=== PATIENT | female | born 2000 | race Caucasian/White ===

== ENCOUNTER 2021-10-17 14:37 | Outpatient (REF) | payer MEDICAID, SELFPAY ==
--- NOTE | ~2021-10-17 | XR_ITS ---
EXAMINATION: XR ELBOW, RIGHT CLINICAL INFORMATION: Right elbow pain. COMPARISON: None TECHNIQUE: AP, lateral, and oblique views of the right elbow. FINDINGS: No displaced fracture or significant joint effusion. Alignment is anatomic. Joint spaces are maintained. XR/XR elbow RT min 3V IMPRESSION: No acute abnormality.
== END 2021-10-17 14:38 | disposition home or self-care (01) ==
LOC: HO.XRAY 14:37
PROVIDERS: Absent Provider Internal Medicine; PCP Internal Medicine; Visit Provider Student in an Organized Health Care Education/Training Program
DX: M25.521 Pain in right elbow (principal)
CPT/HCPCS: 73080

== ENCOUNTER 2022-08-11 16:26 | Emergency (ER) | payer MEDICAID, SELFPAY ==
[2022-08-11 16:30] VITALS: BP 118/75; PULSE 79; RESP 18; TEMP 36.9; O2SAT 100; BMI 23.3
--- NOTE | 2022-08-11 16:34 | ED.SKABFB ---
HPI - Skin/Abscess/Foreign Bdy General Chief complaint: Skin/Abscess/Foreign Body <TERRY Pollock - Last Filed: 08/11/22 16:38> Stated complaint: stabbed w needle at work <TERRY Pollock - Last Filed: 08/11/22 16:38> Time Seen by Provider: 08/11/22 17:41 <TERRY Pollock Last Filed: 08/11/22 16:38> Source: patient <TERRY Armendariz Last Filed: 08/11/22 17:52> Mode of arrival: ambulatory <TERRY Armendariz Last Filed: 08/11/22 17:52> Limitations: no limitations <TERRY Armendariz Last Filed: 08/11/22 17:52> History of Present Illness HPI narrative: This is a 21-year-old female presenting with a work related injury patient was accidentally stuck by a uncapped needle to her right hand ( webspace b/y finger 1-2) , she reports that she works at [employer] and she was taking out the trash, unknown whether not needle was used. She reports after the needle injury she vigorously washed the area with soap, water and peroxide. Patient does not know who the needle belong to therefore does not know the HIV/hepatitis-C status of other person. She personally does not have a known history of HIV or hepatitis-C. <TERRY Armendariz Last Filed: 08/11/22 17:52> Related Data Allergies/Adverse reactions: Allergies Allergy/AdvReac Type Severity Reaction Status Date / Time No Known Allergies Allergy Verified 08/11/22 16:32 <TERRY Pollock Last Filed: 08/11/22 16:38> Review of Systems Review of Systems: Constitutional : No Fever, No Chills, Cardiovascular : No Chest Pain, No SOB Respiratory : No Dyspnea Gastrointestinal : No abdominal pain Musculoskeletal : No Joint Swelling Skin : No rash, positive puncture wound Neuro : No Weakness, No Numbness Psych : No SI/HI <TERRY Armendariz Last Filed: 08/11/22 17:52> Yes all other systems are reviewed and are negative <TERRY Armendariz - Last Filed: 08/11/22 17:52> [facility] Past Medical History Attestation statement: The following information was validated with the patient. <TERRY Armendariz - Last Filed: 08/11/22 17:52> Source: old records reviewed and nursing notes reviewed <TERRY Armendariz - Last Filed: 08/11/22 17:52> Physical Exam Vital Signs: Vital Signs: Last Vital Signs Temp 98.4 F 08/11/22 16:30 Pulse 79 08/11/22 16:30 Resp 18 08/11/22 16:30 BP 118/75 08/11/22 16:30 Pulse Ox 100 08/11/22 16:30 O2 Del Method Room Air 08/11/22 16:30 BMI result Body Mass Index 23.3 <TERRY Pollock - Last Filed: 08/11/22 16:38> Vital Signs: Last Vital Signs Temp 98.4 F 08/11/22 16:30 Pulse 79 08/11/22 16:30 Resp 18 08/11/22 16:30 BP 118/75 08/11/22 16:30 Pulse Ox 100 08/11/22 16:30 O2 Del Method Room Air 08/11/22 16:30 BMI result Body Mass Index 23.3 <TERRY Armendariz - Last Filed: 08/11/22 17:52> Course Course Course Narrative: This is an RME: Additional HPI, ROS, PE not included below will be deferred to primary provider. This is a 21-year-old female presents emergency department today for evaluation of puncture wound to her right hand by an uncapped needle while taking the trash out at [facility]. The wound did not bleed, and she washed her puncture wound with a full bottle of peroxide. On examination, no obvious wound or puncture on her hand. VSS. <TERRY Pollock - Last Filed: 08/11/22 16:38> Reevaluation(s) Reevaluation #1: This time patient does not want post exposure prophylaxis will give her information for follow-up with Infectious Disease, and explained her that she can return if she changes her mind. Educated patient on diagnosis and treatment plan, answered all question, patient verbalizes understanding. At this time patient will be discharged home, advised to return with new or worsening symptoms. Educated on worrisome signs and symptoms and when to return. At this time I feel comfortable discharge home. HIV and hepatitis testing pending she will be called only if results are positive. I did have a long conversation with patient of risks versus benefits of initiating PEEP, patient chooses to wait until results are back <TERRY Armendariz - Last Filed: 08/11/22 17:52> Time: 17:47 <TERRY Armendariz - Last Filed: 08/11/22 17:52> Medical Decision Making Medical Decision Making [facility] Narrative: [id number] 21-year-old female presents status post puncture wound with uncapped needle of unknown person. Work related injury happened just prior to arrival. Physical examination benign. Unable to appreciate puncture wound. No bleeding. Concerns for possible transmission of infectious diseases such as hepatitis C or HIV. No signs of cellulitis or active bleeding at this time. Neurovascular status intact Based off of HIV Needle Stick Risk Assessment RASP << 0.001% or 1 in [id number] PEP not indicated according to the article however leaving it up to patient Plan basic labs, HIV and hepatitis-C testing <TERRY Armendariz Last Filed: 08/11/22 17:52> Differential Diagnosis Differential Diagnoses: The differential diagnosis associated with the presentation includes <TERRY Armendariz Last Filed: 08/11/22 17:52> Concerns for possible transmission of infectious diseases such as hepatitis C or HIV. No signs of cellulitis or active bleeding at this time. Neurovascular status intact <TERRY Armendariz Last Filed: 08/11/22 17:52> Admission/Observation Consideration of admission/observation: Escalation of care including admission/observation considered <TERRY Armendariz Last Filed: 08/11/22 17:52> Lab Data [facility] Lab Attestation statement: I reviewed the patient's lab results. <TERRY Armendariz Last Filed: 08/11/22 17:52> Result Diagrams: 08/11/22 17:26 08/11/22 17:26 <TERRY Pollock Last Filed: 08/11/22 16:38> Labs: Lab Results 08/11/22 Range/Units 17:26 WBC 9.0 (4.8-10.8) X10*3/uL RBC 4.73 (4.20-5.50) X10*6/uL Hgb 12.1 (12.0-16.0) g/dl Hct 37.9 (37.0-47.0) % MCV 80.1 (80.0-98.0) fL MCH 25.6 L (27.0-33.0) pg MCHC 31.9 (31.0-35.0) g/dl RDW 13.0 (11.0-16.0) % Plt Count 306 (160-400) X10*3/uL MPV 10.3 (9.4-12.3) fL Immature Gran % (Auto) 0.2 (0.0-0.4) % Neut % (Auto) 62.3 (45-73) % Lymph % (Auto) 30.9 (20-40) % King % (Auto) 5.9 (2-11) % Eos % (Auto) 0.3 (0-4) % Baso % (Auto) 0.4 (0-2) % Lymph # (Auto) 2.8 (1.2-4.9) X10*3/uL King # (Auto) 0.5 (0.1-1.2) X10*3/uL Eos # (Auto) 0.0 (0.0-0.4) X10*3/uL Baso # (Auto) 0.0 (0.0-0.2) X10*3/uL Abs Immat Gran (auto) 0.02 (0.00-0.03) X10*3/uL Absolute Neuts (auto) 5.6 (2.0-8.3) x10*3/uL Absolute Nucleated RBC 0.000 (0.0-0.012) X10*3/uL Nucleated RBC % (auto) 0.0 (0.0-0.2) /100WBC <TERRY Pollock - Last Filed: 08/11/22 16:38> Lab Results 08/11/22 Range/Units 17:26 WBC 9.0 (4.8-10.8) X10*3/uL RBC 4.73 (4.20-5.50) X10*6/uL Hgb 12.1 (12.0-16.0) g/dl Hct 37.9 (37.0-47.0) % MCV 80.1 (80.0-98.0) fL MCH 25.6 L (27.0-33.0) pg MCHC 31.9 (31.0-35.0) g/dl RDW 13.0 (11.0-16.0) % Plt Count 306 (160-400) X10*3/uL MPV 10.3 (9.4-12.3) fL Immature Gran % (Auto) 0.2 (0.0-0.4) % Neut % (Auto) 62.3 (45-73) % Lymph % (Auto) 30.9 (20-40) % King % (Auto) 5.9 (2-11) % Eos % (Auto) 0.3 (0-4) % Baso % (Auto) 0.4 (0-2) % Lymph # (Auto) 2.8 (1.2-4.9) X10*3/uL King # (Auto) 0.5 (0.1-1.2) X10*3/uL Eos # (Auto) 0.0 (0.0-0.4) X10*3/uL Baso # (Auto) 0.0 (0.0-0.2) X10*3/uL Abs Immat Gran (auto) 0.02 (0.00-0.03) X10*3/uL Absolute Neuts (auto) 5.6 (2.0-8.3) x10*3/uL Absolute Nucleated RBC 0.000 (0.0-0.012) X10*3/uL Nucleated RBC % (auto) 0.0 (0.0-0.2) /100WBC <TERRY Armendariz - Last Filed: 08/11/22 17:52> Core Measures AMI core measures followed: Yes <TERRY Armendariz Last Filed: 08/11/22 17:52> Measure exclusions: not indicated <TERRY Armendariz - Last Filed: 08/11/22 17:52> Critical Care Time Critical Care Time Critical Care Time: No <TERRY Armendariz - Last Filed: 08/11/22 17:52> Discharge Plan Discharge Clinical Impression: Accidental hypodermic needlestick injury <TERRY Pollock Last Filed: 08/11/22 16:38> Patient Disposition: Home, Self-Care <TERRY Pollock Last Filed: 08/11/22 16:38> Instructions: Needle Stick Injuries (ED) <TERRY Pollock - Last Filed: 08/11/22 16:38> Additional Instructions: Take your medications as prescribed. If you were prescribed antibiotics today, it is important that you take your medication to their entirety, do not skip any doses, do not finish them early. Follow-up with your primary care provider this week. Return to the emergency department with new or worsening symptoms. Such as fevers, chills, chest pain, shortness of breath, nausea, vomiting, dizziness, headache, vision changes, lethargy In case of emergency call 911 You decided to not get post exposure prophylactic treatment. If you change your mind please return and please follow-up with Infectious Disease. Also, please follow-up with the were connection as this was a work related injury <TERRY Pollock - Last Filed: 08/11/22 16:38> Referrals: Marcela Eason MD [Physician] - 2 days <TERRY Pollock - Last Filed: 08/11/22 16:38> Stand Alone Forms: Work/School Release <TERRY Pollock - Last Filed: 08/11/22 16:38>
[2022-08-11 17:31] LABS: MANUAL DIFF FLAG NO
[2022-08-11 17:33] LABS: Basophils Percent Auto 0.4 % (0-2); Eosinophils Percent Auto 0.3 % (0-4); Hematocrit 37.9 % (37.0-47.0); Hemoglobin 12.1 g/dl (12.0-16.0); Imm Gran Abs Auto 0.02 X10*3/uL (0.00-0.03); Imm Gran Pct Auto 0.2 % (0.0-0.4); Lymphocytes Absolute Auto 2.8 X10*3/uL (1.2-4.9); Lymphocytes Percent Auto 30.9 % (20-40); Mean Corpuscular HGB Conc 31.9 g/dl (31.0-35.0); Mean Corpuscular Hemoglobin 25.6 pg (27.0-33.0); Mean Corpuscular Volume 80.1 fL (80.0-98.0); Mean Platelet Volume 10.3 fL (9.4-12.3); Monocytes Absolute Auto 0.5 X10*3/uL (0.1-1.2); Monocytes Percent Auto 5.9 % (2-11); Neutrophils Absolute Auto 5.6 x10*3/uL (2.0-8.3); Neutrophils Percent Auto 62.3 % (45-73); Platelet Count 306 X10*3/uL (160-400); Red Blood Count 4.73 X10*6/uL (4.20-5.50)
[2022-08-11 17:56] LABS: Alanine Aminotransferase 10 U/L (0-31); Albumin Level 4.3 g/dL (3.5-5.0); Alkaline Phosphatase 57 U/L (39-117); Anion Gap 10 (12-20); Aspartate Amino Transferase 15 U/L (5-31); Bilirubin Direct 0.5 mg/dL (0.0-0.5); Bilirubin Total 1.7 mg/dL (0.0-1.0); Blood Urea Nitrogen 13 mg/dL (9-16); Calcium 9.2 mg/dL (8.4-10.2); Carbon Dioxide 26 mmol/L (22-29); Chloride 105 mmol/L (96-108); Creatinine Clr Calc Pharmacy 104.4; Estimated Glomerular Filt Rate > 60; Glucose Random 89 mg/dL (60-115); Sodium 137 mmol/L (135-145)
[2022-08-11 18:08] VITALS: BP 113/80; PULSE 63; RESP 16; O2SAT 99
[2022-08-11 18:30] LABS: HCG Quantitative < 2 mIU/mL
[2022-08-11 19:55] LABS: HIV AB/AG Nonreactive (Nonreactive); HIV Num 1 0.06 S/CO (0.00-0.99)
[2022-08-13 11:49] LABS: HBS Num1 0.17 mIU/mL (0-7.99); HBsAGNum1 0.34 S/CO (0.00-0.99); Hepatitis B Core Antibody Nonreactive (Nonreactive); Hepatitis B Surface Antigen Negative (Negative); ~Hepatitis B Surface Antibody NONREACTIVE (Nonreactive)
[2022-08-13 12:12] LABS: Hepatitis C Ab Exposure Source Nonreactive (Nonreactive)
== END 2022-08-11 18:13 | disposition home or self-care (01) ==
PROVIDERS: Physician Assistant; Physician Assistant Medical; Emergency Provider Internal Medicine; PCP Internal Medicine
DX: Z04.2 Encounter for examination and observation following work accident (principal); Z77.21 Contact with and (suspected) exposure to potentially hazardous body fluids
CPT/HCPCS: 36415; 80048; 80076; 84702; 85025; 86803; 99283; 99284

== ENCOUNTER 2023-12-07 12:59 | Emergency (ER) | payer MEDICAID, SELFPAY ==
--- NOTE | ~2023-12-07 | US_ITS ---
EXAMINATION: US ABDOMEN LIMITED CLINICAL INFORMATION: Epigastric pain, history of gallstones. COMPARISON: CT abdomen/pelvis 07/03/2019. TECHNIQUE: Targeted sonographic evaluation of the gallbladder. FINDINGS: There is a 1.6 cm impacted calculus in the gallbladder neck. There is no evidence of gallbladder wall thickening or pericholecystic free fluid. There is a negative Farnsworth's sign. Normal caliber of the common bile duct measuring up to 0.4 cm in diameter. US/US abdomen limited IMPRESSION: Cholelithiasis without sonographic evidence of acute cholecystitis. Electronically signed by: Dianna Hahn MD 12/07/2023 03:44 PM EDT
--- NOTE | ~2023-12-07 | XR_ITS ---
EXAMINATION: XR CHEST CLINICAL INFORMATION: CP COMPARISON: No relevant prior imaging available at the time of dictation. TECHNIQUE: 2 views of the chest FINDINGS: Lines and tubes: None. Clear lungs. No pleural effusion. No pneumothorax. Normal cardiomediastinal silhouette. XR/XR chest 2V IMPRESSION: * Clear lungs. Electronically signed by: Petty Jordan MD 12/07/2023 03:13 PM EDT RP
--- NOTE | ~2023-12-07 | CT_ITS ---
EXAMINATION: CT ANGIOGRAM OF THE CHEST WITH AND WITHOUT CONTRAST (CT PULMONARY ANGIOGRAM FOR PE) CLINICAL INFORMATION: x4 weeks, pleuritic chest pain, R/O PE COMPARISON: No pertinent prior studies are available for comparison. TECHNIQUE: Prior to contrast administration, noncontrast localization images were obtained. Subsequently, multidetector volumetric imaging was performed from the thoracic inlet to below the diaphragms following the administration of 65 mL Omnipaque 350 intravenous contrast. No contrast reaction reported. Sagittal, coronal, and MIP oblique sagittal reformatted images were obtained on the CT workstation, uploaded to PACS, and reviewed. Total exam dose-length product 289 mGy-cm FINDINGS: QUALITY OF STUDY/CONTRAST BOLUS: Satisfactory. PULMONARY ARTERIES: No central or segmental pulmonary emboli. THORACIC AORTA: No aneurysm or dissection. LUNG: No focal consolidation, nodules or masses. PLEURA: No pleural effusion or pneumothorax. MEDIASTINUM: Normal heart size. No pericardial effusion. No hilar or mediastinal lymphadenopathy. No evidence of septal bowing or right heart strain. CHEST WALL/AXILLA: No axillary or internal mammary lymphadenopathy. OSSEOUS STRUCTURES: No acute or suspicious osseous abnormality. UPPER ABDOMEN: Unremarkable. No reflux of contrast into the hepatic veins to suggest elevated right heart pressures. CT/CT angio chest PE protocol IMPRESSION: No acute pulmonary embolus VTE: negative Electronically signed by: Davidson Mcwilliams MD 12/07/2023 06:15 PM EDT
--- NOTE | 2023-12-07 13:02 | ECG_ITS ---
Test Reason : CHEST PAIN Blood Pressure : / mmHG Vent. Rate : 065 BPM Atrial Rate : 065 BPM P-R Int : 138 ms QRS Dur : 082 ms QT Int : 388 ms P-R-T Axes : 016 063 018 degrees QTc Int : 403 ms Normal sinus rhythm Normal ECG When compared with ECG of 27-AUG-2018 13:40, No significant change was found Referred By: Florinda Jain Electronically Signed By:NEFTALY CRAWFORD
[2023-12-07 13:15] VITALS: BP 128/92; PULSE 64; RESP 18; TEMP 36.4; O2SAT 98; BMI 33.0
--- NOTE | 2023-12-07 13:15 | ED_ITS ---
HPI - Chest Pain General Chief Complaint: Chest Pain Stated Complaint: Chest Pain Since Last Night Time Seen by Provider: 12/07/23 16:01 Source: patient Mode of arrival: ambulatory Limitations: no limitations History of Present Illness ED Provider: Dr. Harvey Thorpe HPI narrative: 23-year-old female , 4 weeks who presents emergency department for evaluation of sudden onset of mid sternal stabbing/tightness which is worse with breathing and movement. The pain radiates to her back. The pain came on suddenly yesterday at 21:00 hours while the patient was resting. She states she did fall asleep when she woke up this morning she still had the pain. She states that the pain did improve after she took ibuprofen and currently the pain is 4/10. The patient states that the pain does radiate to her back. She does feel short of breath but denied dyspnea on exertion. Patient denied fever or chills. She denied sore 3 0, cough, nausea, vomiting or diarrhea. She states she has a chronic runny nose. Patient was not had any pain in her lower extremities or lower abdominal pain. She denied headache. The patient states there were no complications during her or her delivery. She states she had a normal vaginal delivery. The patient does not breast-feeding. Related Data Allergies Allergy/AdvReac Type Severity Reaction Status Date / Time No Known Allergies Allergy Verified 12/07/23 13:17 Review of Systems 2 Review of Systems: Yes all other systems are reviewed and are negative [facility] Past Medical History [facility] Narrative: Social history: She denies tobacco, alcohol and drug use. Social History Social History Alcohol intake: never Smoked in Last 30 Days: No Use of substances other than those prescribed or required for medical reasons: No Advance Directives: No Advance Directives Information Provided: No Do you have a plan to hurt others: No Plan Patient : No Physical Exam 2 Vital Signs: Vital Signs: Last Vital Signs Temp 97.6 F 12/07/23 19:16 Pulse 57 12/07/23 19:16 Resp 16 12/07/23 19:16 BP 110/79 12/07/23 19:16 Pulse Ox 98 12/07/23 19:16 O2 Del Method Room Air 12/07/23 19:16 BMI result Body Mass Index 33.0 Vital signs revealed elevated diastolic blood pressure of 128/92 otherwise unremarkable. O2 saturation on room air was 98% Exam: General: Awake, alert in no distress Head: Normocephalic, atraumatic EENT: PERRL, Lids normal, sclera normal, conjunctiva normal, nose normal , ears normal, throat without erythema or exudates Neck: Supple, no adenopathy Lung: breath sounds symmetric, no wheezing, rales or rhonchi Chest: symmetric movement, nontender Heart: regular rate and rhythm, normal S1, S2 no murmurs or rubs Abdomen: soft, non-tender, nondistended, normal bowel sounds Back: no vertebral tenderness, no CVAT Extremities: no deformities, moves all extremities symmetrically Neuro: Awake, alert, oriented, normal speech, cranial nerves intact, moves all extremities symmetrically Psych: Pleasant, cooperative Course Course Course Narrative: This is a rapid medical exam. Deferred additional HPI, ROS, PE to primary provider. 23 yo female with history of gallstones here with complaints of epigastric pain/chest pain/back pain since last evening. Had steak/shrimp/mashed potatoes last evening. She is 4 weeks PP. Pain is worsened with inspiration. No swelling/pain in LE Will obtain labs, EKG, CXR, abdominal US, UA VSS -Corrie Jain APRN Medications Administered Discontinued Medications Generic Name Dose Route Start Last Admin Trade Name Freq PRN Reason Stop Dose Admin Sodium Chloride 1,000 mls @ 999 mls/hr 12/07/23 16:39 12/07/23 19:09 Ns IV 12/07/23 17:39 Infused .Q1H1M STA Infusion Iohexol 65 ml 12/07/23 18:09 12/07/23 18:09 Iohexol 350 Mg/Ml 100 Ml Infus..Btl IV 12/07/23 18:10 65 ml ONCE ONE Administration Medical Decision Making Medical Decision Making [facility] Narrative: 23-year-old female , 4 weeks who presents emergency department for evaluation of sudden onset of mid sternal stabbing/tightness which is worse with breathing and movement. Pain radiates to her back. The pain came on suddenly yesterday at 21:00 hours while the patient was resting, patient fell asleep but when she woke up this morning the pain was still there. Patient did take ibuprofen with some relief the pain but the pain is 4/10. She did feel short of breath but otherwise had no other complaints. Vital signs revealed an elevated diastolic blood pressure of 128/92. Physical examination was unremarkable with no tenderness palpation of her chest. Differential diagnosis: ?Includes but is not limited to myocardial infarction, myocardial ischemia, cardiomyopathy, pulmonary embolism, aortic dissection, costochondritis, chest wall pain, pleurisy, anemia, electrolyte abnormalities, preeclampsia Course: 16:56 My interpretation the patient's laboratory evaluation is as follows: WBC elevated 12,000. No anemia with an H&H of 13 and 42, low MCV of 78. CMP was normal except for an elevated alk-phos of 127. High sensitive troponin I was below detectable limits. Lipase was normal. Chest x-ray revealed no acute disease. EKG was unremarkable. Right upper quadrant ultrasound revealed cholelithiasis with no evidence of cholecystitis. Given the pleuritic nature of the patient's pain and sudden onset and the fact that she is 4 weeks , I did order a CT pulmonary angiogram PE protocol to rule out pulmonary embolism. 18:[address] angiogram PE protocol revealed no evidence for pulmonary embolism no other acute findings. Patient's symptoms are consistent with pleurisy and I did discuss the treatment and management of this with the patient. Patient was advised to take ibuprofen 400 mg every 6 hours for the next 4 days then as needed for pain. She was also advised to take Tylenol 1000 mg every 6 hours as needed for pain is well. She was given printed and verbal instructions and discharged home. Admission/Observation Consideration of admission/observation: Escalation of care including admission/observation considered Lab Data [facility] Lab Attestation statement: I reviewed the patient's lab results. 12/07/23 13:22 12/07/23 13:22 Labs: Lab Results 12/07/23 12/07/23 Range/Units 13:22 16:28 WBC 12.0 H (4.8-10.8) X10*3/uL RBC 5.37 (4.20-5.50) X10*6/uL Hgb 13.6 (12.0-16.0) g/dl Hct 42.1 (37.0-47.0) % MCV 78.4 L (80.0-98.0) fL MCH 25.3 L (27.0-33.0) pg MCHC 32.3 (31.0-35.0) g/dl RDW 12.7 (11.0-16.0) % Plt Count 317 (160-400) X10*3/uL MPV 10.2 (9.4-12.3) fL Immature Gran % (Auto) 0.2 (0.0-0.4) % Neut % (Auto) 70.9 (45-73) % Lymph % (Auto) 20.8 (20-40) % Brantley % (Auto) 6.7 (2-11) % Eos % (Auto) 1.0 (0-4) % Baso % (Auto) 0.4 (0-2) % Lymph # (Auto) 2.5 (1.2-4.9) X10*3/uL Brantley # (Auto) 0.8 (0.1-1.2) X10*3/uL Eos # (Auto) 0.1 (0.0-0.4) X10*3/uL Baso # (Auto) 0.1 (0.0-0.2) X10*3/uL Abs Immat Gran (auto) 0.03 (0.00-0.03) X10*3/uL Absolute Neuts (auto) 8.5 H (2.0-8.3) x10*3/uL Absolute Nucleated RBC 0.000 (0.0-0.012) X10*3/uL Nucleated RBC % (auto) 0.0 (0.0-0.2) /100WBC PT 10.6 L (11.1-13.3) SEC INR 0.9 (0.9-1.1) APTT 28.2 (26.0-36.8) SEC Sodium 139 (135-145) mmol/L Potassium 4.3 (3.3-5.1) mmol/L Chloride 105 (96-108) mmol/L Carbon Dioxide 22 (22-29) mmol/L Anion Gap 16 (12-20) BUN 11 (9-16) mg/dL Creatinine 0.75 (0.5-1.4) mg/dL Estim Creat Clear Calc 123.5 Estimated GFR > 60 Random Glucose 100 (60-115) mg/dL Calcium 9.8 D (8.4-10.2) mg/dL Total Bilirubin 0.5 (0.0-1.0) mg/dL Direct Bilirubin 0.2 (0.0-0.5) mg/dL AST 15 (5-31) U/L ALT 21 (0-31) U/L Alkaline Phosphatase 127 H (39-117) U/L Troponin I High Sens < 2.7 (<3.5-17.0) ng/L Total Protein 7.8 (6.5-8.0) g/dL Albumin 4.2 (3.5-5.0) g/dL Lipase 26 (8-78) U/L Urine Color Yellow Urine Appearance Cloudy Urine pH 7.0 (5.0-9.0) Ur Specific Norman 1.025 (1.005-1.025) Urine Protein Negative (Neg-Trace) mg/dL Urine Glucose (UA) Negative (Negative) mg/dL Urine Ketones Negative (Negative) mg/dL Urine Blood Negative (Negative) Urine Nitrite Negative (Negative) Ur Leukocyte Esterase Moderate (2+) H (Negative) Urine RBC 0-2 (0-2) /HPF Urine WBC 21-50 H (0-5) /HPF Ur Squamous Epith Cells 11-20 (0-2) /HPF Urine Bacteria 3+ (None Seen) Hyaline Casts 0-2 (0-2) /LPF Urine Test NEGATIVE (NEGATIVE) Independent Interpretation I performed an independent interpretation of an: EKG Interpretation: 16:06 My interpretation patient's 12 EKG done at 13:00 hours is as follows: Normal sinus rhythm with a rate of 65, normal NV interval, QRS duration and QTC interval, no ST segment elevation, no ST segment depression, inverted T-wave in 3 and V1, no PACs, no PVCs Radiology Impression Discussion of test interpretation with radiology: I have reviewed the radiologist's reading. Radiologist Impression: US abdomen limited IMPRESSION: Cholelithiasis without sonographic evidence of acute cholecystitis. Dictated By: Korin Hahn XR chest 2V IMPRESSION: * Clear lungs Dictated By: Petty Jordan MD CT angio chest PE protocol IMPRESSION: No acute pulmonary embolus VTE: negative Dictated By: Davidson Mcwilliams MD Chronic Conditions Patient?s care impacted by: Other ( x4 weeks) Discharge Plan Discharge Clinical Impression: Chest pain, pleuritic Patient Disposition: Home, Self-Care Instructions: Pleurisy (ED) Additional Instructions: Your blood work was unremarkable. Your EKG was normal. Your chest x-ray did not reveal any findings to explain your pain. The CT pulmonary angiogram PE protocol did not reveal any blood clots in your lungs which is very reassuring. The ultrasound of your gallbladder did reveal gallstones but you do not have any evidence for inflammation of the gallbladder. Your pain is worse with breathing and this is called pleurisy or pleuritic chest pain. This is sometimes caused by a virus of the space around your lungs. The treatment for pleurisy is to take anti-inflammatory medications. Take your ibuprofen 600 mg pills 1 pills every 6 hours for the next 4 days then after that every 6 hours as needed for pain Take extra-strength Tylenol (acetaminophen) 500 mg pills, 2 pills every 6 hours as needed for pain. Follow-up with your doctor in 2 days. Please return to the emergency department if your symptoms get worse or if you develop any symptoms that are concerning to you. Interventions: ED Discharge Assessment Last Done: 12/07/23 19:16 Discharge Date/Time: 12/07/23 19:17 Print Language: Prydeinig
[2023-12-07 13:27] LABS: MANUAL DIFF FLAG NO
[2023-12-07 13:28] LABS: Basophils Absolute Auto 0.1 X10*3/uL (0.0-0.2); Basophils Percent Auto 0.4 % (0-2); Eosinophils Absolute Auto 0.1 X10*3/uL (0.0-0.4); Hematocrit 42.1 % (37.0-47.0); Hemoglobin 13.6 g/dl (12.0-16.0); Imm Gran Abs Auto 0.03 X10*3/uL (0.00-0.03); Imm Gran Pct Auto 0.2 % (0.0-0.4); Lymphocytes Absolute Auto 2.5 X10*3/uL (1.2-4.9); Lymphocytes Percent Auto 20.8 % (20-40); Mean Corpuscular HGB Conc 32.3 g/dl (31.0-35.0); Mean Corpuscular Hemoglobin 25.3 pg (27.0-33.0); Mean Corpuscular Volume 78.4 fL (80.0-98.0); Mean Platelet Volume 10.2 fL (9.4-12.3); Monocytes Absolute Auto 0.8 X10*3/uL (0.1-1.2); Monocytes Percent Auto 6.7 % (2-11); Neutrophils Absolute Auto 8.5 x10*3/uL (2.0-8.3); Neutrophils Percent Auto 70.9 % (45-73); Platelet Count 317 X10*3/uL (160-400); Red Blood Count 5.37 X10*6/uL (4.20-5.50); Red Cell Distribution Width 12.7 % (11.0-16.0)
[2023-12-07 13:34] LABS: INTERNATIONAL NORM RATIO 0.9 (0.9-1.1); Prothrombin Time 10.6 SEC (11.1-13.3)
[2023-12-07 13:42] LABS: Alanine Aminotransferase 21 U/L (0-31); Albumin Level 4.2 g/dL (3.5-5.0); Alkaline Phosphatase 127 U/L (39-117); Anion Gap 16 (12-20); Aspartate Amino Transferase 15 U/L (5-31); Bilirubin Direct 0.2 mg/dL (0.0-0.5); Bilirubin Total 0.5 mg/dL (0.0-1.0); Blood Urea Nitrogen 11 mg/dL (9-16); Calcium 9.8 mg/dL (8.4-10.2); Carbon Dioxide 22 mmol/L (22-29); Chloride 105 mmol/L (96-108); Creatinine Clr Calc Pharmacy 123.5; Estimated Glomerular Filt Rate > 60; Glucose Random 100 mg/dL (60-115); Lipase 26 U/L (8-78); Potassium 4.3 mmol/L (3.3-5.1); Sodium 139 mmol/L (135-145); Total Protein 7.8 g/dL (6.5-8.0)
[2023-12-07 13:52] LABS: Troponin-I High Sensitivity < 2.7 ng/L (<3.5-17.0)
[2023-12-07 16:17] VITALS: BP 105/63; PULSE 61; RESP 14; TEMP 36.3; O2SAT 99
[2023-12-07 16:36] LABS: Appearance Urine Cloudy; Color Urine Yellow; Glucose Urine UA Negative (Negative); Leukocyte Esterase Urine Moderate (2+) (Negative); Nitrite Urine Negative (Negative); Specific Gravity - Urine 1.025 (1.005-1.025); UMIC TRIGGER UACC YES; UPreg QC Valid YES; Urine Blood Negative (Negative); Urine Ketones Negative (Negative); Urine Pregnancy NEGATIVE (NEGATIVE); Urine Protein Negative (Neg-Trace)
[2023-12-07 16:40] LABS: Bacteria Urine 3+ (None Seen); Hyaline Casts Urine 0-2 /LPF (0-2); RBC Urine 0-2 /HPF (0-2); UACC Culture Trigger YES; WBC Urine 21-50 /HPF (0-5)
[2023-12-07 16:52] LABS: Partial Thromboplastin Time 28.2 SEC (26.0-36.8)
[2023-12-07] MEDS: 0.9 % Sodium Chloride 1,000 ML 999 ML IV (16:52)
[2023-12-07 17:00] VITALS: BP 111/70; PULSE 58; RESP 12; O2SAT 99
--- NOTE | 2023-12-07 17:03 | PC.NURSE ---
Pt comes to ED today for c/o L chest pain 07/23 with radiation to the back. Pain began last night with no relieving factors. IVF running. VSS and A&Ox3
[2023-12-07 18:00] VITALS: BP 110/79; PULSE 57; RESP 16; TEMP 36.4; O2SAT 98
[2023-12-07] MEDS: iohexoL 350 MG/ML 100 ML INFUS..BTL 65 ML IV (18:09)
[2023-12-07 19:16] VITALS: BP 110/79; PULSE 57; RESP 16; TEMP 36.4; O2SAT 98
== END 2023-12-07 19:17 | disposition home or self-care (01) ==
PROVIDERS: Nurse Practitioner Family; Emergency Provider Emergency Medicine Emergency Medical Services; PCP Internal Medicine
DX: R07.9 Chest pain, unspecified (principal); R06.02 Shortness of breath
CPT/HCPCS: 36415; 71046; 71275; 76705; 80048; 80076; 81001; 81025; 83690; 84484; 85025; 85610; 85730; 87086; 93005; 96360; 96361; 99285; Q9967

== ENCOUNTER 2023-12-20 19:41 | Inpatient (IN) | payer MEDICAID, SELFPAY ==
--- NOTE | ~2023-12-20 | US_ITS ---
EXAMINATION: US ABDOMEN LIMITED CLINICAL INFORMATION: Right upper quadrant pain. COMPARISON: Ultrasound abdomen dated December 07, 2023. TECHNIQUE: Real-time imaging of the right upper quadrant abdominal viscera. Gallbladder and common bile duct were imaged as per request of ordering physician. FINDINGS: GALLBLADDER: The gallbladder is physiologically distended . There is a 1.4 cm calculus at the gallbladder neck. There is no gallbladder wall thickening or pericholecystic fluid. COMMON BILE DUCT: Normal in caliber measuring 0.3 cm in diameter. US/US abdomen limited IMPRESSION: Cholelithiasis. No sonographic evidence of acute cholecystitis. Electronically signed by: Baldev Wang DO 12/20/2023 09:19 PM EDT
[2023-12-20 20:11] VITALS: BP 116/82; PULSE 79; RESP 18; TEMP 36.4; O2SAT 97; BMI 32.8
--- NOTE | 2023-12-20 20:14 | ED_ITS ---
HPI - General Adult General Chief complaint: Abdominal Pain Stated complaint: abd pain, vomiting Time Seen by Provider: 12/20/23 22:39 Related Data Home Medications ?Medication ?Instructions ?Recorded ?Confirmed No Known Home Meds 12/21/23 12/21/23 Allergies Allergy/AdvReac Type Severity Reaction Status Date / Time No Known Allergies Allergy Verified 12/20/23 20:13 [facility] Social History Social History Household Members: Family Housing: House Do you presently have visiting nurse or other home services: No Alcohol intake: never Patient Tobacco Use Status: Never used Tobacco Smoked in Last 30 Days: No Use of substances other than those prescribed or required for medical reasons: No Currently Displaying Signs/Symptoms of Drug Intoxication Withdrawal: No Have you been hit, kicked, punched, or otherwise hurt by someone within the past year? If so, by whom?: No Do you feel safe in your current relationship?: No Current Relationship Is there a partner from a previous relationship who is making you feel unsafe now?: No Are you made to feel afraid or neglected: No Advance Directives: No Advance Directives Information Provided: No Do you have a plan to hurt others: No Plan Recently lost weight without trying: No Eating poorly because of decreased appetite: No Nutrition Risks: No Nutritional Risk Patient : No : No Poor oral hygiene: No Physical Exam ED Vital Signs: Vital Signs - 24 hr 12/20/23 20:11 12/20/23 21:52 Temperature 97.6 F 98.5 F Pulse Rate 79 61 Respiratory Rate 18 17 Blood Pressure 116/82 124/77 Pulse Oximetry 97 99 Oxygen Delivery Method Room Air Room Air BMI result Body Mass Index 32.8 Course Course Course Narrative: RME performed by Indira Ng PA-C. Patient is a 23 year old assigned female at presenting to the emergency department with right upper quadrant abdominal pain. Patient states she is having sharp, stabbing, right upper quadrant abdominal pain. Patient states that she has a history of gallstones. Detailed physical exam and review of systems are deferred to the lower in supervisor. Labs, imaging, and swabs ordered. Patient placed back in the waiting room pending room availability and results. Patient seen and dispositioned by Dr. Haynes. Please refer to his note. Medications Administered Generic Name Dose Route Start Last Admin Trade Name Freq PRN Reason Stop Dose Admin Acetaminophen 1,000 mg in 100 mls @ 400 mls/hr 12/21/23 00:00 12/21/23 11:23 Ofirmev IV 12/21/23 18:14 Infused Q6H HERNÁN Infusion Dextrose/Lactated Ringer's 1,000 mls @ 80 mls/hr 12/20/23 23:45 12/21/23 11:39 D5lr IVCONT 0 mls/hr .[id number] HERNÁN Infusion Piperacillin Sod/Tazobactam 50 mls @ 100 mls/hr 12/21/23 08:00 12/21/23 09:18 Sod 3.375 gm/ Sodium Chloride IV Infused Q6H HERNÁN Infusion Oxycodone HCl 5 mg 12/20/23 23:59 12/21/23 01:30 Oxycodone Hcl Immed Release 5 Mg Tablet PO 5 mg Q6H PRN Administration Pain, Moderate(Pain Scale 4-6) Medical Decision Making Lab Data 12/21/23 05:16 12/20/23 20:29 Labs: Lab Results 12/20/23 Range/Units 20:29 WBC 15.5 H (4.8-10.8) X10*3/uL RBC 5.18 (4.20-5.50) X10*6/uL Hgb 13.0 (12.0-16.0) g/dl Hct 40.8 (37.0-47.0) % MCV 78.8 L (80.0-98.0) fL MCH 25.1 L (27.0-33.0) pg MCHC 31.9 (31.0-35.0) g/dl RDW 12.8 (11.0-16.0) % Plt Count 412 H D (160-400) X10*3/uL MPV 9.4 (9.4-12.3) fL Immature Gran % (Auto) 0.5 H (0.0-0.4) % Neut % (Auto) 85.8 H (45-73) % Lymph % (Auto) 10.5 L (20-40) % [place] % (Auto) 2.8 (2-11) % Eos % (Auto) 0.1 (0-4) % Baso % (Auto) 0.3 (0-2) % Lymph # (Auto) 1.6 (1.2-4.9) X10*3/uL [place] # (Auto) 0.4 (0.1-1.2) X10*3/uL Eos # (Auto) 0.0 (0.0-0.4) X10*3/uL Baso # (Auto) 0.1 (0.0-0.2) X10*3/uL Abs Immat Gran (auto) 0.07 H (0.00-0.03) X10*3/uL Absolute Neuts (auto) 13.3 H (2.0-8.3) x10*3/uL Absolute Nucleated RBC 0.000 (0.0-0.012) X10*3/uL Nucleated RBC % (auto) 0.0 (0.0-0.2) /100WBC Sodium 138 (135-145) mmol/L Potassium 3.9 (3.3-5.1) mmol/L Chloride 106 (96-108) mmol/L Carbon Dioxide 24 (22-29) mmol/L Anion Gap 12 (12-20) BUN 11 (9-16) mg/dL Creatinine 0.74 (0.5-1.4) mg/dL Estim Creat Clear Calc 124.9 Estimated GFR > 60 Random Glucose 120 H (60-115) mg/dL Calcium 9.4 (8.4-10.2) mg/dL Magnesium 2.0 (1.6-2.6) mg/dL Total Bilirubin 0.5 (0.0-1.0) mg/dL AST 16 (5-31) U/L ALT 19 (0-31) U/L Alkaline Phosphatase 109 (39-117) U/L Total Protein 8.0 (6.5-8.0) g/dL Albumin 4.2 (3.5-5.0) g/dL Beta HCG, Quant < 2 mIU/mL Urine Color Yellow Urine Appearance Clear Urine pH 8.5 (5.0-9.0) Ur Specific [place] 1.025 (1.005-1.025) Urine Protein 30 (1+) H (Neg-Trace) mg/dL Urine Glucose (UA) Negative (Negative) mg/dL Urine Ketones Negative (Negative) mg/dL Urine Blood Negative (Negative) Urine Nitrite Negative (Negative) Ur Leukocyte Esterase Small (1+) H (Negative) Urine RBC 0-2 (0-2) /HPF Urine WBC 6-10 H (0-5) /HPF Ur Squamous Epith Cells 11-20 (0-2) /HPF Urine Bacteria 2+ (None Seen) Hyaline Casts 0-2 (0-2) /LPF Influenza Type A (PCR) NEGATIVE (Negative) Influenza Type B (PCR) NEGATIVE (Negative) RSV RNA Qual (PCR) NEGATIVE (Negative) SARS-CoV-2 RNA (RT-PCR) NEGATIVE (Negative) Discharge Plan Discharge Clinical Impression: Gallstone (impacted) Patient Disposition: Admitted As Inpatient Interventions: Admission Worksheet (ED) Last Done: 12/21/23 02:30 Discharge Date/Time: 12/21/23 03:05
--- NOTE | 2023-12-20 20:26 | MHC.EDTECH ---
Patient brought into triage area,labs/Sars/Urine obtained and sent to lab.
[2023-12-20 20:36] LABS: MANUAL DIFF FLAG NO
[2023-12-20 20:39] LABS: Basophils Absolute Auto 0.1 X10*3/uL (0.0-0.2); Basophils Percent Auto 0.3 % (0-2); Eosinophils Percent Auto 0.1 % (0-4); Hematocrit 40.8 % (37.0-47.0); Imm Gran Abs Auto 0.07 X10*3/uL (0.00-0.03); Imm Gran Pct Auto 0.5 % (0.0-0.4); Lymphocytes Absolute Auto 1.6 X10*3/uL (1.2-4.9); Lymphocytes Percent Auto 10.5 % (20-40); Mean Corpuscular HGB Conc 31.9 g/dl (31.0-35.0); Mean Corpuscular Hemoglobin 25.1 pg (27.0-33.0); Mean Corpuscular Volume 78.8 fL (80.0-98.0); Mean Platelet Volume 9.4 fL (9.4-12.3); Monocytes Absolute Auto 0.4 X10*3/uL (0.1-1.2); Monocytes Percent Auto 2.8 % (2-11); Neutrophils Absolute Auto 13.3 x10*3/uL (2.0-8.3); Neutrophils Percent Auto 85.8 % (45-73); Platelet Count 412 X10*3/uL (160-400); Red Blood Count 5.18 X10*6/uL (4.20-5.50); Red Cell Distribution Width 12.8 % (11.0-16.0); White Blood Count 15.5 X10*3/uL (4.8-10.8)
[2023-12-20 20:42] LABS: Appearance Urine Clear; Color Urine Yellow; Glucose Urine UA Negative (Negative); Leukocyte Esterase Urine Small (1+) (Negative); Nitrite Urine Negative (Negative); PH 8.5 (5.0-9.0); Specific Gravity - Urine 1.025 (1.005-1.025); UMIC TRIGGER UACC YES; Urine Blood Negative (Negative); Urine Ketones Negative (Negative); Urine Protein 30 (1+) mg/dL (Neg-Trace)
[2023-12-20 20:54] LABS: Bacteria Urine 2+ (None Seen); Hyaline Casts Urine 0-2 /LPF (0-2); RBC Urine 0-2 /HPF (0-2); UACC Culture Trigger YES
[2023-12-20 21:00] LABS: Alanine Aminotransferase 19 U/L (0-31); Albumin Level 4.2 g/dL (3.5-5.0); Alkaline Phosphatase 109 U/L (39-117); Anion Gap 12 (12-20); Aspartate Amino Transferase 16 U/L (5-31); Bilirubin Total 0.5 mg/dL (0.0-1.0); Blood Urea Nitrogen 11 mg/dL (9-16); Calcium 9.4 mg/dL (8.4-10.2); Carbon Dioxide 24 mmol/L (22-29); Chloride 106 mmol/L (96-108); Creatinine Clr Calc Pharmacy 124.9; Estimated Glomerular Filt Rate > 60; Glucose Random 120 mg/dL (60-115); Potassium 3.9 mmol/L (3.3-5.1); Sodium 138 mmol/L (135-145)
[2023-12-20 21:13] LABS: HCG Quantitative < 2 mIU/mL; Influenza A PCR NEGATIVE (Negative); Influenza B PCR NEGATIVE (Negative); Resp Syncy Virus RNA Qual PCR NEGATIVE (Negative); SARS COV2 PCR INHOUSE NEGATIVE (Negative)
[2023-12-20 21:52] VITALS: BP 124/77; PULSE 61; RESP 17; TEMP 36.9; O2SAT 99
--- NOTE | 2023-12-20 23:52 | ED_ITS ---
HPI - Abdominal Pain General Chief Complaint: Abdominal Pain Stated Complaint: abd pain, vomiting Time Seen by Provider: 12/20/23 22:39 Source: patient Mode of arrival: ambulatory Limitations: no limitations History of Present Illness ED Provider: maritza HPI narrative: Patient with history of gallstones comes here for increased pain since she woke up in the morning associated with nausea and vomiting unable to hold any liquids or solids down patient has had ultrasound done prior to my evaluation which showed would 0.4 cm stone in gallbladder neck with no cholecystitis finding Related Data Allergies Allergy/AdvReac Type Severity Reaction Status Date / Time No Known Allergies Allergy Verified 12/20/23 20:13 Review of Systems Review of Systems Yes all other systems are reviewed and are negative [facility] Social History Social History Alcohol intake: never Advance Directives: No Advance Directives Information Provided: No Do you have a plan to hurt others: No Plan Physical Exam ED Vital Signs: Vital Signs - 24 hr 12/20/23 20:11 12/20/23 21:52 Temperature 97.6 F 98.5 F Pulse Rate 79 61 Respiratory Rate 18 17 Blood Pressure 116/82 124/77 Pulse Oximetry 97 99 Oxygen Delivery Method Room Air Room Air BMI result Body Mass Index 32.8 Appearance: Alert. Oriented X3. No acute distress. Eyes: No pallor or icterus ENT: Pharynx normal. Oral Mucosa moist Neck: Normal inspection. Neck supple. CVS: Normal heart rate and rhythm. Pulses normal. Respiratory: No respiratory distress. Equal air entry bilateral, no wheezing/rales/rhonchi Abdomen: Soft , tenderness right upper quadrant with guarding no rebound tenderness Bowel sounds are present, no mass palpable, no CVA tenderness Skin: Skin warm and dry. Normal skin color. Normal skin turgor. Extremities: No lower extremity edema. No calf tenderness Neuro: Oriented X 3. Medical Decision Making Medical Decision Making [facility] Narrative: Patient with 1.4 cm gallstone at the neck of the gallbladder with right upper quadrant pain with multiple times vomiting case discussed Dr. Forde surgeon will admit the patient to his service for possible cholecystectomy in a.m. likely patient has a impacted gallstone in the neck of the gallbladder Differential Diagnosis Differential Diagnoses: The differential diagnosis associated with the presentation includes Lab Data [facility] Lab Attestation statement: I reviewed the patient's lab results. 12/20/23 20:29 12/20/23 20:29 Labs: Lab Results 12/20/23 Range/Units 20:29 WBC 15.5 H (4.8-10.8) X10*3/uL RBC 5.18 (4.20-5.50) X10*6/uL Hgb 13.0 (12.0-16.0) g/dl Hct 40.8 (37.0-47.0) % MCV 78.8 L (80.0-98.0) fL MCH 25.1 L (27.0-33.0) pg MCHC 31.9 (31.0-35.0) g/dl RDW 12.8 (11.0-16.0) % Plt Count 412 H D (160-400) X10*3/uL MPV 9.4 (9.4-12.3) fL Immature Gran % (Auto) 0.5 H (0.0-0.4) % Neut % (Auto) 85.8 H (45-73) % Lymph % (Auto) 10.5 L (20-40) % [place] % (Auto) 2.8 (2-11) % Eos % (Auto) 0.1 (0-4) % Baso % (Auto) 0.3 (0-2) % Lymph # (Auto) 1.6 (1.2-4.9) X10*3/uL [place] # (Auto) 0.4 (0.1-1.2) X10*3/uL Eos # (Auto) 0.0 (0.0-0.4) X10*3/uL Baso # (Auto) 0.1 (0.0-0.2) X10*3/uL Abs Immat Gran (auto) 0.07 H (0.00-0.03) X10*3/uL Absolute Neuts (auto) 13.3 H (2.0-8.3) x10*3/uL Absolute Nucleated RBC 0.000 (0.0-0.012) X10*3/uL Nucleated RBC % (auto) 0.0 (0.0-0.2) /100WBC Sodium 138 (135-145) mmol/L Potassium 3.9 (3.3-5.1) mmol/L Chloride 106 (96-108) mmol/L Carbon Dioxide 24 (22-29) mmol/L Anion Gap 12 (12-20) BUN 11 (9-16) mg/dL Creatinine 0.74 (0.5-1.4) mg/dL Estim Creat Clear Calc 124.9 Estimated GFR > 60 Random Glucose 120 H (60-115) mg/dL Calcium 9.4 (8.4-10.2) mg/dL Magnesium 2.0 (1.6-2.6) mg/dL Total Bilirubin 0.5 (0.0-1.0) mg/dL AST 16 (5-31) U/L ALT 19 (0-31) U/L Alkaline Phosphatase 109 (39-117) U/L Total Protein 8.0 (6.5-8.0) g/dL Albumin 4.2 (3.5-5.0) g/dL Beta HCG, Quant < 2 mIU/mL Urine Color Yellow Urine Appearance Clear Urine pH 8.5 (5.0-9.0) Ur Specific [place] 1.025 (1.005-1.025) Urine Protein 30 (1+) H (Neg-Trace) mg/dL Urine Glucose (UA) Negative (Negative) mg/dL Urine Ketones Negative (Negative) mg/dL Urine Blood Negative (Negative) Urine Nitrite Negative (Negative) Ur Leukocyte Esterase Small (1+) H (Negative) Urine RBC 0-2 (0-2) /HPF Urine WBC 6-10 H (0-5) /HPF Ur Squamous Epith Cells 11-20 (0-2) /HPF Urine Bacteria 2+ (None Seen) Hyaline Casts 0-2 (0-2) /LPF Influenza Type A (PCR) NEGATIVE (Negative) Influenza Type B (PCR) NEGATIVE (Negative) RSV RNA Qual (PCR) NEGATIVE (Negative) SARS-CoV-2 RNA (RT-PCR) NEGATIVE (Negative) Independent Interpretation I performed an independent interpretation of an: Ultrasound Radiology Impression Discussion of test interpretation with radiology: I have reviewed the radiologist's reading. Radiologist Impression: [address] [id number] Ultrasound Report Signed Patient: Mel Millan MR#: [id number] : 2000 Acct:[id number] Age/Sex: 23 / F ADM Date: 12/20/23 Loc: HO.ED Attending Dr: Ordering Physician: Indira Ng Date of Service: 12/20/23 Procedure(s): US abdomen limited Accession Number(s): [id number] cc: Indira Ng; Physician,None ~ EXAMINATION: US ABDOMEN LIMITED CLINICAL INFORMATION: Right upper quadrant pain. COMPARISON: Ultrasound abdomen dated December 07, 2023. TECHNIQUE: Real-time imaging of the right upper quadrant abdominal viscera. Gallbladder and common bile duct were imaged as per request of ordering physician. FINDINGS: GALLBLADDER: The gallbladder is physiologically distended . There is a 1.4 cm calculus at the gallbladder neck. There is no gallbladder wall thickening or pericholecystic fluid. COMMON BILE DUCT: Normal in caliber measuring 0.3 cm in diameter. US/US abdomen limited IMPRESSION: Cholelithiasis. No sonographic evidence of acute cholecystitis. Electronically signed by: Baldev Wang DO 12/20/2023 09:19 PM EDT Dictated By: Baldev Wang Jr, DO Signed By: <Electronically signed by Baldev Wang Jr, in OV> 12/20/23 2119 Medications Administered Generic Name Dose Route Start Last Admin Trade Name Freq PRN Reason Stop Dose Admin Acetaminophen 1,000 mg in 100 mls @ 400 mls/hr 12/21/23 00:00 12/21/23 00:31 Ofirmev IV 12/21/23 18:14 400 mls/hr Q6H HERNÁN Administration Dextrose/Lactated Ringer's 1,000 mls @ 125 mls/hr 12/20/23 23:45 12/21/23 01:26 D5lr IVCONT 125 mls/hr .Q8H HERNÁN Administration Oxycodone HCl 5 mg 12/20/23 23:59 12/21/23 01:30 Oxycodone Hcl Immed Release 5 Mg Tablet PO 5 mg Q6H PRN Administration Pain, Moderate(Pain Scale 4-6) Discharge Plan Discharge Clinical Impression: Gallstone (impacted) Patient Disposition: Admitted As Inpatient
[2023-12-21] VITALS (10 sets, daily range): BP systolic 103–125; BP diastolic 66–86; PULSE 53–85; RESP 12–18; TEMP 36.1–36.5; O2SAT 96–99
--- NOTE | 2023-12-21 00:18 | PC.NURSE ---
Per ER MD Haynes, no BCX/lactic needed despite elevated WBC count and cholecystitis.
[2023-12-21] MEDS: Acetaminophen 1,000 MG/100 ML PIGGYBACK 400 MG IV ×4 (00:31→17:52)
[2023-12-21] MEDS: Dextrose 5 % and Lactated Ring 1,000 ML 125 ML IVCONT ×2 (01:26→10:05)
[2023-12-21] MEDS: oxyCODONE HCl Immed Release 5 MG TABLET PO ×2 (01:30→15:37)
--- NOTE | 2023-12-21 01:32 | PC.NURSE ---
IV fluid administered per orders. Pt c/o 08/22 pain in abdomen, medicated with PRN oxycodone per JUN.
[2023-12-21 06:31] LABS: MANUAL DIFF FLAG NO
[2023-12-21 06:53] LABS: Basophils Percent Auto 0.3 % (0-2); Eosinophils Percent Auto 0.3 % (0-4); Hematocrit 41.2 % (37.0-47.0); Hemoglobin 13.1 g/dl (12.0-16.0); Imm Gran Abs Auto 0.08 X10*3/uL (0.00-0.03); Imm Gran Pct Auto 0.5 % (0.0-0.4); Mean Corpuscular HGB Conc 31.8 g/dl (31.0-35.0); Mean Corpuscular Hemoglobin 25.1 pg (27.0-33.0); Mean Corpuscular Volume 78.9 fL (80.0-98.0); Mean Platelet Volume 10.1 fL (9.4-12.3); Monocytes Percent Auto 6.3 % (2-11); Neutrophils Absolute Auto 11.6 x10*3/uL (2.0-8.3); Neutrophils Percent Auto 73.6 % (45-73); Platelet Count 393 X10*3/uL (160-400); Red Blood Count 5.22 X10*6/uL (4.20-5.50); Red Cell Distribution Width 12.7 % (11.0-16.0); White Blood Count 15.8 X10*3/uL (4.8-10.8)
--- NOTE | 2023-12-21 07:45 | PM.HPGS ---
History of Present Illness History of Present Illness Date of Service: 12/21/23 Chief complaint: Acute cholecystitis Narrative: Mel Millan is a 23 year old female presenting with complaints of right upper quadrant abdominal pain which began yesterday evening. She reports previous episodes of similar pain which occurred during her but resolved spontaneously. The current episode is worst episode she has experienced. She reports the pain at 10/10. The pain is mainly in the right upper quadrant with radiation to the back and was associated with nausea and vomiting. She denies fever, chills, diarrhea or constipation. She has 1.5 months with her 2nd child. Workup in the emergency department revealed an elevated WBC of 15.5 and ultrasound of the abdomen revealed a gallstone in the neck of the gallbladder with a physiologically distended gallbladder. No wall thickening or pericholecystic fluid is identified. The common bile duct is normal as well. This morning her abdominal pain is somewhat improved but remains in the 3-4 out of 10 level. She denies any further nausea or vomiting. Review of Systems Review of Systems: Yes all other systems are reviewed and are negative Constitutional: Constitutional: Denies chills, Denies fever(s), Denies headache(s), Reports poor appetite and Denies weakness ENT: Denies headache(s) Cardiovascular: Cardiovascular: Denies chest pain, Denies irregular heart rhythm, Denies palpitations and Denies dyspnea Respiratory: Respiratory: Denies cough, Denies excessive phlegm production and Denies dyspnea Gastrointestinal: Gastrointestinal: Reports abdominal pain, Denies bloating, Denies change in bowel habits, Denies constipation, Denies heartburn, Denies diarrhea, Reports nausea and Reports vomiting Genitourinary: Genitourinary: Denies urinary frequency Musculoskeletal: Musculoskeletal: Denies back pain, Denies muscle weakness and Denies numbness Integumentary/Breasts: Skin/Breast: Denies changing lesions and Denies unusual bruising Neurologic: Denies headache(s), Denies numbness, Denies paresthesias and Denies weakness Psychiatric: Psychiatric: Denies anxiety and Denies depression Endocrine: Endocrine: Denies palpitations Hematologic/Lymphatic: Hematologic/Lymphatic: Denies lymphadenopathy PMFSH Social History Social History Household Members: Family Housing: House Do you presently have visiting nurse or other home services: No Alcohol intake: never Patient Tobacco Use Status: Never used Tobacco Smoked in Last 30 Days: No Use of substances other than those prescribed or required for medical reasons: No Currently Displaying Signs/Symptoms of Drug Intoxication Withdrawal: No Have you been hit, kicked, punched, or otherwise hurt by someone within the past year? If so, by whom?: No Do you feel safe in your current relationship?: No Current Relationship Is there a partner from a previous relationship who is making you feel unsafe now?: No Are you made to feel afraid or neglected: No Advance Directives: No Advance Directives Information Provided: No Do you have a plan to hurt others: No Plan Recently lost weight without trying: No Eating poorly because of decreased appetite: No Nutrition Risks: No Nutritional Risk Patient : No : No Poor oral hygiene: No Meds Allergies Allergy/AdvReac Type Severity Reaction Status Date / Time No Known Allergies Allergy Verified 12/20/23 20:13 Active Medications: Current Medications Calcium Carbonate (Calcium Carbonate 750 Mg Tab.Chew) 750 mg PO Q4H PRN PRN Reason: Heartburn Hydromorphone HCl (Hydromorphone Hcl 0.5 Mg/0.5 Ml Syringe) 0.5 mg IVPUSH Q3H PRN; Protocol PRN Reason: Pain, Severe (Pain Scale 7-10) Acetaminophen (Ofirmev) 1,000 mg in 100 mls @ 400 mls/hr IV Q6H [facility] Stop: 12/21/23 18:14 Last Infusion: 12/21/23 06:25 Dose: Infused Dextrose/Lactated Ringer's (D5lr) 1,000 mls @ 125 mls/hr IVCONT .Q8H [facility] Last Admin: 12/21/23 07:09 Dose: Not Given Piperacillin Sod/Tazobactam (Sod 3.375 gm/ Sodium Chloride) 50 mls @ 100 mls/hr IV Q6H [facility] Magnesium Hydroxide (Milk Of Magnesia 30 Ml Oral.Susp) 30 ml PO DAILY PRN PRN Reason: Constipation Ondansetron HCl (Ondansetron Hcl 4 Mg/2 Ml Vial) 4 mg IVPUSH QID PRN PRN Reason: Nausea Oxycodone HCl (Oxycodone Hcl Immed Release 5 Mg Tablet) 5 mg PO Q6H PRN PRN Reason: Pain, Moderate(Pain Scale 4-6) Last Admin: 12/21/23 01:30 Dose: 5 mg Zolpidem Tartrate (Zolpidem Tartrate 5 Mg Tablet) 5 mg PO BEDTIME PRN PRN Reason: Insomnia Home Medications ?Medication ?Instructions ?Recorded ?Confirmed ?Last Taken ?Type No Known Home Meds 12/21/23 12/21/23 Unknown History Physical Exam Vital Signs: Vital Signs: Last Vital Signs Temp 97.4 F 12/21/23 03:05 Pulse 64 12/21/23 03:05 Resp 16 12/21/23 03:05 BP 125/86 12/21/23 03:05 Pulse Ox 97 12/21/23 03:05 O2 Del Method Room Air 12/21/23 03:05 BMI result Body Mass Index 32.8 Const: General: cooperative and no acute distress Nutritional Appearance: well nourished Orientation/consciousness: patient oriented x3 Limitations: no limitations HEENT: Head: Yes normocephalic and Yes atraumatic Ears: hearing grossly normal bilaterally Resp: Effort & Inspection: normal respiratory effort, no audible wheezes, no cough and no respiratory distress Cardio: Jugular venous distension: no JVD GI: Inspection: Yes normal to inspection Palpation (GI): Soft to palpation, Tenderness to palpation present (GI) in the RUQ and Farnsworth's sign positive, no guarding, not rigid and No hepatosplenomegaly present Percussion: Yes normal to percussion Auscultation: normal bowel sounds Rectal Exam - Female: deferred Skin: Other: Warm, dry, no rash, normal color. Neuro: General: patient oriented x3 Extrem: General: Yes no clubbing, cyanosis or edema Results Results Labs: Short CBC 12/20/23 12/21/23 Range/Units 20:29 05:16 WBC 15.5 H 15.8 H (4.8-10.8) X10*3/uL Hgb 13.0 13.1 (12.0-16.0) g/dl Hct 40.8 41.2 (37.0-47.0) % Plt Count 412 H D 393 (160-400) X10*3/uL BMP 12/20/23 20:29 Sodium 138 Potassium 3.9 Chloride 106 Carbon Dioxide 24 BUN 11 Creatinine 0.74 Calcium 9.4 Liver Function 12/20/23 Range/Units 20:29 Total Bilirubin 0.5 (0.0-1.0) mg/dL AST 16 (5-31) U/L ALT 19 (0-31) U/L Alkaline Phosphatase 109 (39-117) U/L Albumin 4.2 (3.5-5.0) g/dL Urine 12/20/23 Range/Units 20:29 Urine Color Yellow Urine Appearance Clear Urine pH 8.5 (5.0-9.0) Ur Specific [place] 1.025 (1.005-1.025) Urine Protein 30 (1+) H (Neg-Trace) mg/dL Urine Glucose (UA) Negative (Negative) mg/dL Additional studies: Ultrasound of abdomen: Assessment and Plan (1) Symptomatic cholelithiasis: Status: Acute (2) Gallstone (impacted): Status: Acute Plan 23-year-old female patient presenting with a recurrent episode of abdominal pain in the right upper quadrant found to have an impacted gallstone at the neck of the gallbladder with a positive sonographic Farnsworth sign documented by the lead rider. Findings are consistent with symptomatic cholelithiasis possible early cholecystitis. This morning the patient feels moderately improved but he continued to have abdominal pain. Options are continued bowel rest verses proceeding to a laparoscopic cholecystectomy. After discussion of the procedure, risks and alternatives, the patient has consented to a laparoscopic or possible open cholecystectomy. She has been added onto the operative schedule for later today. Quality Stroke Does the patient have a stroke diagnosis?: No VTE Prior VTE?: No VTE Risk Level:: Surgical - low VTE Device Contraindication: N/A - Device Ordered VTE Drug Contraindication: Treatment Not Indicated Procedures Date of Service Date of Service: 12/21/23
--- NOTE | 2023-12-21 07:54 | PHA.MEDREC ---
Pharmacy Consult ? Medication Reconciliation Pharmacy reviewed completed the medication reconciliation. Rn confirmed patient to be on no known home medications. Confirmed this against claims.
[2023-12-21] MEDS: Piperacillin Sodium/Tazobactam 3.375 GM in 0.9 % Sodium Chloride 50 ML IV (08:18)
--- NOTE | 2023-12-21 10:19 | HO.ANESPROP2 ---
[facility] Active Problems Active Problems: All Active Problems Symptomatic cholelithiasis (Acute) Gallstone (impacted) (Acute) Past Medical History Functional capacity: independent ambulation Patient : No Family History Family history of problems with anesthesia: No Surgical History History of Problems with Anesthesia: No Social History Social History Household Members: Family Housing: House Do you presently have visiting nurse or other home services: No Alcohol intake: never Patient Tobacco Use Status: Never used Tobacco Smoked in Last 30 Days: No Use of substances other than those prescribed or required for medical reasons: No Currently Displaying Signs/Symptoms of Drug Intoxication Withdrawal: No Have you been hit, kicked, punched, or otherwise hurt by someone within the past year? If so, by whom?: No Do you feel safe in your current relationship?: No Current Relationship Is there a partner from a previous relationship who is making you feel unsafe now?: No Are you made to feel afraid or neglected: No Advance Directives: No Advance Directives Information Provided: No Do you have a plan to hurt others: No Plan Recently lost weight without trying: No Eating poorly because of decreased appetite: No Nutrition Risks: No Nutritional Risk Patient : No : No Poor oral hygiene: No Meds Allergies Allergy/AdvReac Type Severity Reaction Status Date / Time No Known Allergies Allergy Verified 12/20/23 20:13 Active Medications: Current Medications Calcium Carbonate (Calcium Carbonate 750 Mg Tab.Chew) 750 mg PO Q4H PRN PRN Reason: Heartburn Hydromorphone HCl (Hydromorphone Hcl 0.5 Mg/0.5 Ml Syringe) 0.5 mg IVPUSH Q3H PRN; Protocol PRN Reason: Pain, Severe (Pain Scale 7-10) Acetaminophen (Ofirmev) 1,000 mg in 100 mls @ 400 mls/hr IV Q6H [facility] Stop: 12/21/23 18:14 Last Infusion: 12/21/23 06:25 Dose: Infused Dextrose/Lactated Ringer's (D5lr) 1,000 mls @ 125 mls/hr IVCONT .Q8H H[facility] Last Admin: 12/21/23 10:05 Dose: 125 mls/hr Piperacillin Sod/Tazobactam (Sod 3.375 gm/ Sodium Chloride) 50 mls @ 100 mls/hr IV Q6H [facility] Last Infusion: 12/21/23 09:18 Dose: Infused Magnesium Hydroxide (Milk Of Magnesia 30 Ml Oral.Susp) 30 ml PO DAILY PRN PRN Reason: Constipation Ondansetron HCl (Ondansetron Hcl 4 Mg/2 Ml Vial) 4 mg IVPUSH QID PRN PRN Reason: Nausea Oxycodone HCl (Oxycodone Hcl Immed Release 5 Mg Tablet) 5 mg PO Q6H PRN PRN Reason: Pain, Moderate(Pain Scale 4-6) Last Admin: 12/21/23 01:30 Dose: 5 mg Zolpidem Tartrate (Zolpidem Tartrate 5 Mg Tablet) 5 mg PO BEDTIME PRN PRN Reason: Insomnia Home Medications ?Medication ?Instructions ?Recorded ?Confirmed ?Last Taken ?Type No Known Home Meds 12/21/23 12/21/23 Unknown History Exam Height,Weight and Vital Signs: Height 5 ft 4 in Weight 86.636 kg Last Vital Signs Temp 97.2 F 12/21/23 07:48 Pulse 64 12/21/23 07:48 Resp 18 12/21/23 07:48 BP 117/78 12/21/23 07:48 Pulse Ox 99 12/21/23 07:48 O2 Del Method Room Air 12/21/23 07:48 Pertinent Lab Results Pertinent Lab Results: Laboratory Tests 12/20/23 12/21/23 20:29 05:16 WBC 15.5 H 15.8 H RBC 5.18 5.22 Hgb 13.0 13.1 Hct 40.8 41.2 MCV 78.8 L 78.9 L MCH 25.1 L 25.1 L MCHC 31.9 31.8 RDW 12.8 12.7 Plt Count 412 H D 393 MPV 9.4 10.1 Immature Gran % (Auto) 0.5 H 0.5 H Neut % (Auto) 85.8 H 73.6 H Lymph % (Auto) 10.5 L 19.0 L [place] % (Auto) 2.8 6.3 Eos % (Auto) 0.1 0.3 Baso % (Auto) 0.3 0.3 Lymph # (Auto) 1.6 3.0 [place] # (Auto) 0.4 1.0 Eos # (Auto) 0.0 0.0 Baso # (Auto) 0.1 0.0 Abs Immat Gran (auto) 0.07 H 0.08 H Absolute Neuts (auto) 13.3 H 11.6 H Absolute Nucleated RBC 0.000 0.000 Nucleated RBC % (auto) 0.0 0.0 Sodium 138 Potassium 3.9 Chloride 106 Carbon Dioxide 24 Anion Gap 12 BUN 11 Creatinine 0.74 Estim Creat Clear Calc 124.9 Estimated GFR > 60 Random Glucose 120 H Calcium 9.4 Magnesium 2.0 Total Bilirubin 0.5 AST 16 ALT 19 Alkaline Phosphatase 109 Total Protein 8.0 Albumin 4.2 Beta HCG, Quant < 2 Urine Color Yellow Urine Appearance Clear Urine pH 8.5 Ur Specific [place] 1.025 Urine Protein 30 (1+) H Urine Glucose (UA) Negative Urine Ketones Negative Urine Blood Negative Urine Nitrite Negative Ur Leukocyte Esterase Small (1+) H Urine RBC 0-2 Urine WBC 6-10 H Ur Squamous Epith Cells 11-20 Urine Bacteria 2+ Hyaline Casts 0-2 Influenza Type A (PCR) NEGATIVE Influenza Type B (PCR) NEGATIVE RSV RNA Qual (PCR) NEGATIVE SARS-CoV-2 RNA (RT-PCR) NEGATIVE Assessment and Plan Final Anesthetic Review Family History of Problems with Anesthesia: No History of Problems with Anesthesia: No
--- NOTE | 2023-12-21 11:52 | HO.ANESPROP2 ---
[facility] Active Problems Active Problems: All Active Problems Symptomatic cholelithiasis (Acute) Gallstone (impacted) (Acute) Past Medical History Functional capacity: independent ambulation Family History Family history of problems with anesthesia: No Surgical History History of Problems with Anesthesia: No Social History Social History Household Members: Family Housing: House Do you presently have visiting nurse or other home services: No Alcohol intake: never Patient Tobacco Use Status: Never used Tobacco Smoked in Last 30 Days: No Use of substances other than those prescribed or required for medical reasons: No Currently Displaying Signs/Symptoms of Drug Intoxication Withdrawal: No Have you been hit, kicked, punched, or otherwise hurt by someone within the past year? If so, by whom?: No Do you feel safe in your current relationship?: No Current Relationship Is there a partner from a previous relationship who is making you feel unsafe now?: No Are you made to feel afraid or neglected: No Advance Directives: No Advance Directives Information Provided: No Do you have a plan to hurt others: No Plan Recently lost weight without trying: No Eating poorly because of decreased appetite: No Nutrition Risks: No Nutritional Risk Patient : No : No Poor oral hygiene: No Meds Allergies Allergy/AdvReac Type Severity Reaction Status Date / Time No Known Allergies Allergy Verified 12/20/23 20:13 Active Medications: Current Medications Calcium Carbonate (Calcium Carbonate 750 Mg Tab.Chew) 750 mg PO Q4H PRN PRN Reason: Heartburn Hydromorphone HCl (Hydromorphone Hcl 0.5 Mg/0.5 Ml Syringe) 0.5 mg IVPUSH Q3H PRN; Protocol PRN Reason: Pain, Severe (Pain Scale 7-10) Acetaminophen (Ofirmev) 1,000 mg in 100 mls @ 400 mls/hr IV Q6H [facility] Stop: 12/21/23 18:14 Last Infusion: 12/21/23 11:23 Dose: Infused Dextrose/Lactated Ringer's (D5lr) 1,000 mls @ 80 mls/hr IVCONT .[id number] [facility] Last Infusion: 12/21/23 11:39 Dose: 0 mls/hr Piperacillin Sod/Tazobactam (Sod 3.375 gm/ Sodium Chloride) 50 mls @ 100 mls/hr IV Q6H [facility] Last Infusion: 12/21/23 09:18 Dose: Infused Magnesium Hydroxide (Milk Of Magnesia 30 Ml Oral.Susp) 30 ml PO DAILY PRN PRN Reason: Constipation Ondansetron HCl (Ondansetron Hcl 4 Mg/2 Ml Vial) 4 mg IVPUSH QID PRN PRN Reason: Nausea Oxycodone HCl (Oxycodone Hcl Immed Release 5 Mg Tablet) 5 mg PO Q6H PRN PRN Reason: Pain, Moderate(Pain Scale 4-6) Last Admin: 12/21/23 01:30 Dose: 5 mg Zolpidem Tartrate (Zolpidem Tartrate 5 Mg Tablet) 5 mg PO BEDTIME PRN PRN Reason: Insomnia Home Medications ?Medication ?Instructions ?Recorded ?Confirmed ?Last Taken ?Type No Known Home Meds 12/21/23 12/21/23 Unknown History Exam Height,Weight and Vital Signs: Height 5 ft 4 in Weight 86.636 kg Last Vital Signs Temp 97.2 F 12/21/23 07:48 Pulse 64 12/21/23 07:48 Resp 18 12/21/23 07:48 BP 117/78 12/21/23 07:48 Pulse Ox 99 12/21/23 07:48 O2 Del Method Room Air 12/21/23 07:48 Pertinent Lab Results Pertinent Lab Results: Laboratory Tests 12/20/23 12/21/23 20:29 05:16 WBC 15.5 H 15.8 H RBC 5.18 5.22 Hgb 13.0 13.1 Hct 40.8 41.2 MCV 78.8 L 78.9 L MCH 25.1 L 25.1 L MCHC 31.9 31.8 RDW 12.8 12.7 Plt Count 412 H D 393 MPV 9.4 10.1 Immature Gran % (Auto) 0.5 H 0.5 H Neut % (Auto) 85.8 H 73.6 H Lymph % (Auto) 10.5 L 19.0 L [place] % (Auto) 2.8 6.3 Eos % (Auto) 0.1 0.3 Baso % (Auto) 0.3 0.3 Lymph # (Auto) 1.6 3.0 [place] # (Auto) 0.4 1.0 Eos # (Auto) 0.0 0.0 Baso # (Auto) 0.1 0.0 Abs Immat Gran (auto) 0.07 H 0.08 H Absolute Neuts (auto) 13.3 H 11.6 H Absolute Nucleated RBC 0.000 0.000 Nucleated RBC % (auto) 0.0 0.0 Sodium 138 Potassium 3.9 Chloride 106 Carbon Dioxide 24 Anion Gap 12 BUN 11 Creatinine 0.74 Estim Creat Clear Calc 124.9 Estimated GFR > 60 Random Glucose 120 H Calcium 9.4 Magnesium 2.0 Total Bilirubin 0.5 AST 16 ALT 19 Alkaline Phosphatase 109 Total Protein 8.0 Albumin 4.2 Beta HCG, Quant < 2 Urine Color Yellow Urine Appearance Clear Urine pH 8.5 Ur Specific [place] 1.025 Urine Protein 30 (1+) H Urine Glucose (UA) Negative Urine Ketones Negative Urine Blood Negative Urine Nitrite Negative Ur Leukocyte Esterase Small (1+) H Urine RBC 0-2 Urine WBC 6-10 H Ur Squamous Epith Cells 11-20 Urine Bacteria 2+ Hyaline Casts 0-2 Influenza Type A (PCR) NEGATIVE Influenza Type B (PCR) NEGATIVE RSV RNA Qual (PCR) NEGATIVE SARS-CoV-2 RNA (RT-PCR) NEGATIVE Airway Mallampati Class: II TM Dist: >3cm Neck ROM: Full Heart: RRR Lungs: CTA Assessment and Plan Assessment Anesthesia Assessment: Anesthesia Plan Discussed and Chart Reviewed Final Anesthetic Review Family History of Problems with Anesthesia: No History of Problems with Anesthesia: No NPO: Yes ASA Class: II and Emergency Final Preanesthetic Review: Meds/Allgs Chart Reviewed, Consent Obtained/Reviewed and Anes Risks/Benef Reviewed Patient Risk: Intermediate Procedure Risk: Intermediate Anesthetic Plan Anesthetic Plan: GA Disposition: Standard PACU
--- NOTE | 2023-12-21 11:54 | HO.ANESPROP2 ---
[facility] Active Problems Active Problems: All Active Problems Symptomatic cholelithiasis (Acute) Gallstone (impacted) (Acute) Past Medical History Functional capacity: independent ambulation Family History Family history of problems with anesthesia: No Surgical History History of Problems with Anesthesia: No Social History Social History Household Members: Family Housing: House Do you presently have visiting nurse or other home services: No Alcohol intake: never Patient Tobacco Use Status: Never used Tobacco Smoked in Last 30 Days: No Use of substances other than those prescribed or required for medical reasons: No Currently Displaying Signs/Symptoms of Drug Intoxication Withdrawal: No Have you been hit, kicked, punched, or otherwise hurt by someone within the past year? If so, by whom?: No Do you feel safe in your current relationship?: No Current Relationship Is there a partner from a previous relationship who is making you feel unsafe now?: No Are you made to feel afraid or neglected: No Advance Directives: No Advance Directives Information Provided: No Do you have a plan to hurt others: No Plan Recently lost weight without trying: No Eating poorly because of decreased appetite: No Nutrition Risks: No Nutritional Risk Patient : No : No Poor oral hygiene: No Meds Allergies Allergy/AdvReac Type Severity Reaction Status Date / Time No Known Allergies Allergy Verified 12/20/23 20:13 Active Medications: Current Medications Calcium Carbonate (Calcium Carbonate 750 Mg Tab.Chew) 750 mg PO Q4H PRN PRN Reason: Heartburn Hydromorphone HCl (Hydromorphone Hcl 0.5 Mg/0.5 Ml Syringe) 0.5 mg IVPUSH Q3H PRN; Protocol PRN Reason: Pain, Severe (Pain Scale 7-10) Acetaminophen (Ofirmev) 1,000 mg in 100 mls @ 400 mls/hr IV Q6H [facility] Stop: 12/21/23 18:14 Last Infusion: 12/21/23 11:23 Dose: Infused Dextrose/Lactated Ringer's (D5lr) 1,000 mls @ 80 mls/hr IVCONT .[id number] [facility] Last Infusion: 12/21/23 11:39 Dose: 0 mls/hr Piperacillin Sod/Tazobactam (Sod 3.375 gm/ Sodium Chloride) 50 mls @ 100 mls/hr IV Q6H [facility] Last Infusion: 12/21/23 09:18 Dose: Infused Magnesium Hydroxide (Milk Of Magnesia 30 Ml Oral.Susp) 30 ml PO DAILY PRN PRN Reason: Constipation Ondansetron HCl (Ondansetron Hcl 4 Mg/2 Ml Vial) 4 mg IVPUSH QID PRN PRN Reason: Nausea Oxycodone HCl (Oxycodone Hcl Immed Release 5 Mg Tablet) 5 mg PO Q6H PRN PRN Reason: Pain, Moderate(Pain Scale 4-6) Last Admin: 12/21/23 01:30 Dose: 5 mg Zolpidem Tartrate (Zolpidem Tartrate 5 Mg Tablet) 5 mg PO BEDTIME PRN PRN Reason: Insomnia Home Medications ?Medication ?Instructions ?Recorded ?Confirmed ?Last Taken ?Type No Known Home Meds 12/21/23 12/21/23 Unknown History Exam Height,Weight and Vital Signs: Height 5 ft 4 in Weight 86.636 kg Last Vital Signs Temp 97.2 F 12/21/23 07:48 Pulse 64 12/21/23 07:48 Resp 18 12/21/23 07:48 BP 117/78 12/21/23 07:48 Pulse Ox 99 12/21/23 07:48 O2 Del Method Room Air 12/21/23 07:48 Pertinent Lab Results Pertinent Lab Results: Laboratory Tests 12/20/23 12/21/23 20:29 05:16 WBC 15.5 H 15.8 H RBC 5.18 5.22 Hgb 13.0 13.1 Hct 40.8 41.2 MCV 78.8 L 78.9 L MCH 25.1 L 25.1 L MCHC 31.9 31.8 RDW 12.8 12.7 Plt Count 412 H D 393 MPV 9.4 10.1 Immature Gran % (Auto) 0.5 H 0.5 H Neut % (Auto) 85.8 H 73.6 H Lymph % (Auto) 10.5 L 19.0 L [place] % (Auto) 2.8 6.3 Eos % (Auto) 0.1 0.3 Baso % (Auto) 0.3 0.3 Lymph # (Auto) 1.6 3.0 [place] # (Auto) 0.4 1.0 Eos # (Auto) 0.0 0.0 Baso # (Auto) 0.1 0.0 Abs Immat Gran (auto) 0.07 H 0.08 H Absolute Neuts (auto) 13.3 H 11.6 H Absolute Nucleated RBC 0.000 0.000 Nucleated RBC % (auto) 0.0 0.0 Sodium 138 Potassium 3.9 Chloride 106 Carbon Dioxide 24 Anion Gap 12 BUN 11 Creatinine 0.74 Estim Creat Clear Calc 124.9 Estimated GFR > 60 Random Glucose 120 H Calcium 9.4 Magnesium 2.0 Total Bilirubin 0.5 AST 16 ALT 19 Alkaline Phosphatase 109 Total Protein 8.0 Albumin 4.2 Beta HCG, Quant < 2 Urine Color Yellow Urine Appearance Clear Urine pH 8.5 Ur Specific [place] 1.025 Urine Protein 30 (1+) H Urine Glucose (UA) Negative Urine Ketones Negative Urine Blood Negative Urine Nitrite Negative Ur Leukocyte Esterase Small (1+) H Urine RBC 0-2 Urine WBC 6-10 H Ur Squamous Epith Cells 11-20 Urine Bacteria 2+ Hyaline Casts 0-2 Influenza Type A (PCR) NEGATIVE Influenza Type B (PCR) NEGATIVE RSV RNA Qual (PCR) NEGATIVE SARS-CoV-2 RNA (RT-PCR) NEGATIVE Assessment and Plan Assessment Anesthesia Assessment: Anesthesia Plan Discussed and Chart Reviewed Final Anesthetic Review Family History of Problems with Anesthesia: No History of Problems with Anesthesia: No NPO: Yes ASA Class: II and Emergency Final Preanesthetic Review: Meds/Allgs Chart Reviewed and Anes Risks/Benef Reviewed Patient Risk: Intermediate Procedure Risk: Intermediate Anesthetic Plan Anesthetic Plan: GA Disposition: Standard PACU
--- NOTE | 2023-12-21 12:53 | W.PM.OPN ---
Operative Note Operative Note Date of Service: 12/21/23 Narrative: Preoperative diagnosis: Symptomatic cholelithiasis Postoperative diagnosis: Acute cholecystitis due to cholelithiasis Procedure: Laparoscopic cholecystectomy Surgeon: Rashad Forde MD Commanding Officer Homicide Squad: FLOYD Castro Anesthesia: General endotracheal Indications for procedure: 23-year-old female patient presenting with acute onset of abdominal pain in the right upper quadrant found to have a gallstone on ultrasound of the neck of the gallbladder without wall thickening or pericholecystic fluid. Patient was admitted for symptomatic cholelithiasis and presents now for laparoscopic cholecystectomy. Operative findings: Markedly distended gallbladder with hydropic fluid. The wall of the gallbladder was very edematous consistent with acute cholecystitis. Specimen: gallbladder Estimated blood loss: 2 mL Complications: None Procedure details: Patient was brought to the OR and placed in a supine position. After administering general anesthesia the patient's abdomen was prepped with ChloraPrep and draped in a sterile fashion. A surgical time-out was called the consent confirmed. Patient received preoperative antibiotics and Venodyne boots were in place. Local anesthesia consisting of 0.5% Sensorcaine without epinephrine was infiltrated in a periumbilical region. A 5 mm incision was made above the umbilicus in a transverse fashion. The Veress needle was then inserted while elevating abdominal cavity with towel clips. After positive drop test the abdomen was insufflated to a pressure of 15 mm of mercury. The Veress needle was then removed and a 5 mm trocar inserted. The camera was inserted in the abdomen explored. A 12 mm trocar was then placed in the epigastrium. Two 5 mm trocars placed in the right upper quadrant by the assistant project engineer. The patient was placed in reverse Trendelenburg positioning and rotated to the left. The gallbladder was markedly distended and required drainage using a laparoscopic needle. Drop fluid was drained from the gallbladder. The gallbladder was grasped with the fundus and retracted cephalad by the assistant project engineer. The infundibulum was then grasped and retracted away from the liver bed, also by the assistant project engineer. The Dolphin dissected was then used by the surgeon to dissect the peritoneum off the infundibulum to reveal the junction with the cystic duct. Cystic artery was noted slightly medial and posterior to the cystic duct. After obtaining a critical view the cystic duct was doubly clipped and divided. The cystic artery was then doubly clipped and divided. The gallbladder was then dissected off the liver bed using electrocautery with an L hook. Hemostasis was assured all times using the electrocautery. When the gallbladder is completely dissected off the liver bed was placed in an Endo-Catch bag and brought out through the epigastric incision. The gallbladder was sent to pathology for further examination. The abdomen was then re-examined. The liver bed was irrigated and suctioned dry. No bleeding or bile leak could be identified. CO2 was then evacuated and all trocars removed. Fascia was closed at the epigastric incision using a [id number] 0 Polysorb suture. Skin was closed in all incisions using a subcuticular 4 0 Polysorb suture by both the surgeon and assistant project engineer. Sterile dressings consisting of Steri-Strips, 2 x 2 gauze, and Tegaderm were then applied. The patient tolerated the procedure well. Sponge instrument and needle counts reported as correct. The patient was transferred to PACU in stable condition.
--- NOTE | 2023-12-21 15:23 | MHC.CM.PN ---
PT REPORTS SHE LIVES WITH HER S/O AND IS INDEPENDENT WITH CARE SHE HAS NO DME AND NO SERVICES SHE SAYS SHE HAS A HCP ON FILE AT [facility], CM UNABLE TO REACH MEDICAL RECORDS THERE FOR A COPY DUE TO IT BEING A WEEKEND PT DOES NOT HAVE A PCP, SHE HAS REQUESTED AN APPT AT [facility] IF POSSIBLE DCP: HOME NO SERVICES VIA PRIVATE TRANSPORT
[2023-12-22] MEDS: Dextrose 5 % and Lactated Ring 1,000 ML 80 ML IVCONT (00:58)
[2023-12-22 03:42] VITALS: BP 106/58; PULSE 69; RESP 14; TEMP 36.6; O2SAT 98
[2023-12-22 08:25] VITALS: BP 110/62; PULSE 71; RESP 18; TEMP 37.1; O2SAT 97
--- NOTE | 2023-12-22 08:38 | PM.DS ---
DS: Providers Provider Date of Service: 12/22/23 Date of admission: 12/21/23 00:05 Date of discharge: 12/22/23 Primary care physician: Guera Physician Admitting clinician: Rashad Forde Discharging clinician: Rashad Forde DS: Diagnosis Discharge Diagnosis (1) Symptomatic cholelithiasis: Status: Acute (2) Gallstone (impacted): Status: Acute DS: Summary Hospital Course Hospital Course: Mel Millan is a 23 year old female presenting with complaints of right upper quadrant abdominal pain which began Saturday evening. She reports previous episodes of similar pain which occurred during her but resolved spontaneously. The current episode is worst episode she has experienced. She reports the pain at 10/10. The pain is mainly in the right upper quadrant with radiation to the back and was associated with nausea and vomiting. She denies fever, chills, diarrhea or constipation. She has 1.5 months with her 2nd child. Workup in the emergency department revealed an elevated WBC of 15.5 and ultrasound of the abdomen revealed a gallstone in the neck of the gallbladder with a physiologically distended gallbladder. No wall thickening or pericholecystic fluid is identified. The common bile duct is normal as well. This morning her abdominal pain is somewhat improved but remains in the 3-4 out of 10 level. She denies any further nausea or vomiting. She was taken to the OR on 12/21/2023 for laparoscopic cholecystectomy. Operative findings were consistent with acute cholecystitis with hydropic changes. A large gallstone was impacted on the neck of the gallbladder completely obstructing the cystic duct. She tolerated the procedure well. She was started on a regular diet postoperatively and tolerated this well. This morning she feels much improved with decreased abdominal pain. She denies any nausea or vomiting. Patient is to be discharged to home today. She was instructed to avoid lifting greater than 10 lb for the next 2 weeks. She should also remain on a low-fat diet for the next 4 weeks. I have asked her to return to the office in next 1-2 weeks for wound examination. She was given a prescription for oxycodone as needed for pain. She should return for fever, chills, nausea, vomiting, or increased abdominal pain. Time spent discussing smoking cessation with patient: 3 to 10 minutes Status at Discharge Functional status at discharge: independent ambulation Overall status at discharge: patient is progressing back to baseline Time Attestation Discharge Coordination Time (in mins): 25 Quality: Safe Use of Opioids Does Pt have an Active Cancer Diagnosis on the Problem List?: No Quality: Stroke Does the patient have a stroke diagnosis?: No Physical Exam Vital Signs: Vital Signs: Last Vital Signs Temp 98.8 F 12/22/23 08:25 Pulse 71 12/22/23 08:25 Resp 18 12/22/23 08:25 BP 110/62 12/22/23 08:25 Pulse Ox 97 12/22/23 08:25 O2 Del Method Room Air 12/22/23 08:25 BMI result Body Mass Index 32.8 Const: General: no acute distress Resp: Effort & Inspection: normal respiratory effort GI: Other: Trocar sites are clean, dry, and intact without redness or discharge Inspection: Yes normal to inspection Palpation (GI): Soft to palpation Percussion: Yes normal to percussion Skin: General skin exam: no rashes or lesions noted Extrem: General: No edema DS: Data Data Completed and Pending Pending studies at discharge: Pending at discharge 12/21/23 12:38 Surgical [PTH] Routine Labs on day of discharge: Preliminary micro results at discharge 12/20/23 20:29 Urine Culture - Preliminary Urine clean catch - Clean Catch Midstream No growth to date. Discharge Plan Discharge Anticipated Discharge Date/Time: 12/22/23 05:46 Patient Disposition: Home, Self-Care Discharge Diagnosis: Acute cholecystitis, cholelithiasis Referrals: Rashad Forde MD [Physician] - 2 Weeks Physician,None [Primary Care Provider] - 1 Week Discharge Medications: New oxycodone 5 mg tablet 5 mg PO Q6H PRN (Reason: pain (scale score 7-10)) Qty: 15 0RF Rx Instructions: Partial Fill upon patient request. Discharge Orders: Discharge Order (Routine); Ordered 12/22/23 Ordered By: Rashad Forde Diet: Low fat, low cholesterol Activity on Discharge: No heavy lifting Stand Alone Forms: Patient Portal Discharge page, Work/School Release Print Language: Moldovan Activity Restrictions/Additional Instructions: No lifting > 10 pounds for 2 weeks Stay on low fat diet for 1 month No driving for one week Ice to the incision x 24 hours After 24 hours, use warm compress or heating pad on low as needed Take Tylenol Extra-strength 1-2 tabs every 6 hours as needed Oxycodone every 6-8 hours as needed for pain Colace 100 mg every day as needed for constipation Remove dressing in 3 days Follow up in office in one week (call office at [phone] for appointment). Care Plan Goals: Return to normal activity and diet Health Concerns: Abdominal pain right upper abdomen Plan of Treatment: Laparoscopic cholecystectomy 12/21/2023 Assessment: Acute cholecystitis, cholelithiasis
--- NOTE | 2023-12-22 08:42 | MHC.CM.PN ---
PLAN IS FOR DC HOME TODAY - SELF CARE. RN AWARE.
--- NOTE | 2023-12-22 12:21 | HO.POSTANES ---
Post Anesthesia Evaluation Post Anesthesia Evaluation Date of Service: 12/23/23 Vital Signs: Vital Signs Temp Pulse Resp BP Pulse Ox O2 Del Method 12/22/23 08:25 98.8 F 71 18 110/62 97 Room Air 12/22/23 07:32 Room Air 12/22/23 03:42 97.9 F 69 14 106/58 L 98 Room Air Anesthesia: General Endotracheal-GETA Mental Status: Awake Pain Control: Satisfactory Nausea/Vomiting: None Hydration: Adequate Anesthesia-Related Issues: No Anes. Related Issues
== END 2023-12-22 10:58 | disposition home or self-care (01) | DRG 548 ==
LOC: HO.ED 23:59 → HO.EDOVER 12-21 00:22 → HO.S3 12-21 01:53
PROVIDERS: Physician Assistant Medical; Admitting Provider Surgery; Emergency Provider Internal Medicine; Visit Provider Surgery
PROC: 0FT44ZZ Resection of Gallbladder, Percutaneous Endoscopic Approach (ICD-10-PCS; CPT 47562; principal; 2023-12-21 10:30)
DX: O99.63 Diseases of the digestive system complicating the puerperium (principal); K80.00 Calculus of gallbladder with acute cholecystitis without obstruction; Z20.822 Contact with and (suspected) exposure to COVID-19
CPT/HCPCS: 0241U; 36415; 76705; 80053; 81001; 83735; 84702; 85025; 87086; 88304; 99285; J0131; J1100; J1805; J1885; J2250; J2405; J2543; J2704; J2795; J3010

== ENCOUNTER → 2023-12-21 00:05 | Outpatient (BNV) | payer MEDICAID, SELFPAY | PROVIDERS: Admitting Provider Surgery; Emergency Provider Internal Medicine; Visit Provider Surgery | DX: K80.20 Calculus of gallbladder without cholecystitis without obstruction (principal) | CPT/HCPCS: 47562; 99024; 99222 ==

== ENCOUNTER 2024-01-14 15:37 | Outpatient (AMB) | payer MEDICAID, SELFPAY ==
--- NOTE | 2024-01-14 15:40 | MHC.OFFVIS ---
Vital Signs 01/14/24 15:41 Height 5 ft 4 in Weight 194 lb 0.108 oz BMI 33.3 BP 110/70 Blood Pressure Location Lt brachial Position Sitting Intake Visit Reasons: s/p cholecystectomy Intake Note: Patient is seen in office for post op assessment post laparoscopic cholecystectomy. 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 Patient was found to have a hydropic gallbladder with a gallbladder stone at the neck. She tolerated the procedure well and reports feeling improved today. She denies abdominal pain, nausea or vomiting. Her bowels are normal as well. REPLACED BY [facility] Medical History Symptomatic cholelithiasis Gallstone (impacted) Surgical History Hx laparoscopic cholecystectomy (12/21/23) Social History Household Members: Family Housing: House Do you presently have visiting nurse or other home services: No Alcohol intake: never Patient Tobacco Use Status: Never used Tobacco service: No Physical Exam Const General: healthy appearing Nutritional Appearance: well nourished Orientation/consciousness: patient oriented x3 Resp Effort & Inspection: normal respiratory effort GI Other: Well-healed trocar incisions without redness or discharge. No hernia noted with Valsalva. Neuro General: patient oriented x3 Extrem General: No edema Assessment & Plan Assessment & Plan (1) Gallstone (impacted): Code(s): K80.20 - Calculus of gallbladder without cholecystitis without obstruction Category: Medical (2) Symptomatic cholelithiasis: Code(s): K80.20 - Calculus of gallbladder without cholecystitis without obstruction Category: Medical Plan 23-year-old female patient with acute cholecystitis due to cholelithiasis returning status post laparoscopic cholecystectomy on 12/21/2023. She tolerated the procedure well and her wounds are nicely healing. There is no evidence of infection or hernia formation. She may resume normal activity without restrictions and should follow up as needed. Medications: Discontinued oxycodone Partial Fill upon patient request. Discontinued Reason: Patient Completed Course 5 mg PO Q6H PRN 15 tabs 0RF pain (scale score 7-10) Coding Level of Care Code Global (09983) Diagnoses Gallstone (impacted) K80.20 Symptomatic cholelithiasis K80.20
[2024-01-14 15:41] VITALS: BP 110/70; BMI 33.3
== END 2024-01-14 15:46 | disposition home or self-care (01) ==
PROVIDERS: Visit Provider Surgery
DX: K80.20 Calculus of gallbladder without cholecystitis without obstruction (principal)
CPT/HCPCS: 99024

== ENCOUNTER → 2024-01-14 15:37 | Outpatient (BNVA) | payer MEDICAID, SELFPAY | PROVIDERS: Visit Provider Surgery | DX: Z48.815 Encounter for surgical aftercare following surgery on the digestive system (principal); Z90.49 Acquired absence of other specified parts of digestive tract; Z98.890 Other specified postprocedural states | CPT/HCPCS: 99212 ==

== ENCOUNTER 2024-04-16 14:01 | Outpatient (REF) | payer MEDICAID, SELFPAY ==
[2024-04-16 16:26] LABS: Estimated Average Glucose 108 mg/dL; Hemoglobin A1c % 5.4 % (<6.0); Total Hemoglobin (HGBA1C) 3404.0482 umol/L
[2024-04-16 16:31] LABS: Cholesterol 197 mg/dL (<200); HDL Cholesterol 58 mg/dL (>40); LDL Cholesterol Calculated 123 mg/dL (<100); Triglycerides 84 mg/dL (<150)
[2024-04-16 16:49] LABS: TSH reflex Free T4 2.53 uIU/mL (0.32-4.0)
== END 2024-04-16 14:02 | disposition home or self-care (01) ==
LOC: HO.HHCL 14:01
PROVIDERS: Visit Provider Internal Medicine
DX: Z00.00 Encounter for general adult medical examination without abnormal findings (principal); F41.9 Anxiety disorder, unspecified
CPT/HCPCS: 36415; 80061; 83036; 84443

== ENCOUNTER 2024-07-02 | Outpatient (REF) | payer MEDICAID, SELFPAY ==
--- OUTSIDE RECORDS SUMMARY | 2024-10-08 13:57 | XMS_ITS ---
Author Organization [employer] Address [address] [facility] 7 [place] [address] Care Team Providers Care Oven Equipment Repairer Name Role Phone Fátima Curtis MD Primary Care Provide r [facility] Status:Enrolled (Active) Start date:08/10/2024 Enrollment date:10/05/2024 Enrollment reason:ADT Feed Overview ED- Pt went to [facility] ED on 08/08/24. Case Team Name Relationship Phone Paula Fernandes(Responsible Staff) Continued Care and Services Coordination
== END 2024-07-02 00:01 | disposition home or self-care (01) ==
LOC: HO.LNP
PROVIDERS: Visit Provider Internal Medicine
DX: Z13.89 Encounter for screening for other disorder (principal)
CPT/HCPCS: 88175

== ENCOUNTER 2024-08-08 12:06 | Emergency (ER) | payer MEDICAID, SELFPAY ==
--- NOTE | 2024-08-08 12:07 | ECG_ITS ---
Test Reason : PAIN Blood Pressure : */* mmHG Vent. Rate : 99 BPM Atrial Rate : 99 BPM P-R Int : 156 ms QRS Dur : 84 ms QT Int : 346 ms P-R-T Axes : 42 56 2 degrees QTcB Int : 444 ms Normal sinus rhythm Nonspecific T wave abnormality Abnormal ECG When compared with ECG of 07-Dec-2023 13:00, Vent. rate has increased by 34 bpm T wave inversion now evident in Anterior leads Referred By: Brian Taylor Electronically Signed By: FARHAD NESS
[2024-08-08 12:26] VITALS: BP 120/83; PULSE 95; RESP 18; TEMP 36.9; O2SAT 98; BMI 31.3
--- NOTE | 2024-08-08 12:27 | ED_ITS ---
HPI - General Adult General Chief complaint: Upper Respiratory Symptoms Stated complaint: diff breathing, fever Time Seen by Provider: 08/08/24 12:47 Source: patient Mode of arrival: ambulatory Limitations: no limitations History of Present Illness ED Provider: evon escamilla np HPI narrative: Patient is a 23 year old female who presents emergency department for evaluation 2 days with cough, congestion, subjective fever, pain in her chest upon deep inspiration and cough otherwise without chest pain and a mild sore throat. Denies any recent sick contacts. Denies headache, dizziness, neck pain, neck stiffness, nausea, vomiting, abdominal pain, numbness or tingling of the extremities, genitourinary symptoms. Related Data Home Medications ?Medication ?Instructions ?Recorded ?Confirmed No Known Home Meds 01/14/24 01/14/24 Allergies Allergy/AdvReac Type Severity Reaction Status Date / Time No Known Allergies Allergy Verified 08/08/24 12:28 Review of Systems Review of Systems: Yes all other systems are reviewed and are negative PMFSH Past Medical History Attestation statement: The following information was validated with the patient. Source: old records reviewed Medical History Symptomatic cholelithiasis Gallstone (impacted) Surgical History Hx laparoscopic cholecystectomy (12/21/23) Social History Social History Household Members: Family Housing: House Do you presently have visiting nurse or other home services: No Alcohol intake: never Patient Tobacco Use Status: Never used Tobacco Advance Directives: No Advance Directives Information Provided: No service: No Physical Exam ED Vital Signs: Vital Signs - 24 hr 08/08/24 12:26 Temperature 98.5 F Pulse Rate 95 Respiratory Rate 18 Blood Pressure 120/83 Pulse Oximetry 98 Oxygen Delivery Method Room Air BMI result Body Mass Index 31.3 Appearance: Alert.?Oriented to person, place and time. No acute distress.?Normal affect. Eyes: Pupils equal, round and reactive to light.? ENT: TM normal bilaterally. Pharynx is mildly erythematous without exudates, 1+ tonsillar hypertrophy. Uvula is midline. No trismus. No drooling. ? Neck: Normal inspection.? Neck supple.??No cervical adenopathy CVS: Heart sounds normal. Normal heart rate and rhythm.? Pulses normal.?? Respiratory: No respiratory distress.? Lung sounds clear to auscultation b ilaterally?? Abdomen: Soft and non-tender. Normoactive bowel sounds. Skin: Skin warm and dry.? Normal skin color.? ? Extremities: No lower extremity edema.? Neuro: Moves all extremities spontaneously. Sensation intact bilaterally. No motor deficits. Ambulates with normal steady gait. Course Course Course Narrative: RME, this is a rapid medical exam performed by Rico Taylor please refer to primary provider for complete H&P- 23 year old female presents for evaluation of cough, congestion, subjective fevers and chest pain with deep inspiration. She had an ekg on arrival. Clinical picture is consistent with a viral illness. Swabs are pending. Lungs are clear to ausucltation. Medical Decision Making Medical Decision Making [facility] Narrative: Patient is a 23 old female with no reported past medical history presenting for evaluation of upper respiratory symptoms. Influenza/RSV testing is negative. Group a strep testing negative. COVID-19 testing is positive. Lower suspicion for pneumonia, no respiratory distress, lung sounds are clear to the apices bilaterally no tachycardia tachypnea or hypoxia. 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 Speaking clear full sentences, ambulatory with steady gait. Discussed conservative treatment including rest, hydration, Tylenol/ibuprofen as needed for fever and body aches, saline nasal spray, humidifier, [id number] cold medication. Advised to follow-up with primary care provider as needed, discussed reasons to return back to the emergency department. All questions were answered. Patient discharged home in stable condition. Provided with a return to work/school note. Differential Diagnosis Differential Diagnoses: The differential diagnosis associated with the presentation includes ( See narrative above) Admission/Observation Consideration of admission/observation: Escalation of care including admission/observation considered ( see narrative above) Lab Data [facility] Lab Attestation statement: I reviewed the patient's lab results. ( see narrative above) Labs: Lab Results 08/08/24 Range/Units 12:18 Influenza Type A (PCR) NEGATIVE (Negative) Influenza Type B (PCR) NEGATIVE (Negative) RSV RNA Qual (PCR) NEGATIVE (Negative) SARS-CoV-2 RNA (RT-PCR) POSITIVE A (Negative) External Record Review External record reviewed: Outpatient record Prescription Management I considered prescription management with: Pain Medication ( acetaminophen/ibuprofen) Discharge Plan Discharge Clinical Impression: COVID-19 Patient Disposition: Home, Self-Care Instructions: COVID-19 (Coronavirus Disease 2019) (ED) Additional Instructions: Be sure to rest, stay well hydrated drinking plenty of fluids, eat small frequent meals. Tylenol/ibuprofen can be used as needed for fever/pain. Qqqt-qes-[id number] cold medications may be helpful as well for symptoms. Saline n eloisa spray, humidifier may be helpful for nasal congestion. You may return to the emergency department with any new or worsening symptoms or concerns. Follow-up with your primary care provider as needed. Should remain out of school/ work until symptoms have resolved and have been without a fever for 24 hours without the use of Tylenol or ibuprofen. Prescriptions: No Action No Known Home Meds Print Language: Montenegrin
--- OUTSIDE RECORDS SUMMARY | 2024-08-08 13:06 | XMS_ITS | Clinical Summary ---
Author Organization [employer] Address [address] [place] [address] Care Team Providers Care Roping Tender Name Role Phone Fátima Curtis MD Primary Care Provide r Allergies No known active allergies Medications * This document contains information received from the source organization and may not represent a complete record from that organization. SUMAtriptan (Imitrex) 50 MG tabletIndicatio ns:Migraine with aura and without status migrainosus, not intractable Take 1 tablet (50 mg) by mouth 1 (one) time if needed for migraine for up to 9 doses. May repeat dose once in 2 hours if no relief. Do not exceed 2 doses in 24 hours. 9 tablet 06/08/19 25 Active buPROPion XL (Wellbutrin XL) 150 MG 24 hr tabletIndicatio ns:PTSD (post-traumatic stress disorder),Anxie ty Take 1 tablet (150 mg) by mouth in the morning. Do not crush, chew, or split. 30 tablet 08/05/19 25 025 Active buPROPion XL (Wellbutrin XL) 150 MG 24 hr tabletIndicatio ns:PTSD (post-traumatic stress disorder),Anxie ty Take 1 tablet (150 mg) by mouth in the morning. Do not crush, chew, or split. 30 tablet 06/04/19 25 025 Discontinued(Re order (will not trigger notification to Pharmacy)) Active Problems Problem Noted Date Diagnosed Date Encounter for Papanicolaou smear of cervix 07/02 Assessment & Plan (07/02/2024 12:35 PM EDT): Pap smear and pelvic exam done patient will be contacted with results Nexplanon insertion 07/02/2024 Assessment & Plan (07/02/2024 12:37 PM EDT): Patient will be referred today for nexplanon Insertion Counseling about alternative control method until day appointment, I provided today with male condoms Anxiety 04/16/2024 Assessment & Plan (06/08/2024 12:17 PM EST): I discontinue from the chart prazosin, I advised to continue taking her bupropion 150 mg daily and follow-up with her psych provider and therapist Assessment & Plan (04/16/2024 4:24 PM EST): Counseling done Declines counselor referral I will start er on prazosin 1mg at bed time PTSD (post-traumatic stress disorder) 04/16/2024 Assessment & Plan (04/16/2024 4:25 PM EST): Psych prescriber referral in Migraine with aura 04/16/2024 Assessment & Plan (06/08/2024 12:18 PM EST): I advise to avoid migraine triggers like red wine, chocolate, cheese, strong perfumes I went up on her dose for sumatriptan to 50 mg as needed Follow-up in 3 months with me Assessment & Plan (04/16/2024 4:25 PM EST): I advise to avoid migraine triggers like red wine, chocolate, cheese, strong perfumes I will start patient on sumatriptan 25mg PRN Encounters * This document contains information received from the source organization and may not represent a complete record from that organization. Date Type Department Care Team Description 07/29/2024 Telephone [facility] [address] [place] [phone] Fátima Curtis MD Medication Question 07/28/2024 Travel 07/08/2024 Telephone [facility] [address] [place] [address] Fátima Curtis MD PAP RESULTS 07/02/2024 10:15 AM EDT Procedure Visit [facility] [address] [facility] [place] [address] Fátima Curtis MD Encounter for Papanicolaou smear of cervix (Primary Dx); Nexplanon insertion 07/02/2024 Travel 06/26/2024 Population Health Risk Score [facility] ([facility]) Department [address] [place] [address] [phone] Provider, Population Health Generic 06/25/2024 Travel 06/08/2024 11:30 AM EST Telemedicine [facility] [address] [place] [address] Fátima Curtis MD Migraine with aura and without status migrainosus, not intractable (Primary Dx); Anxiety 06/08/2024 Travel 06/03/2024 Telephone [facility] [address] [place] [address] Fátima Curtis MD Chart Prep 06/01/2024 Travel 05/16/2024 Refill [facility] [address] [place] [address] Fátmia Curtis MD Migraine with aura and without status migrainosus, not intractable from Last 3 Months Immunizations Name Administration Dates Next Due DTaP 04/25/2004, 2,06/07/2000,04/03,02/02/2000 HPV, Quadrivalent 09/07/2014,07/10/2013,12/12/19 13 Hep A, ped/adol, 2 dose 05/15/2016,09/07/2014 Hep B, Adolescent or Pediatric 06/07/2000,1999,1999 Hib (HbOC) 02/26/2001, 1,04/03/2000,02/01 IPV 12/25/2000, 1,04/03/2000,02/01 Influenza injectable quadriv alent preservative free 03/23/2020,02/09/2019,05/15/2016 Influenza, IIV3, injectable 12/23/2013 Influenza, Split (incl. qasim fied surface antigen) 12/19/2011 Influenza, seasonal, injecta ble, preservative free 04/16/2024 MMR 07/24/2004,12/20/2000 Meningococcal MCV4P [id number]-135 05/15/2016,12/01/19 11 Pneumococcal Conjugate PCV 7 02/26/2001, 06/07/2000,04/03/2000,02/01 Tdap 09/10/2023,11/30/2010 Varicella 11/08/2023,11/29/2010,12/20/2000 Social History Tobacco Use Types Packs/Day Years Used Date Smoking Tobacco: Unknown Passive Smoke Exposure: Never Tobacco Cessation:Counseling Given: Not Answered Alcohol Use Standard Drinks/Week Comments Never 0 (1 standard drink = 0.6 oz pur e alcohol) Housing Stability Answer Date Recorded What is your housing situation today? I have addison nicole 04/16/[address] you li ve. Do you have problems with any of the following? None of the above 04/16/2024 Food Insecurity Answer Date Recorded Within the past 12 months, y ou worried that your food would run out before you got money to buy more: Never True 04/16/2024 Within the past 12 months,th e food you bought just didn't last and you didn't have enough money to get more: Never True 05/2024 Transportation Answer Date Recorded In the past 12 months, has l ack of transportation kept you from medical appts, meetings, work or from getting things needed for daily living? No 04/16/2024 Utilities Answer Date Recorded In the past 12 months, has t he electric, gas, oil or water [email or web address] threatened to shut off services in your home? No 04/16/2024 Internet Access Answer Date Recorded Internet Access Q1 Yes 04/16/2024 Internet Access Q2 Not on file 04/16/2024 Comments No Sex and Gender Information Value Date Recorded Sex Assigned at Female 02/12/2022 10:16 AM EDT Legal Sex Female 10:16 AM EDT Gender Identity Female 02/12/2022 10:16 AM EDT Sexual Orientation Straight 02/12/2022 10 :16 AM EDT Last Filed Vital Signs Vital Sign Reading Time Taken Comments Blood Pressure 120/82 07/02/2024 10:33 AM EDT Pulse 99 07/02/2024 10:33 AM EDT Temperature 36.3 ??C (97.4 ??F) 07/02/2024 10:33 AM E DT Respiratory Rate 20 07/02/2024 10:33 AM EDT Oxygen Saturation 100% 04/16/2024 1:14 PM EST Inhaled Oxygen Concentration - - Weight 85.8 kg (189 lb 3.2 oz) 07/02/2024 10:33 AM EDT Height 175.3 cm (5' 9 ) 07/02/2024 10:33 AM EDT Body Mass Index 27.94 07/02/2024 10:33 AM EDT Plan of Treatment Upcoming Encounters Date Type Department Care Team (Late st Contact Info) Description 08/18/2024 10:30 AM EDT Procedure Visit [facility] [address] [place] [address] [phone] Tina Chávez CNM [address] [place] [address] 09/03/2024 10:45 AM EDT Office Visit [facility] [address] [place] [phone] Fátima Curtis MD [address] [place], [place] [phone] Health Maintenance Due Date Last Done Comments Depression Screening 1999 Alcohol/Substance Use Screening 2011 Family Planning (PISQ) 11/22/2014 Pneumococcal Vaccine: Pediatrics (0 to 5 Years) and At-Risk Patients (6 to 49) Years) (1 of 2 - PCV) 11/22/2018 02/26/2001, 06/07/2000, 04/03/2000, Additional history exists COVID-19 Vaccine ( season) 2023 09/29/2020, 09/08/2020 SDOH Screening 04/16/2025 04/16/2024 Tobacco Screening 08/04/2025 08/04/2024 Pap Smear 07/03/2027 07/02/2024, 06/01/2021 DTaP/Tdap/Td Vaccines (8 - Td or Tdap) 09/09/2033 09/10/2023, 11/30/2010, 04/25/2004, Additional history exists Zoster Vaccines (1 of 2) 11/22/2049 RSV Patients and Patients Aged 60 years or older (1 - 1-dose 75+ series) 11/22/2074 Hepatitis B Vaccines Completed 06/07/2000, 01/03/2000, 1999 IPV Vaccines Completed 12/25/2000, 07/14, 04/03/2000, Additional history exists HIB Vaccines Completed 02/26/2001, 05/17, 04/03/2000, Additional history exists HPV Vaccines Completed 09/07/2014, 06/14, 12/11/2012 Hepatitis A Vaccines Completed 05/15/2016, 09/08/19 15 Meningococcal Vaccine Completed 05/15/2016, 011 HIV Screening Completed 08/11/2022 Hepatitis C Screening Completed 08/11/2022 Influenza Vaccine Completed 04/16/2024, , 02/09/2019, Additional history exists RSV under 20 months Aged Out No longe r eligible based on patient's age to complete this topic Rotavirus Vaccines Aged Out No longer eligible based on patient's age to complete this topic Procedures Procedure Name Priority Date/Time Associated Diagnosis Comments PAP SMEAR Routine 07/02/2024 12:00 AM EDT Encounter for Papanicolaou smear of cervix HEPATITIS EXPOSURE SOURCE Routine 08/11/2022 5:26 PM EDT HIV AB/AG EXPOSURE SOURCE Routine 08/11/2022 5:26 PM EDT from Last 3 Months or Most Recently Relevant to Health Maintenance Results * Pap Smear (07/02/2024 12:00 AM EDT) Swab 07/02/2024 07/03/2024 8:0 5 AM EDT [facility] - 07/08/2024 10:22 AM EDT ----- ------- Name: Mel Millan ?Age/Sex: 23/F ? : 2000 Unit#: [id number] ?? Attend : ?Re07/02/24 ?Status: PRE REF ? Location: HO.LNP ?Disch: ? ----- ------- SPEC : [id number] ? RECD: 07/03/24 ? STATUS: ??SOUT ? REQ NUM: [id number] ? HENRI: 07/02/24- ? SUBM DR: Fátima Curtis MD ? ENTERED: ??07/03/24 ?SP TYPE: Pap Smr ?OTHR : ? ORDERED: ??Pap Smear ? Interpretation ?? Satisfactory for evaluation. ?? Negative for intraepithelial lesion or malignancy. ?Clinical Information LMP:06/10/24 Previous PAP test:Normal Other surgery: Other history: ? Material Received ?? ThinPrep-Cervical ----- ------- Signed (signature on file) KRYSTYNA Smith (ASCP) 07/08/24 1022 ? ----- ------- ? END OF REPORT ? us Fátima Weaver MD LAB CYTOLOGY ORDERABL ES Final Result [facility] [address] [place] [address] [phone] * Hepatitis Exposure Source (08/11/2022 5:26 PM EDT) ~Hepatitis B Surface Antibody NONREACTIVE Nonreactive [facility] Comment:Nonreactive: < 8.00 mIU/mL Hepatitis B Core Antibody Nonreactive Nonreactive [facility] Hepatitis C Ab Nonreactive Nonreactive [facility] Hepatitis B Surface Ag Negative Negative [facility] 08/11/2022 5:26 PM EDT 08/11/2022 5:30 PM EDT [facility] External Provider LAB BLO OD ORDERABLES Final Result Performing Organization Address [facility] Co de Phone Number [facility] [address] [place] [phone] * HIV Ab/Ag Exposure Source (08/11/2022 5:26 PM EDT) Pathologist [facility] HIV AB/AG Nonreactive Nonreactive [facility] Comment:HIV-1 p24 Ag and/or HIV-1/HIV-2 Ab not detected.A test result that is nonreactive does not exclude thepossibility of exposure to or infection with HIV-1 and/orHIV-2. Nonreactive results in this assay for individualswith prior exposure to HIV-1 and/or HIV-2 may be due toantigen and antibody levels that are below the limit ofdetection of this assay.[facility] [employer] [facility] HIV Ag/Ab Combo assay result andsupplemental assay results should be interpreted inconjunction with the patient's clinical presentation,history and other laboratory results. If the results areinconsistent with clinical evidence, additional testing issuggested to confirm the result. 08/11/2022 5:26 PM EDT 08/11/2022 5:30 PM EDT [facility] External Provider LAB BLO OD ORDERABLES Final Result Performing Organization Address [facility]/ZIP Co de Phone Number [facility] [address] [place] [phone] from Last 3 Months or Most Recently Relevant to Health Maintenance Insurance [facility] Care Teams Roping Tender Relationship Specialty Start Date End Date Fátima Curtis MD [address] [place] [phone] PCP - General Family Medicine 01/21/19
--- OUTSIDE RECORDS SUMMARY | 2024-08-08 13:06 | XMS_ITS | Encounter Summary ---
Author Organization [employer] Address [address] [place] [address] Care Team Providers Care Fiscal Accountant Name Role Phone Fátima Curtis MD Primary Care Provide r Reason for Visit * Reason Comments Med Change Request Encounter Details Date Type Department Care Team ([facility] st Contact Info) Description 04/16/2024 Refill [facility] [address] [place] [address] Fátima Curtis MD [address] [place] [phone] PTSD (post-traumatic stress disorder) Social History Tobacco Use Types Packs/Day Years Used Date Smoking Tobacco: Never Assessed Housing Stability Answer Date Recorded What is your housing situation today? I have addison bonnie 04/16/[address] you li [...] the past 12 months, has t he [employer], gas, oil or water company threatened to shut off services in your home? No 04/16/2024 Internet Access Answer Date Recorded Internet Access Q1 Yes 04/16/2024 Internet Access Q2 Not on file 04/16/2024 Comments Unknown Sex and Gender Information Value Date Recorded Sex Assigned at Female 02/12/2022 10:16 AM EDT Legal Sex Female 10:16 AM EDT Gender Identity Female 02/12/2022 10:16 AM EDT Sexual Orientation Straight 02/12/2022 10 :16 AM EDT documented as of this encounter Plan of Treatment Upcoming Encounters Date Type Department Care Team (Late st Contact Info) Description 08/18/2024 10:30 AM EDT Procedure Visit [facility] [address] [place] [phone] Tina Chávez CNM [address] [place] [address] 09/03/2024 10:45 AM EDT Office Visit [facility] [address] [place] [phone] Fátima Curtis MD [address] [place] [phone] documented as of this encounter Visit Diagnoses Diagnosis PTSD (post-traumatic stress disorder) Posttraumatic stress disorder documented in this encounter Care Teams Fiscal Accountant Relationship Specialty Start Date End Date Fátima Curtis MD [address] [place] [phone] PCP - General Family Medicine 01/21/19 documented as of this encounter
[2024-08-08 13:10] LABS: Influenza A PCR NEGATIVE (Negative); Influenza B PCR NEGATIVE (Negative); Resp Syncy Virus RNA Qual PCR NEGATIVE (Negative); SARS COV2 PCR INHOUSE POSITIVE (Negative)
[2024-08-08 13:52] LABS: IDNOW Serial# 55D5AD1C; Strep A Nucleic Acid Negative (Negative)
[2024-08-08 14:33] VITALS: BP 120/83; PULSE 95; RESP 18; TEMP 36.9; O2SAT 98
== END 2024-08-08 14:33 | disposition home or self-care (01) ==
PROVIDERS: Nurse Practitioner Family; Physician Assistant; Emergency Provider Emergency Medicine; PCP Internal Medicine
DX: U07.1 COVID-19 (principal); R06.02 Shortness of breath; R50.9 Fever, unspecified; R07.89 Other chest pain; J02.9 Acute pharyngitis, unspecified
CPT/HCPCS: 0241U; 87651; 93005; 99283

== ENCOUNTER → 2024-08-08 12:07 | Outpatient (BNV) | payer MEDICAID, SELFPAY | PROVIDERS: Emergency Provider Emergency Medicine; PCP Internal Medicine; Visit Provider Internal Medicine | DX: R94.31 Abnormal electrocardiogram [ECG] [EKG] (principal); R07.9 Chest pain, unspecified | CPT/HCPCS: 93010 ==

== ENCOUNTER 2024-09-03 11:10 | Outpatient (REF) | payer MEDICAID, SELFPAY ==
--- OUTSIDE RECORDS SUMMARY | 2024-09-03 11:47 | XMS_ITS | Encounter Summary ---
Author Organization [email or web address] Address [address] [facility] 7 [place] [address] Care Team Providers Care Geologist Petroleum Name Role Phone Fátima Curtis MD Primary Care Provide r Reason for Referral * Consultation (Routine) - Authorized Specialty Diagnoses / Procedures Referred By Contac t Referred To Contact Behavioral Health Diagnoses Anxiety Fátima Curtis MD [address] [place] [phone] Phone: tel: fax: Referral ID Status Reason Start Date Expiration Date Visits Requested Visits Authorized [id number] Authorized Specialty Services Required 09/03/2024 09/03/2025 1 1 Reason for Visit * Reason Comments Follow-up Migraines Encounter Details Date Type Department Care Team (Late st Contact Info) Description 09/03/2024 10:45 AM EDT Office Visit [facility] [address] [place] [phone] Fátima Curtis MD [address] [place] [address] [phone] Tuberculosis screening; Anxiety Social History Tobacco Use Types Packs/Day Years Used Date Smoking Tobacco: Never Passive Smoke Exposure: Never Smokeless Tobacco: Never Tobacco Cessation:Counseling Given: Not Answered Alcohol Use Standard Drinks/Week Comments Never 0 (1 standard drink = 0.6 oz pur e alcohol) Depression Answer Date Recorded Patient Health Questionnaire-9 Score 0 09/03/2024 Patient Health Questionnaire-9 Score 0 09/03/2024 Last PHQ-9: Questionnaire Data Not on file 0 09/03/2024 Housing Stability Answer Date Recorded What is [...] t he electric, gas, oil or water company threatened to shut off services in your home? No 04/16/2024 Depression Answer Date Recorded Patient Health Questionnaire-2 Score 0 09/03/2024 Internet Access Answer Date Recorded Internet Access Q1 Yes 04/16/2024 Internet Access Q2 Not on file 04/16/2024 Comments No Sex and Gender Information Value Date Recorded Sex Assigned at Female 02/12/2022 10:16 AM EDT Legal Sex Female 10:16 AM EDT Gender Identity Female 02/12/2022 10:16 AM EDT Sexual Orientation Straight 02/12/2022 10 :16 AM EDT documented as of this encounter Last Filed Vital Signs Vital Sign Reading Time Taken Comments Blood Pressure 133/78 09/03/2024 10:30 AM EDT Pulse 62 09/03/2024 10:30 AM EDT Temperature 36.5 ??C (97.7 ??F) 09/03/2024 10:30 AM E DT Respiratory Rate 20 09/03/2024 10:30 AM EDT Oxygen Saturation 99% 09/03/2024 10:30 AM EDT Inhaled Oxygen Concentration - - Weight 84.5 kg (186 lb 3.2 oz) 09/03/2024 10:30 AM EDT Height 162.6 cm (5' 4 ) 09/03/2024 10:30 AM EDT Body Mass Index 31.96 09/03/2024 10:30 AM EDT documented in this encounter Functional Status * Over the past 2 weeks, how often have you been bothered by any of the following problems? Question Answer Date of Assessment Author Patient Health Questionnaire-2 Score 0 09/03/2024 10:35 AM EDT Minerva Garay MA * Little interest or pleasure in doing things Answer Date of Assessment Author Not at all 09/03/2024 10:35 AM EDT Minerva Sarmiento MA * Feeling down, depressed, or hopeless Answer Date of Assessment Author Not at all 09/03/2024 10:35 AM EDT Minerva Sarmiento MA * Trouble falling or staying asleep, or sleeping too much Answer Date of Assessment Author Not at all 09/03/2024 10:35 AM EDT Minerva Sarmiento MA * Feeling tired or having little energy Answer Date of Assessment Author Not at all 09/03/2024 10:35 AM EDT Minerva Sarmiento MA * Poor appetite or overeating Answer Date of Assessment Author Not at all 09/03/2024 10:35 AM EDT Minerva Sarmiento MA * Feeling bad about yourself - or that you are a failure or have let yourself or your family down Answer Date of Assessment Author Not at all 09/03/2024 10:35 AM EDT Minerva Sarmiento MA * Trouble concentrating on things, such as reading the newspaper or watching television Answer Date of Assessment Author Not at all 09/03/2024 10:35 AM EDT Minerva Sarmiento MA * Moving or speaking so slowly that other people could have noticed? Or the opposite - being so fidgety or restless that you have been moving around a lot more than usual. Answer Date of Assessment Author Not at all 09/03/2024 10:35 AM EDT Minerva Sarmiento MA * Thoughts that you would be better off or hurting yourself in some way Answer Date of Assessment Author Not at all 09/03/2024 10:35 AM EDT Minerva Sarmiento MA * Patient Health Questionnaire-9 Score Answer Date of Assessment Author 0 09/03/2024 10:35 AM EDT Minerva Sarmiento MA * Over the last 2 weeks, how often have you been bothered by any of the following problems? Question Answer Date of Assessment Author Feeling nervous, anxious, or on edge 0 09/03/2024 10:35 AM EDT Minerva Abrams MA Not being able to stop or control worrying 0 09/03/2024 10:35 AM EDT Minerva Abrams MA Worrying too much about different things 0 09/03/2024 10:35 AM EDT Minerva Abrams MA Trouble relaxing 0 09/03/2024 10:35 AM EDT Minerva Abrams MA Being so restless that it is hard to sit still 0 09/03/2024 10:35 AM EDT Minerva Abrams MA Becoming easily annoyed or irritable 0 09/03/2024 10:35 AM EDT Minerva Abrams MA Feeling afraid as if something awful might happen 0 09/03/2024 10:35 AM EDT Minerva Devries MA BERNIEC-7 Total Score 0 09/03/2024 10:35 AM EDT Minerva Abrasm MA documented as of this encounter Plan of Treatment Upcoming Encounters Date Type Department Care Team (Late st Contact Info) Description 09/14/2024 11:15 AM EDT Office Visit [facility] [address] [place] [address] Tina Chávez CNM [address] [place] [address] Scheduled Orders Name Type Priority Associated Diagnoses Orde r Schedule T-SPOT??.TB Lab Routine Tuberculosis screening Expected: 09/03/2024 (Approximate), Expires: 09/03/2025 Scheduled Referrals Name Type Priority Associated Diagnoses Order Schedule Referral to Behavioral Health Outpatient Referral Routine Anxiety Expected: 09/03/2024 (Approximate), Expires: 09/03/2025 documented as of this encounter Visit Diagnoses Diagnosis Tuberculosis screening Screening examination for pulmonary tuberculosis Anxiety Anxiety state, unspecified documented in this encounter Additional Health Concerns Assessment Noted Time PHQ-9 Depression Total Score: 0 09/04/19 25 10:35 AM EDT documented as of this encounter Care Teams Geologist Petroleum Relationship Specialty Start Date End Date Fátima Curtis MD [address] [place] [address] PCP - General Family Medicine 01/21/19 documented as of this encounter
--- OUTSIDE RECORDS SUMMARY | 2024-09-03 11:47 | XMS_ITS | Encounter Summary ---
Author Organization [employer] Address [address] [facility] 7 [place] [address] Care Team Providers Care Debate Director Name Role Phone Fátima Curtis MD Primary Care Provide r Reason for Visit * Reason Onset Date Comments Chart Prep 09/02/2024 Encounter Details Date Type Department Care Team ([facility] st Contact Info) Description 09/02/2024 Telephone [facility] [address] [place] [address] Fátima Curtis MD [address] [place] [address] Chart Prep Social History Tobacco Use Types Packs/Day Years Used Date Smoking Tobacco: Never Passive Smoke Exposure: Never Smokeless Tobacco: Never Alcohol Use Standard Drinks/Week Comments Never 0 (1 standard drink = 0.6 oz pur e alcohol) Depression Answer Date Recorded Patient Health Questionnaire-9 Score 0 09/03/2024 Patient Health Questionnaire-9 Score 0 09/03/2024 Last PHQ-9: Questionnaire Data Not on file 0 09/03/2024 Housing Stability Answer Date Recorded What is your housing situation today? I have addisonluca nicole 04/16/[address] you [...] AM EDT documented as of this encounter Miscellaneous Notes * Telephone Encounter - Devonte Tan MA - 09/02/2024 12:06 PM EDT Chart Prep Labs: done Images: not applicable Referrals: Booked Vaccines due: Covid and PCV20 Screenings: not applicable Overdue care gaps: SBIRT and Tobacco documented in this encounter Plan of Treatment Upcoming Encounters Date Type Department Care Team (Late st Contact Info) Description 09/14/2024 11:15 AM EDT Office Visit [facility] [address] [place] [address] Tina Chávez CNM [address] [place] [address] documented as of this encounter Visit Diagnoses Not on filedocumented in this encounter Additional Health Concerns Assessment Noted Time PHQ-9 Depression Total Score: 5 08/19/19 25 11:56 AM EDT documented as of this encounter Care Teams Debate Director Relationship Specialty Start Date End Date Fátima Curtis MD [address] [place] [address] PCP - General Family Medicine 01/21/19 documented as of this encounter
--- OUTSIDE RECORDS SUMMARY | 2024-09-03 11:47 | XMS_ITS ---
Author Organization [employer] Address [address] [facility] 7 [place] [address] Care Team Providers Care Call Or Contact Centre Team Leader Name Role Phone Fátima Curtis MD Primary Care Provide r CM Complex Status:Outreach In Progress (Enrolling) Start date:08/10/2024 Enrollment reason:ADT Feed Overview ED- Pt went [place] [facility] on 08/08[facility]24. Case Team Name Relationship Phone Rashaun Whitmore RN(Responsible Staff) Registered [facility] [phone] Continued Care and Services Coordination
--- OUTSIDE RECORDS SUMMARY | 2024-09-03 11:47 | XMS_ITS | Clinical Summary ---
Author Organization [employer] Address [address] [facility] [address] 7[address] [place] [address] Care Team Providers Care Grain Loader Name Role Phone Fátima Curtis MD Primary [...] not crush, chew, or split. 30 tablet 1 09/04/19 25 025 Active hydrOXYzine pamoate (Vistaril) 25 MG capsuleIndicati ons:Anxiety Take 1-2 capsules (25-50 mg) by mouth if needed at bedtime for anxiety (and sleep.). 30 capsule 09/04/19 25 025 Active buPROPion XL (Wellbutrin XL) 150 MG 24 hr tabletIndicatio ns:PTSD (post-traumatic stress disorder),Anxie ty Take 1 tablet (150 mg) by mouth in the morning. Do not crush, chew, or split. 30 tablet 08/05/19 25 025 Discontinued(Re order (will not trigger notification to Pharmacy)) Hospital, Clinic, or Other Facility Administered Medication Ordered Dose Route Frequency Start Date End Date Status etonogestrel-elutin g 68 mg contraceptive implant 1 eachIndications:Nex planon insertion 1 each IL Once 08/18/2024 5 Discontinued etonogestrel-elutin g 68 mg contraceptive implant 1 eachIndications:Nex planon insertion 1 each IL Once 08/18/2024 5 Ended etonogestrel-elutin g 68 mg contraceptive implant 1 eachIndications:Nex planon insertion 1 each IL Once PRN Procedure 08/18/2024 5 Ended Active Problems Problem Noted Date Diagnosed Date Tuberculosis screening 09/03/2024 Encounter for Papanicolaou smear of cervix 07/02 [...] organization. Date Type Department Care Team Description 09/03/2024 10:45 AM EDT Office Visit [address] [address] Fátima Curtis MD Tuberculosis screening; Anxiety 09/03/2024 Travel 09/02/2024 Travel 09/02/[address] [address] Fátima Curtis MD Chart Prep 08/26/2024 Patient Outreach [address] [address] Fátima Curtis MD Pre-visit Planning (SDOH screening completed on 04/16/2024) 08/24/2024 Patient Outreach [address] [address] Fátima Curtis MD 08/18/2024 10:30 AM EDT Procedure Visit [address] [address] Tina Chávez CNM Nexplanon insertion (Primary Dx) 08/18/2024 Travel 08/14/[address] [address] Fátima Curtis MD chartprep 08/11/2024 Patient Outreach [address] [address] Fátima Curtis MD 08/11/2024 Travel 08/10/2024 Patient Outreach [address] [address] Fátima Curtis MD Care Coordination 08/10/2024 Patient Outreach [address] [address] Fátima Curtis MD Care Coordination 08/10/2024 Patient Outreach [address] [address] Fátima Curtis MD Care Coordination ([facility]- chart review) 08/10/2024 Patient Outreach [address] [address] Fátima Curtis MD 08/08/2024 Orders Only GENERIC EXTERNAL DATA DEPARTMENT Provider, Generic External Data 07/29/[address] [address] Fátima Curtis MD Medication Question 07/28/2024 Travel 07/08/[address] [address] Fátima Curtis MD PAP RESULTS 07/02/2024 10:15 AM EDT Procedure Visit [address] [address] Fátima Curtis MD Encounter for Papanicolaou smear of cervix (Primary Dx); Nexplanon insertion 07/02/2024 Travel 06/26/2024 Population Health Risk Score [facility] [address] [place] [phone] Provider, Population Health Generic 06/25/2024 Travel 06/08/2024 11:30 AM EST Telemedicine [facility] [place] [address] Fátima Curtis MD Migraine with aura and without status migrainosus, not intractable (Primary Dx); Anxiety 06/08/2024 Travel from Last 3 Months Immunizations Immunization Administration Dates Next Due DTaP 04/25/2004, 2,06/07/2000,04/03,02/02/2000 [...] your housing situation today? I have addison sing 04/16/[address] you li [...] Q2 Not on file 04/16/2024 Comments No Intention Date Recorded No desire to become (finding) 0 08/18/2024 Sex and Gender Information Value Date Recorded [...] Mass Index 31.96 09/03/2024 10:30 AM EDT Plan of Treatment Upcoming Encounters Date Type Department Care Team (Late st Contact Info) Description 09/14/2024 11:15 AM EDT Office Visit [facility] [address] [place] [address] Tina Chávez CNM [address] [place] [address] Health Maintenance Due Date Last Done Comments Alcohol/Substance Use Screening 2011 Pneumococcal Vaccine: Pediatrics (0 to 5 Years) and At-Risk Patients (6 to 49) Years) (1 of 2 - PCV) 11/22/2018 02/26/2001, 06/07/2000, 04/03/2000, Additional history exists COVID-19 Vaccine ( - 2023- season) 2023 09/29/2020, 09/08/2020 SDOH Screening 04/16/2025 04/16/2024 Disability Screening 08/18/2025 08/18/2024 Family Planning (PISQ) 08/18/2025 08/18/2024 Depression Screening 09/03/2025 09/03/2024, 09/04/19 Tobacco Screening 09/03/2025 09/03/2024 Pap Smear 07/03/2027 07/02/2024, 06/01/2021 DTaP/Tdap/Td Vaccines [...] Completed 04/16/2024, , 02/09/2019, Additional history exists Meningococcal B Vaccine Aged Out No l onger eligible based on patient's age to complete this topic RSV under 20 months Aged Out No longe r eligible based on patient's age to complete this topic Rotavirus Vaccines Aged Out No longer eligible based on patient's age to complete this topic Procedures Procedure Name Priority Date/Time Associated Diagnosis Comments POCT , URINE Routine 08/18/2024 10:52 AM EDT Nexplanon insertion AZ INSERTION DRUG DELIVERY IMPLANT Routine 08/18/2024 10:50 AM EDT Nexplanon insertion STREP A NUCLEIC ACID Routine 08/08/2024 1:26 PM EDT PAP SMEAR Routine 07/02/2024 12:00 AM EDT Encounter for Papanicolaou smear of cervix HEPATITIS EXPOSURE SOURCE Routine 08/11/2022 5:26 PM EDT HIV AB/AG EXPOSURE SOURCE Routine 08/11/2022 5:26 PM EDT from Last 3 Months or Most Recently Relevant to Health Maintenance Results * POCT , urine manually resulted (08/18/2024 10:52 AM EDT) Preg Test, Ur Negative Negative, Indeterminate, None Detected, Invalid, Specimen unsatisfactory for evaluation, Weakly Positive, 2+ QC Media Lot # [id number] Lot# Expiration Date [id number] Urine 08/18/2024 10:5 2 AM EDT Tina Chávez CNM POINT OF CARE TEST ENTER/ EDIT ORDERABLES Final Result * AZ INSERTION DRUG DELIVERY IMPLANT (08/18/2024 10:50 AM EDT) Narrative Tina Chávez CNM - 08/18/2024 10:50 AM EDT Tina Chávez CNM ? 08/18/2024 11:26 AM Insertion/Removal of Contraceptive Capsule Date/Time: 08/18/2024 10:50 AM Performed by: Tina Chávez CNM Authorized by: Tina Chávez CNM ?? Confirmed correct patient, procedure, site, and patient consented: Yes ?? Participating Staff: ??Tina Chávez CNM Consent: ??Consent obtained: ??Verbal and written ??Consent given by: ??Patient ??Procedural risks and benefits discussed: Yes ?Patient questions answered: yes ?Patient agrees, verbalizes understanding, and wants to proceed: yes ?Educational handouts given: yes ?Instructions and paperwork completed: yes ?? Indication: ??Indication: insertion of non-biodegradable drug delivery implant ?? Pre-procedure: ??Pre-procedure timeout performed: yes ?Prepped with: povidone-iodine ?Local anesthetic: 2ml 2% lidocaine. ??The site was cleaned and prepped in a sterile fashion: yes ?? Procedure: ??Procedure: ??Insertion ??Small stab incision was made in arm: no ?Left/right: ??Right ??Preloaded contraceptive capsule trocar was placed subdermally: yes ?Visualization of implant was obtained: yes ?Contraceptive capsule was inserted and trocar removed: yes ?Visualization of notch in stylet and palpation of device: yes ?Palpation confirms placement by provider and patient: yes ?Site was closed with steri-strips and pressure bandage applied: yes ?? OSM: 1 each etonogestrel-eluting 68 mg us Tina Chávez CNM IN CLINIC/BEDSIDE ORDERAB LES Final Result * Strep A Nucleic Acid (08/08/2024 1:26 PM EDT) IDNOW SERIAL# [id number] [facility] Strep A Nucleic Acid Negative Negative [facility] Comment:All test results mus t be correlated with clinical findings.This test has not been evaluated for monitoring treatment ofinfection.Additional follow-up testing using the culture method isrequired if the result is negative and clinical symptomspersist, or in the event of an acute rheumatic feveroutbreak. 08/08/2024 1:26 PM EDT 08/08/2024 1:29 PM EDT us Generic External Data Provider LAB MICROBIOLOGY - GENERAL ORDERABLES Final Result [facility] [address] [place] [address] [phone] * Pap Smear (07/02/2024 12:00 AM EDT) Swab 07/02/2024 07/03/2024 8:0 5 AM EDT Narrative [facility] - 07/08/2024 10:22 AM EDT ----- ------- Name: Mel Millan ?Age/Sex: 23/F ? : 2000 Unit#: [id number] ?? Attend Dr: ?Re07/02/24 ?Status: PRE REF ? Location: HO.LNP ?Disch: ? ----- ------- SPEC : [id number] ? RECD: 07/03/24-804 ? STATUS: ??SOUT ? REQ NUM: [id number] ? HENRI: 07/02/24-0000 ? SUBM DR: Fátima Curtis MD ? ENTERED: ??07/03/24-08 ?SP TYPE: Pap Smr ?OTHR DR: ? ORDERED: ??Pap Smear ? Interpretation ?? Satisfactory for evaluation. ?? Negative for intraepithelial lesion or malignancy. ?Clinical Information LMP:06/10/24 Previous PAP test:Normal Other surgery: Other history: ? Material Received ?? ThinPrep-Cervical ----- ------- Signed (signature on file) KRYSTYNA Smith (ASCP) 07/08/24 1022 ? ----- ------- ? END OF REPORT ? Fátima Weaver MD LAB CYTOLOGY ORDERABL ES Final Result Performing Organization Address [facility] Co de Phone Number [facility] [address] [place] [address] [phone] * Hepatitis Exposure Source (08/11/2022 5:26 PM EDT) ~Hepatitis B Surface Antibody NONREACTIVE Nonreactive [facility] Comment:Nonreactive: < 8.00 mIU/mL Hepatitis B Core Antibody Nonreactive Nonreactive [facility] Hepatitis C Ab Nonreactive Nonreactive [facility] Hepatitis B Surface Ag Negative Negative [facility] 08/11/2022 5:26 PM EDT 08/11/2022 5:30 PM EDT [facility] External Provider LAB BLO OD ORDERABLES Final Result Performing Organization Address [facility] de Phone Number [facility] [address] [place] [address] [phone] * HIV Ab/Ag Exposure Source (08/11/2022 5:26 PM EDT) Pathologist [facility] HIV AB/AG Nonreactive Nonreactive [facility] Comment:HIV-1 p24 Ag and/or HIV-1/HIV-2 Ab not detected.A test result that is nonreactive does not exclude thepossibility of exposure to or infection with HIV-1 and/orHIV-2. Nonreactive results in this assay for individualswith prior exposure to HIV-1 and/or HIV-2 may be due toantigen and antibody levels that are below the limit ofdetection of this assay.The [employer] HIV Ag/Ab Combo assay result andsupplemental assay results should be interpreted inconjunction with the patient's clinical presentation,history and other laboratory results. If the results areinconsistent with clinical evidence, additional testing issuggested to confirm the result. 08/11/2022 5:26 PM EDT 08/11/2022 5:30 PM EDT [facility] External Provider LAB BLO OD ORDERABLES Final Result [facility] [address] [place] [address] [phone] from Last 3 Months or Most Recently Relevant to Health Maintenance Insurance [facility] STANDARD Care Teams Grain Loader Relationship Specialty Start Date End Date Fátima Curtis MD [address] [place] [address] PCP - General Family Medicine 01/21/19
--- OUTSIDE RECORDS SUMMARY | 2024-09-03 11:47 | XMS_ITS | Encounter Summary ---
Author Organization [employer] Address [address] [facility] [address] [place] [address] Care Team Providers Care Manager Residential Name Role Phone Fátima Curtis MD Primary Care Provide r Encounter Details Date Type Department Care Team (Latest Contact Info) Description 09/03/2024 Travel Social History Tobacco Use Types Packs/Day Years [...] AM EDT documented as of this encounter Functional Status * Over the [...] at all 09/03/2024 10:35 AM EDT Minerva Sarmineto MA * Feeling bad about yourself - [...] or control worrying 0 09/03/2024 10:35 AM DOLLYT Minerva Abrams MA Worrying too much about different things 0 09/03/2024 10:35 AM DOLLYT Minerva Abrams MA Trouble relaxing 0 09/03/2024 10:35 AM DOLLYT Minerva Abrams MA Being so restless that it is hard to sit still 0 09/03/2024 10:35 AM Minerva Quinn MA Becoming easily annoyed or irritable 0 09/03/2024 10:35 AM DOLLYT Minerva Abrams MA Feeling afraid as if something awful might happen 0 09/03/2024 10:35 AM EDT Minerva Devries MA BERNICE-7 Total Score 0 09/03/2024 10:35 AM EDT Minerva Abrams MA documented as of this encounter Plan of Treatment Upcoming Encounters Date Type Department Care Team (Late st Contact Info) Description 09/14/2024 11:15 AM EDT Office Visit [facility] [address] [place] [address] Tina Chávez CNM [address] [place] [address] documented as of this encounter Visit Diagnoses Not on filedocumented in this encounter Additional Health Concerns Assessment Noted Time PHQ-9 Depression Total Score: 0 09/04/19 25 10:35 AM EDT documented as of this encounter Care Teams Manager Residential Relationship Specialty Start Date End Date Fátima Curtis MD [address] [place] [address] PCP - General Family Medicine 01/21/19 documented as of this encounter
--- OUTSIDE RECORDS SUMMARY | 2024-09-03 11:47 | XMS_ITS ---
Author Organization [employer] Address [address] [facility] 7 [place] [address] Care Team Providers Care Superintendent [employer] Name Role Phone Fátima Curtis MD Primary Care Provide r CHW Complex Status:Outreach In Progress (Enrolling) Start date:08/10/2024 Enrollment reason:ADT Feed Overview ED- Pt went to [facility] ED on 08/08/24. Case Team Name Relationship Phone Paula Fernandes(Responsible Staff) [phone] Continued Care and Services Coordination
--- OUTSIDE RECORDS SUMMARY | 2024-09-03 11:47 | XMS_ITS | Encounter Summary ---
Author Organization [employer] Address [address] [facility] [address] [place] [address] Care Team Providers Care Online Marketing Director Name Role Phone Fátima Curtis MD Primary Care Provide r Reason for Visit * Reason Comments Med Change Request Encounter Details Date Type Department Care Team ([facility] st Contact Info) Description 04/16/2024 Refill [facility] [address] [place] [address] Fátima Curtis MD [address] [place] [address] PTSD (post-traumatic stress disorder) Social History Tobacco [...] the past 12 months, has t he [employer], [employer], oil or water company threatened to shut [...] Description 09/14/2024 11:15 AM EDT Office Visit [facility] [address] [place], [place] [phone] Tina Chávez, BECKI [address] [place] [address] documented as of this encounter Visit Diagnoses Diagnosis PTSD (post-traumatic stress disorder) Posttraumatic stress disorder documented in this encounter Care Teams Online Marketing Director Relationship Specialty Start Date End Date Fátima Curtis MD [address] [place] [address] PCP - General Family Medicine 01/21/19 documented as of this encounter
--- OUTSIDE RECORDS SUMMARY | 2024-09-03 11:47 | XMS_ITS | Encounter Summary ---
Author Organization [employer] Address [address] [facility] [address] [place] [address] Care Team Providers Care Police Communications Operator Name Role Phone Fátima Curtis MD Primary Care Provide r Encounter Details Date Type Department Care Team (Latest Contact Info) Description 09/02/2024 Travel Social History Tobacco Use Types Packs/Day [...] Description 09/14/2024 11:15 AM EDT Office Visit [facility] [address] [place] [address] Tina Chávez CNM [address] [place] [address] documented as of this encounter Visit Diagnoses Not on filedocumented in this encounter Additional Health Concerns Assessment Noted Time PHQ-9 Depression Total Score: 5 08/19/19 25 11:56 AM EDT documented as of this encounter Care Teams Police Communications Operator Relationship Specialty Start Date End Date Fátima Curtis MD [address] [place] [address] PCP - General Family Medicine 01/21/19 documented as of this encounter
[2024-09-05 21:09] LABS: TS Negative Control Passed; TS Panel A 0; TS Panel B 0; TS Positive Control Passed; TSpotTB Negative (Negative)
== END 2024-09-03 11:11 | disposition home or self-care (01) ==
LOC: HO.HHCL 11:10
PROVIDERS: Visit Provider Internal Medicine
DX: Z11.1 Encounter for screening for respiratory tuberculosis (principal)
CPT/HCPCS: 36415; 86481

== ENCOUNTER 2024-11-04 13:51 | Outpatient (RCR) | payer MEDICAID, SELFPAY | END 2024-12-02 15:59 | disposition home or self-care (01) | LOC: HO.PT 13:51 | PROVIDERS: PCP Internal Medicine; Visit Provider Advanced Practice Midwife | DX: M54.6 Pain in thoracic spine (principal); N62 Hypertrophy of breast | CPT/HCPCS: 97110; 97112; 97140; 97161 ==

== ENCOUNTER 2025-03-08 10:17 | Outpatient (REF) | payer MEDICAID, SELFPAY ==
--- OUTSIDE RECORDS SUMMARY | 2025-03-08 09:45 | XMS_ITS | Encounter Summary ---
Author Organization [employer] Address [address] [facility] [address] [place] [address] Care Team Providers Care Bead Stringer Name Role Phone Fátima Curtis MD Primary Care Provide r Encounter Details Date Type Department Care Team ([facility] st Contact Info) Description 03/08/2025 9:45 AM EST Office Visit [facility] [address] [place] [address] Fátima Curtis MD [address] [place] [address] Screening examination for STI (Primary Dx); Mild intermittent asthma without complication; Migraine with aura and without status migrainosus, not intractable; Encounter for immunization; Anxiety Social History Tobacco Use Types Packs/Day Years Used Date Smoking Tobacco: Never Passive Smoke Exposure: Never Smokeless Tobacco: Never Alcohol Use Standard Drinks/Week Comments Never 0 (1 standard drink = 0.6 oz pur e alcohol) Depression Answer Date Recorded Patient Health Questionnaire-9 Score 13 10/12/2024 Patient Health Questionnaire-9 Score 13 10/12/2024 Last PHQ-9: Questionnaire Data Not on file 0 10/12/2024 Housing Stability Answer Date Recorded What is your housing situation today? I have addison nicole 04/16/[address] you li ve. Do you have problems with any of the following? None of the above 04/16/2024 Food Insecurity Answer Date Recorded Within the past 12 months, y ou worried that your food would run out before you got money to buy more: Sometimes True 2024 Within the past 12 months,th e food you bought just didn't last and you didn't have enough money to get more: Sometimes True 10/05/2024 Transportation Answer Date Recorded In the past [...] Answer Date Recorded Patient Health Questionnaire-2 Score 2 10/12/2024 Internet Access Answer Date Recorded Internet Access [...] Sign Reading Time Taken Comments Blood Pressure 112/70 03/08/2025 9:33 AM EST Pulse 66 03/08/2025 9:33 AM EST Temperature 34.6 C (94.3 F) 03/08/2025 9:33 AM EST Respiratory Rate 20 03/08/2025 9:33 AM EST Oxygen Saturation 99% 03/08/2025 9:33 AM EST Inhaled Oxygen Concentration - - Weight 83.2 kg (183 lb 6.4 oz) 03/08/2025 9:33 A M EST Height 162.6 cm (5' 4 ) 03/08/2025 9:33 AM EST Body Mass Index 31.48 03/08/2025 9:33 AM EST documented in this encounter Progress Notes * Fátima Weaver MD - 03/08/2025 9:45 AM EST SUBJECTIVE: Mel Millan is a 24 y.o. year old female who presents for Follow up . Mel Millan, 24 years Asthma - Increased difficulty with asthma symptoms during winter - Shortness of breath when walking upstairs - Last used albuterol inhaler prior to current worsening; currently without inhaler Anxiety - Occasional anxiety reported - Previously prescribed psychiatric medications, discontinued after prescriptions were canceled - Waiting for psychiatrist and therapist appointments Migraines - Fewer migraine episodes recently - Menstrual cycle has not occurred recently Sleep Disturbance - Previous psychiatric medication helped with sleep and nightmares - Medication caused emotional numbness, leading to discontinuation Social History Social History Narrative Not on file Problem List[1] Anxiety PTSD (post-traumatic stress disorder) Migraine with aura Tuberculosis screening Mild intermittent asthma without complication Moderate major depression (CMS/HCC) ([facility]) Screening examination for STI Family History[2] Review of Systems Constitutional: Negative. HENT: Negative. Respiratory: Positive for chest tightness and shortness of breath. Negative for apnea, cough, choking, wheezing and stridor. Cardiovascular: Negative. Psychiatric/Behavioral: Positive for sleep disturbance. The patient is nervous/anxious. OBJECTIVE: Vitals: 03/08/25 0933 BP: 112/70 BP Location: Left arm Patient Position: Sitting BP Cuff Size: Adult Pulse: 66 Resp: 20 Temp: 94.3 ??F (34.6 ??C) TempSrc: Temporal SpO2: 99% Weight: 183 lb 6.4 oz (83.2 kg) Height: 5' 4 (1.626 m) Physical Exam Constitutional: Appearance: Normal appearance. Cardiovascular: Rate and Rhythm: Normal rate and regular rhythm. Pulmonary: Effort: Pulmonary effort is normal. Breath sounds: Normal breath sounds. Abdominal: General: Abdomen is flat. Palpations: Abdomen is soft. Musculoskeletal: Right lower leg: No edema. Left lower leg: No edema. Neurological: Mental Status: She is alert. Follow Up: No follow-ups on file. Medications Ordered Prior to Encounter[3] Problem List Items Addressed This Visit Mild intermittent asthma without complication Relevant Medications albuterol 108 (90 Base) MCG/ACT inhaler Migraine with aura Relevant Medications SUMAtriptan (Imitrex) 50 MG tablet Screening examination for STI - Primary Relevant Orders HIV-1/2 Antigen and Antibodies, Fourth Generation, with Reflexes Hepatitis A,B,C Profile RPR (Monitor) with Reflex to Titer Chlamydia/N. Gonorrhoeae, PCR, Urine Anxiety Other Visit Diagnoses Encounter for immunization Relevant Orders FLU VACCINE TRIVALENT [id number] (Fluarix) 19 yrs + (Completed) PCV-20 VACCINE 6 wks + (Completed) Mild intermittent asthma without complication: - Asthma symptoms worsening during winter, increased dyspnea with exertion. - Prescribed albuterol inhaler with 3 refills. Administered influenza and pneumococcal vaccines dueto asthma. Follow-up scheduled in six months. Migraine with aura and without status migrainosus, not intractable: - Migraines currently well controlled, fewer episodes reported. - Prescribed sumatriptan refill. Screening examination for STI: - Ordered blood tests for hepatitis, syphilis, and chlamydia. Results to be reviewed and patient melissa notified. Anxiety: - Anxiety present, currently not on medication, awaiting psychiatrist and therapist appointments. - No medication prescribed at this time. Patient agreed to wait for specialist follow-up. This note was drafted using Ambient (AI) technology. The patient/patient's guardian has been informed and has consented to the use of this technology: Yes [1] Patient Active Problem List Diagnosis Anxiety PTSD (post-traumatic stress disorder) Migraine with aura Tuberculosis screening Mild intermittent asthma without complication Moderate major depression (CMS/HCC) ([facility]) Screening examination for STI [2] No family history on file. [3] Current Outpatient Medications on File Prior to Visit Medication Sig Dispense Refill buPROPion XL (Wellbutrin XL) 150 MG 24 hr tablet Take 1 tablet (150 mg) by mouth in the morning. Donot crush, chew, or split. 30 tablet 1 hydrOXYzine pamoate (Vistaril) 25 MG capsule Take 1-2 capsules (25-50 mg) by mouth if needed at bedtime for anxiety (and sleep.). 30 capsule 0 ibuprofen 800 MG tablet 1 tablet every 8 hours x 7 days. Take with food 21 tablet 0 [DISCONTINUED] SUMAtriptan (Imitrex) 50 MG tablet Take 1 tablet (50 mg) by mouth 1 (one) time if needed for migraine for up to 9 doses. May repeat dose once in 2 hours if no relief. Do not exceed 2 doses in 24 hours. 9 tablet 0 No current facility-administered medications on file prior to visit. documented in this encounter Plan of Treatment Scheduled Orders Name Type Priority Associated Diagnoses Orde r Schedule HIV-1/2 Antigen and Antibodies, Fourth Generation, with Reflexes Lab Routine Screening examination for STI Expected: 03/08/2025 (Approximate), Expires: 03/08/2026 Hepatitis A,B,C Profile Lab Routine Screening examination for STI Expected: 03/08/2025, Expires: 03/08/2026 RPR (Monitor) with Reflex to Titer Lab Routine Screening examination for STI Expected: 03/08/2025, Expires: 03/08/2026 Chlamydia/N. Gonorrhoeae, PCR, Urine Lab Routine Screening examination for STI Ordered: 03/08/2025 documented as of this encounter Visit Diagnoses Diagnosis Screening examination for STI- Primary Mild intermittent asthma without complication Migraine with aura and without status migrainosus, not intractable Encounter for immunization Anxiety Anxiety state, unspecified documented in this encounter Additional Health Concerns Assessment Noted Time PHQ-9 Depression Total Score: 13 10/12/ 025 2:48 PM EDT documented as of this encounter Care Teams Bead Stringer Relationship Specialty Start Date End Date Fátima Curtis MD [address] [place] [address] PCP - General Family Medicine 01/21/19 documented as of this encounter
--- OUTSIDE RECORDS SUMMARY | 2025-03-08 12:37 | XMS_ITS | Encounter Summary ---
Author Organization [employer] Address 75 [facility] [address] [place] [address] Care Team Providers Care Motor Coach Driver Name Role Phone Fátima Curtis MD Primary Care Provide r Reason for Visit * Reason Comments Med Change Request Encounter Details Date Type Department Care Team ([facility] st Contact Info) Description 04/16/2024 Refill [facility] [address] [place] [address] Fátima Curtis MD [address] [place] [address] PTSD (post-traumatic stress disorder) Social History Tobacco [...] the past 12 months, has t he [email or web address], [employer], oil or water company threatened to shut [...] as of this encounter Plan of Treatment Not on file documented as of this encounter Visit Diagnoses Diagnosis PTSD (post-traumatic stress disorder) Posttraumatic stress disorder documented in this encounter Care Teams Motor Coach Driver Relationship Specialty Start Date End Date Fátima Curtis MD [address] [place] [address] PCP - General Family Medicine 01/21/19 documented as of this encounter
--- OUTSIDE RECORDS SUMMARY | 2025-03-08 12:37 | XMS_ITS | Clinical Summary ---
Author Organization [employer] Address [address] [facility] [address] [place] [address] Care Team Providers Care Investment Officer Name Role Phone Fátima Curtis MD Primary Care Provide r Allergies No known active allergies Medications * This document contains information received from the source organization and may not represent a complete record from that organization. buPROPion XL (Wellbutrin XL) 150 MG 24 hr tabletIndication s:PTSD (post-traumatic stress disorder),Anxiet y Take 1 tablet (150 mg) by mouth in the morning. Do not crush, chew, or split. 30 tablet 1 09/04/19 25 Active hydrOXYzine pamoate (Vistaril) 25 MG capsuleIndicatio ns:Anxiety Take 1-2 capsules (25-50 mg) by mouth if needed at bedtime for anxiety (and sleep.). 30 capsule 09/04/19 25 Active ibuprofen 800 MG tablet 1 tablet every 8 hours x 7 days. Take with food 21 tablet 11/05/19 25 Active albuterol 108 (90 Base) MCG/ACT inhalerIndicatio ns:Mild intermittent asthma without complication Inhale 2 puffs every 4 (four) hours if needed for wheezing. 18 g 3 03/08/20 25 026 Active SUMAtriptan (Imitrex) 50 MG tabletIndication s:Migraine with aura and without status migrainosus, not intractable Take 1 tablet (50 mg) by mouth 1 (one) time if needed for migraine. May repeat dose once in 2 hours if no relief. Do not exceed 2 doses in 24 hours. 9 tablet 1 03/08/20 25 Active SUMAtriptan (Imitrex) 50 MG tabletIndication s:Migraine with aura and without status migrainosus, not intractable Take 1 tablet (50 mg) by mouth 1 (one) time if needed for migraine for up to 9 doses. May repeat dose once in 2 hours if no relief. Do not exceed 2 doses in 24 hours. 9 tablet 06/08/19 25 025 Discontinued(Re order (will not trigger notification to Pharmacy)) Active Problems Problem Noted Date Diagnosed Date Screening examination for STI 03/08/2025 Moderate major depression (CMS/HCC) 10/12/2024 Tuberculosis screening 09/03/2024 Mild intermittent asthma without complication Assessment & Plan (09/03/2024 1:44 PM EDT): Asthma is stable, continue with same interventions Anxiety 04/16/2024 Assessment & Plan (09/03/2024 1:44 PM EDT): Extensive counseling done today I will refer her to [facility] for therapist Meanwhile continue to follow-up with psychiatrist and continue with Wellbutrin 150 mg daily plus hydroxyzine as needed at bedtime Assessment & Plan (06/08/2024 12:17 PM EST): [...] as needed Follow-up in 3 months with pr Assessment & Plan (04/16/2024 4:25 PM EST): I advise to avoid migraine triggers like red wine, chocolate, cheese, strong perfumes I will start patient on sumatriptan 25mg PRN Resolved Problems Problem Noted Date Diagnosed Date Resolved Date Encounter for Papanicolaou smear of cervix 07/02/2024 09/03/2024 Assessment & Plan (07/02/2024 12:35 PM EDT): Pap smear and pelvic exam done patient will be contacted with results Nexplanon insertion 07/02/2024 09/04/19 Assessment & Plan (07/02/2024 12:37 PM EDT): Patient will be referred today for nexplanon Insertion Counseling about alternative control method until day appointment, I provided today with male condoms Encounters Date Type Department Care Team Description 03/08/2025 9:45 AM EST Office Visit [address] [address] Fátima Curtis MD Screening examination for STI (Primary Dx); Mild intermittent asthma without complication; Migraine with aura and without status migrainosus, not intractable; Encounter for immunization; Anxiety 03/08/2025 Travel 03/05/[address] [address] Fátima Curtis MD chart prep 03/01/2025 Patient Outreach [address] [address] Fátima Curtis MD Pre-visit Planning (SDOH screening completed on 10/05/2024) 02/11/2025 Patient Outreach [address] [address] Fátima Curtis MD Care Coordination ([address] Paula Fernandes telephone call outreach) from Last 3 Months Immunizations Immunization Administration Dates Next Due DTaP 04/25/2004, 2,06/07/2000,04/03,02/02/2000 HPV, Quadrivalent 09/07/2014,07/10/2013,12/12/19 13 Hep A, ped/adol, 2 dose 05/15/2016,09/07/2014 Hep B, Adolescent or Pediatric 06/07/2000,1999,1999 Hib (HbOC) 02/26/2001, 1,04/03/2000,02/01 IPV 12/25/2000, 1,04/03/2000,02/01 Influenza injectable quadriv alent preservative free 03/23/2020,02/09/2019,05/15/2016 Influenza, IIV3, injectable 12/23/2013 Influenza, Split (incl. qasim fied surface antigen) 12/19/2011 Influenza, seasonal, injecta ble, preservative free 03/08/2025,04/16/2024 MMR 07/24/2004,12/20/2000 Meningococcal MCV4P ACYW-135 05/15/2016,12/01/19 11 Pneumococcal Conjugate PCV 20 03/08/2025 Pneumococcal Conjugate PCV 7 02/26/2001, 06/07/2000,04/03/2000,02/01 Tdap [...] Recorded No desire to become (finding) 0 09/14/2024 Sex and Gender Information Value Date Recorded [...] Mass Index 31.48 03/08/2025 9:33 AM EST Plan of Treatment Health Maintenance Due Date Last Done Comments COVID-19 Vaccine ( season) 2024 09/29/2020, 09/08/2020 Depression Monitoring 04/13/2025 10/12/2024, 025 Disability Screening 08/18/2025 08/18/2024 Family Planning (PISQ) 09/14/2025 09/14/2024 SDOH Screening 10/05/2025 10/05/2024 Alcohol/Substance Use Screening 03/08/2026 03/08/2025 Tobacco Screening 03/08/2026 03/08/2025 Pap Smear 07/03/2027 07/02/2024, 06/01/2021 DTaP/Tdap/Td Vaccines [...] C Screening Completed 08/11/2022 Influenza Vaccine Completed 03/08/2025, , 03/23/2020, Additional history exists Pneumococcal Vaccine: Pediatrics (0 to 5 Years) and At-Risk Patients (6 to 49) Years Completed 03/08/2025, 02/26/2001, 06/07/2000, Additional history exists Meningococcal B Vaccine Aged [...] (07/02/2024 12:00 AM EDT) Swab 07/02/2024 07/03/2024 8: 05 AM EDT [facility] - 07/08/2024 10:22 AM EDT ----- ------- Name: MontyMel Age/Sex: 23/F : 2000 Unit#: [id number] Attend Dr: Re07/02/24 Status: PRE REF Location: HO.LNP Disch: ----- ------- SPEC : [id number] RECD: 07/03/24 STATUS: TYREL CASTELLANOS NUM: [id number] HENRI: 07/02/24-[address]: Fátima Curtis MD ENTERED: 07/03/24 SP TYPE: Pap Smr YAHIR DR: ORDERED: Pap Smear Interpretation Satisfactory for evaluation. Negative for intraepithelial lesion or malignancy. Clinical Information LMP:06/10/24 Previous PAP test:Normal Other surgery: Other history: Material Received ThinPrep-Cervical ----- ------- Signed (signature on file) KRYSTYNA Smith ([facility]) 07/08/24 1022 ----- ------- END OF REPORT Fátima Weaver MD LAB CYTOLOGY ORDERABL ES Final Result Performing Organization Address [facility] [place] [facility]/ZIP Co de Phone Number [facility] [address] [place] [address] [phone] * Hepatitis Exposure Source (08/11/2022 5:26 PM EDT) ~Hepatitis B Surface Antibody NONREACTIVE Nonreactive [facility] Comment:Nonreactive: < 8.00 mIU/mL Hepatitis B Core Antibody Nonreactive Nonreactive [facility] Hepatitis C Ab Nonreactive Nonreactive [facility] Hepatitis B Surface Ag Negative Negative [facility] 08/11/2022 5:26 PM EDT 08/11/2022 5:30 PM EDT [facility] External Provider LAB BLO OD ORDERABLES Final Result Performing Organization Address [facility] [place] [facility]/ZIP Co de Phone Number [facility] [address] [place] [address] [phone] * HIV Ab/Ag Exposure Source (08/11/2022 5:26 PM EDT) HIV AB/AG Nonreactive Nonreactive [facility] Comment:HIV-1 p24 Ag and/or HIV-1/HIV-2 Ab not detected.A test result that is nonreactive does not exclude thepossibility of exposure to or infection with HIV-1 and/orHIV-2. Nonreactive results in this assay for individualswith prior exposure to HIV-1 and/or HIV-2 may be due toantigen and antibody levels that are below the limit ofdetection of this assay.[employer] HIV Ag/Ab Combo assay result andsupplemental assay results should be interpreted inconjunction with the patient's clinical presentation,history and other laboratory results. If the results areinconsistent with clinical evidence, additional testing issuggested to confirm the result. 08/11/2022 5:26 PM EDT 08/11/2022 5:30 PM EDT [facility] External Provider LAB BLO OD ORDERABLES Final Result [facility] [address] [place] [address] [phone] from Last 3 Months or Most Recently Relevant to Health Maintenance Insurance [facility] Care Teams Investment Officer Relationship Specialty Start Date End Date Fátima Curtis MD [address] [place] [phone] PCP - General Family Medicine 01/21/19
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
--- OUTSIDE RECORDS SUMMARY | 2025-03-08 12:38 | XMS_ITS | Encounter Summary ---
Author Organization [employer] Address [address] [place] [address] Care Team Providers Care Music Sound Light Technician Name Role Phone Fátima Curtis MD Primary Care Provide r Encounter Details Date Type Department Care Team (Latest Contact Info) Description 03/08/2025 Travel Social History Tobacco Use Types Packs/Day [...] Noted Time PHQ-9 Depression Total Score: 13 025 2:48 PM EDT documented as of this encounter Care Teams Music Sound Light Technician Relationship Specialty Start Date End Date Fátima Curtis MD [address] [place] [address] PCP - General Family Medicine 01/21/19 documented as of this encounter
--- OUTSIDE RECORDS SUMMARY | 2025-03-08 12:38 | XMS_ITS | Encounter Summary ---
Author Organization [employer] Address [address] [place] [address] Care Team Providers Care Psychologist Chief Name Role Phone Fátima Curtis MD Primary Care Provide r Reason for Visit * Reason Onset Date Comments chart prep 03/05/2025 Encounter Details Date Type Department Care Team ([facility] st Contact Info) Description 03/05/2025 Telephone [facility] MEDICINE [address] [place] [address] Fátima Curtis MD [address] [place] [address] chart prep Social History Tobacco Use Types Packs/Day Years [...] encounter Miscellaneous Notes * Telephone Encounter - Roxana Jones MA - 03/05/2025 11:02 AM EST Chart Prep Labs: not applicable Images: not applicable Referrals: complete Vaccines due: Covid, Flu, and PCV20 Screenings: not applicable Overdue care gaps: SBIRT documented in this encounter Plan of Treatment Not on file documented as of this encounter Visit Diagnoses Not on filedocumented in this encounter Additional Health Concerns Assessment Noted Time PHQ-9 Depression Total Score: 13 025 2:48 PM EDT documented as of this encounter Care Teams Psychologist Chief Relationship Specialty Start Date End Date Fátima Curtis MD [address] [place] [address] PCP - General Family Medicine 01/21/19 documented as of this encounter
[2025-03-08 12:52] LABS: CT PCR Urine NOT DETECTED (Not Detect.); NG PCR Urine NOT DETECTED (Not Detect.)
[2025-03-09 04:54] LABS: HBS Num1 0.00 mIU/mL (0-7.99); HBc Num1 0.11 S/CO (0.00-0.79); HBsAGNum1 0.43 S/CO (0.00-0.99); HIV Num 1 0.09 S/CO (0.00-0.99); Hepatitis A Antibody IgM 0.23 Index (0-0.79); Hepatitis B Surface Antigen Negative (Negative); ~HepC Num1 0.10 S/CO (0.00-0.79); ~Hepatitis A Antibody IgM Nonreactive (Nonreactive); ~Hepatitis B Surface Antibody NONREACTIVE (Nonreactive); ~Hepatitis C Antibody Nonreactive (Nonreactive)
== END 2025-03-08 10:18 | disposition home or self-care (01) ==
LOC: HO.HHCL 10:17
PROVIDERS: PCP Internal Medicine; Visit Provider Internal Medicine
DX: Z20.2 Contact with and (suspected) exposure to infections with a predominantly sexual mode of transmission (principal); Z11.59 Encounter for screening for other viral diseases; Z11.4 Encounter for screening for human immunodeficiency virus [HIV]
CPT/HCPCS: 86592; 86704; 86706; 86709; 86803; 87340; 87389; 87491; 87591

== ENCOUNTER 2025-04-13 09:07 | Emergency (ER) | payer MEDICAID, SELFPAY ==
--- NOTE | ~2025-04-13 | XR_ITS ---
EXAMINATION: XR CHEST CLINICAL INFORMATION: cough COMPARISON: 12/07/2023. TECHNIQUE: 2 views of the chest were obtained. FINDINGS: The cardiac, hilar, and mediastinal contours are normal. The lungs are clear bilaterally. There is no pneumothorax or pleural effusion. There is no acute osseous or soft tissue abnormality. There are cholecystectomy clips present. XR/XR chest 2V IMPRESSION: No active pulmonary disease. Electronically signed by: Jaime Pickett MD 04/13/2025 09:58 AM [facility]
--- NOTE | 2025-04-13 09:09 | ECG_ITS ---
Test Reason : CHEST PAIN Blood Pressure : */* mmHG Vent. Rate : 135 BPM Atrial Rate : 135 BPM P-R Int : 136 ms QRS Dur : 82 ms QT Int : 286 ms P-R-T Axes : 53 66 -7 degrees QTcB Int : 429 ms Sinus tachycardia T wave abnormality, consider anterior ischemia Abnormal ECG When compared with ECG of 08-Aug-2024 12:11, No significant change was found Referred By: Thelma Riley Electronically Signed By: FARHAD NESS
[2025-04-13 09:30] VITALS: BP 122/76; PULSE 136; RESP 16; TEMP 38.2; O2SAT 95; BMI 29.4
--- NOTE | 2025-04-13 09:30 | ED.GENADULT ---
HPI - General Adult General Chief complaint: Upper Respiratory Symptoms Stated complaint: CP, diff breathing, fever Time Seen by Provider: 04/13/25 10:46 Source: patient Mode of arrival: ambulatory Limitations: no limitations History of Present Illness ED Provider: THELMA RILEY PA-C HPI narrative: 24 year old female presents to the ED today for evaluation of nausea, vomiting, diarrhea, cough, nasal congestion x3 days. No known sick contacts. She has been taking mucinex, dayquil/nyquil without much improvement. Related Data Previous Rx's ?Medication ?Instructions ?Recorded ondansetron 4 mg disintegrating 4 mg PO Q8H PRN nausea and 04/13/25 tablet vomiting #10 tabs Allergies Allergy/AdvReac Type Severity Reaction Status Date / Time No Known Allergies Allergy Verified 04/13/25 09:34 Review of Systems Review of Systems: Yes all other systems are reviewed and are negative [facility] Past Medical History Attestation statement: The following information was validated with the patient. Source: old records reviewed and nursing notes reviewed Medical History Symptomatic cholelithiasis Gallstone (impacted) Surgical History Hx laparoscopic cholecystectomy (12/21/23) Social History Social History Household Members: Family Housing: House Do you presently have visiting nurse or other home services: No Alcohol intake: never Patient Tobacco Use Status: Never used Tobacco Advance Directives: No Advance Directives Information Provided: No service: No Physical Exam ED Vital Signs: Vital Signs - 24 hr 04/13/25 09:30 04/13/25 11:02 Temperature 100.8 F H Pulse Rate 136 H 120 H Respiratory Rate 16 16 Blood Pressure 122/76 122/81 Pulse Oximetry 95 97 Oxygen Delivery Method Room Air Room Air BMI result Body Mass Index 29.4 febrile, tachycardic General: Well appearing, in no acute distress. Skin: Warm, dry, intact. No rashes or lesions. Head: Normocephalic, atraumatic. EENT: Hearing is intact b/l. Conjunctiva clear. Sclera is anicteric. PERRLA. EOM intact. Moist mucous membranes.? Neck: Supple without LAD Cardiac: Chest wall symmetric. RRR Lungs: Normal respiratory effort without accessory muscle use. CTA bilaterally. No rales, rhonchi, or wheezes.? Abdomen: Soft, non-tender, non-distended. No rebound tenderness or guarding. Positive BS x4. Back: No midline spinous or paraspinal tenderness. No step off deformity. Ext: Upper and lower extremities atraumatic, without tenderness, deformity, swelling or erythema Neuro: AOx3. Normal speech. Ambulating with steady gait. Course Course Course Narrative: 1106 -- Patient has tested positive for flu A. Negative COVID, RSV. Chest x-ray without infiltrate or consolidation to suggest pneumonia. EKG showing sinus tachycardia, rate of 135, no acute ischemic changes or ST elevation > I do not suspect sepsis, patient has a viral URI. > motrin/tylenol ordered. plan for revital. 1310 -- Vitals stable. tolerating PO. d/c home with supportive care. Patient has remained stable throughout ED visit today. Discussed worrisome signs and symptoms and when to return to the ED. All questions answered at this time. Patient is agreeable with disposition and stable for discharge. Medications Administered Discontinued Medications Generic Name Dose Route Start Last Admin Trade Name Freq PRN Reason Stop Dose Admin Acetaminophen 975 mg 04/13/25 10:52 04/13/25 10:58 Acetaminophen 325 Mg Tablet PO 04/13/25 10:53 975 mg ONCE ONE Administration Ibuprofen 600 mg 04/13/25 10:52 04/13/25 10:58 Ibuprofen 600 Mg Tablet PO 04/13/25 10:53 600 mg ONCE ONE Administration Ondansetron HCl 4 mg 04/13/25 10:53 04/13/25 10:58 Ondansetron Odt 4 Mg Tab.Rapdis TRANSLINGU 04/13/25 10:54 4 mg ONCE ONE Administration Medical Decision Making Medical Decision Making [facility] Narrative: 24 year old female presents to the ED today for evaluation of nausea, vomiting, diarrhea, cough, nasal congestion x3 days. patient is febrile, tachycardic. vitals are otherwise wnl. her exam is reassuring. Differential diagnosis includes viral syndrome, bronchitis, pneumonia, gastroenteritis Plan for viral swabs, cxr, ekg Tylenol + motrin ordered. Differential Diagnosis Differential Diagnoses: The differential diagnosis associated with the presentation includes as above. Admission/Observation not indicated. Lab Data MDM Lab Attestation statement: I reviewed the patient's lab results. as above. Labs: Lab Results 04/13/25 Range/Units 09:37 Influenza Type A (PCR) POSITIVE A (Negative) Influenza Type B (PCR) NEGATIVE (Negative) RSV RNA Qual (PCR) NEGATIVE (Negative) SARS-CoV-2 RNA (RT-PCR) NEGATIVE (Negative) Independent Interpretation I performed an independent interpretation of an: Plain X-Ray Interpretation: cxr without infiltrate or consolidation Radiology Impression Discussion of test interpretation with radiology: I have reviewed the radiologist's reading. Radiologist Impression: Procedure(s): XR chest 2V Accession Number(s): [id number] cc: Fátima Curtis MD; Thelma Riley~ Reason for Exam: cough EXAMINATION: XR CHEST CLINICAL INFORMATION: cough COMPARISON: 12/07/2023. TECHNIQUE: 2 views of the chest were obtained. FINDINGS: The cardiac, hilar, and mediastinal contours are normal. The lungs are clear bilaterally. There is no pneumothorax or pleural effusion. There is no acute osseous or soft tissue abnormality. There are cholecystectomy clips present. XR/XR chest 2V IMPRESSION: No active pulmonary disease. Electronically signed by: Jaime Pickett MD 04/13/2025 09:58 AM [facility] External Record Review External record reviewed: Inpatient record Prescription Management I considered prescription management with: Other (tessalon, zofran) Social Determinants Patient?s care significantly limited by Social Determinants of Health including: Other Social Determinant of Health Critical Care Time Critical Care Time Critical Care Time: No Discharge Plan Discharge Clinical Impression: Influenza A Patient Disposition: Home, Self-Care Instructions: Influenza (ED) Additional Instructions: You tested positive for influenza A. You tested negative for COVID and RSV. Your chest x-ray is reassuring and does not show any evidence of pneumonia. Influenza is a virus and does not warrant treatment with antibiotics. Treatment for influenza is supportive. Make sure you are staying adequately hydrated and getting lots of rest. I am sending tessalon perles to your pharmacy for you to take as needed for cough. Zofran has been sent to your pharmacy for you to take as needed for nausea and vomiting. Alter ibuprofen and Tylenol for fevers and body aches. Follow up with your primary care provider. If symptoms persist or worsen please return to the emergency department. The case of an emergency call 911. Prescriptions: New ondansetron 4 mg tablet,disintegrating 4 mg PO Q8H PRN (Reason: nausea and vomiting) Qty: 10 0RF Referrals: Fátima Curtis MD [Primary Care Provider, Internal Medicine] Stand Alone Forms: Work/School Release Interventions: ED Discharge Assessment Last Done: 04/13/25 13:17 Discharge Date/Time: 04/13/25 13:19 Print Language: [place]
[2025-04-13 10:18] LABS: Resp Syncy Virus RNA Qual PCR NEGATIVE (Negative); SARS COV2 PCR INHOUSE NEGATIVE (Negative)
[2025-04-13 11:02] VITALS: BP 122/81; PULSE 120; RESP 16; O2SAT 97
[2025-04-13 12:07] VITALS: TEMP 37.8
[2025-04-13 13:17] VITALS: BP 124/75; PULSE 95; RESP 20; TEMP 37.3; O2SAT 99
--- OUTSIDE RECORDS SUMMARY | 2025-04-13 14:57 | XMS_ITS | Clinical Summary ---
Author Organization [facility] Pending [facility] Address [address] [place] [id number] Phone Care Team Providers Care Performance Test Consultant Name Role Phone NevaehTabatha brewer Primary Care Provider [phone] Allergies Active Allergy Reactions Criticality Noted Date Comments Cinnamon Anaphylaxis High 02/02/2020 Medications No known medications Active Problems Problem Noted Date Diagnosed Date Normal intrauterine , antepartum 2023 Vision changes 10/10/2023 Assessment & Plan (10/10/2023 1:14 PM EDT): Notes vision changes (blurry) off and on. Has a current DEL RIO with fever. Normotensive today Reassured not likely r/t Pre-E Will do HELLP labs to be thorough Viral infection affecting in [facility] 10/10/2023 Assessment & Plan (10/10/2023 1:13 PM EDT): [place] states that she has had a fever [...] interested in tubal or LARC GBS * Infant Feeding Plan breast Baby Ricki Assessment & [...] measures -Discussed FM at this [place] and [facility] -Review signs and symptoms of Pre-term Labor [...] History of gestational hypertension 04/04/2023 Overview (04/04/2023): Karen HELLP labs, P/C ratio: ordered with intake [...] morning of 09/01/20 09/01/20 17:00 admitted to [facility] 18:00 SVE 5/80/-2, IBOW 23:30 SVE [...] BP in office was 162/100- transported to [facility] via ambulance. BPs en route were all wnl and BPs since arrive to the unit have been wnl. HELLP labs are pending. Assessment & Plan (09/01/2020 5:48 PM EDT): BP 160/100 in office x 2 Denies current DEL RIO, visual changes, RUQ pain Feels lightheaded. Recommended going to [facility] for eval today. They do not have any transportation. Called for ambulance to transport to [facility] for eval. Normal intrauterine , antepartum 09/01/2020 [...] like the way BC makes her feel -[facility] visitor policy discussed Assessment & Plan [...] bleeding/Ucs. -Discussed FM at this [facility] and [facility] -Review signs and symptoms of pre-term Labor [...] -Advised on FM at this [place] and [facility] -CBC visitor policy discussed -RTO in 3 [...] Immunization Administration Dates Next Due COVID-19 (Pre-02/04) Pfizer Vaccine, mRNA, PF 09/29/2020,09/08/2020 DTaP 04/25/2004, 2,06/07/2000,04/03,02/02/2000 [...] Additional history exists COVID-19 VACCINE ( - 2024- season) 2024 09/29/2020, 09/08/2020 Adult Td,Tdap Booster [...] this topic Medical Devices Implanted Type Area Auditor In Charge Device Identifier Shelf Expiration Date Model / [...] AM EST) HCV NON-REACTIV E NON-REACTI VE [facility] Blood 04/23/2023 11:5 5 AM EST 04/23/2023 11:58 AM EST Asia Franca ROSINA LAB BLOOD BKR ORDERABLES Final R esult [facility] [address] [place] [address] from Last 3 Months or Most Recently Relevant to Health Maintenance Insurance C3 ACO C3 ACO C3 ACO C3 ACO C3 ACO C3 ACO C3 ACO Advance Directives For more information, please contact: [phone] (9AM - 5PM [facility], Saturday-Saturday) Documents on File Type Date Recorded Patient Conference Center Manager Expl anation Healthcare Proxy 11/14/2023 12:42 PM * Full Code (Latest Code Status on File) Date Activated Date Inactivated Comments 11/06/2023 1:12 PM Question Answer Comments Code Status Confirmed With: Patient Code Status Communicated To: Inpatient Attending Care Teams Performance Test Consultant Relationship Specialty Start Date End Date Tabatha Ceja DO [address] [place] [id number] PCP - General Pediatrics 10/18/20 Additional Source Comments The information contained in this document represents components of the legal health record. It is not the complete legal health record.[facility]
--- OUTSIDE RECORDS SUMMARY | 2025-04-13 14:57 | XMS_ITS | Clinical Summary ---
Author Organization [employer] Address [address] [place] [address] Care Team Providers Care Locomotive Electrician Name Role Phone Fátima Curtis MD Primary Care Provide r Allergies No known active allergies Medications * This document contains information received from the source organization and may not represent a complete record from that organization. buPROPion XL (Wellbutrin XL) 150 MG 24 hr tabletIndications :PTSD (post-traumatic stress disorder),Anxiety Take 1 tablet (150 mg) by mouth in the morning. Do not crush, chew, or split. 30 tablet 1 5 Active hydrOXYzine pamoate (Vistaril) 25 MG capsuleIndication s:Anxiety Take 1-2 capsules (25-50 mg) by mouth if needed at bedtime for anxiety (and sleep.). 30 capsule 5 Active ibuprofen 800 MG tablet 1 tablet every 8 hours x 7 days. Take with food 21 tablet 5 Active albuterol 108 (90 Base) MCG/ACT inhalerIndication s:Mild intermittent asthma without complication Inhale 2 puffs every 4 (four) hours if needed for wheezing. 18 g 3 5 03/08/20 26 Active SUMAtriptan (Imitrex) 50 MG tabletIndications :Migraine with aura and without status migrainosus, not intractable Take 1 tablet (50 mg) by mouth 1 (one) time if needed for migraine. May repeat dose once in 2 hours if no relief. Do not exceed 2 doses in 24 hours. 9 tablet 1 Active Active Problems Problem Noted Date Diagnosed Date Screening examination for STI 03/08/2025 Moderate major depression (CMS/HCC) 10/12/2024 Tuberculosis screening 09/03/2024 Mild intermittent asthma without complication Assessment & Plan (09/03/2024 1:44 PM EDT): Asthma is stable, continue with same interventions Anxiety 04/16/2024 Assessment & Plan (09/03/2024 1:44 PM EDT): Extensive counseling done today I will refer her to [facility] for therapist Meanwhile continue to follow-up with [...] as needed Follow-up in 3 months with ut Assessment & Plan (04/16/2024 4:25 PM EST): [...] Encounters Date Type Department Care Team Description 04/13/2025 Orders Only [facility] External Provider, [facility] 03/08/2025 9:45 AM EST Office Visit [address] [address] Fátima Curtis MD Screening examination for STI (Primary Dx); Mild intermittent asthma without complication; Migraine with aura and without status migrainosus, not intractable; Encounter for immunization; Anxiety 03/08/2025 Travel 03/05/[address] [address] Fátima Curtis MD chart prep 03/01/2025 Patient Outreach [address] [address] Fátima Curtis MD Pre-visit Planning (SDKY screening completed on 10/05/2024) 02/11/2025 Patient Outreach [address] [address] Fátima Curtis MD Care Coordination ([address] Paula Fernandes telephone call outreach) from [...] Vaccine Completed 05/15/2016, 011 HIV Screening Completed 03/08/2025, 08/11/2022 Hepatitis C Screening Completed 03/08/2025, 023 Influenza Vaccine Completed 03/08/2025, , 03/23/2020, Additional [...] Procedure Name Priority Date/Time Associated Diagnosis Comments XR CHEST 2 VIEWS Routine 04/13/2025 9:51 AM EST SARS COV2/INFLUENZA A/B AND RSV RNA QL NAAT Routine 04/13/2025 9:37 AM EST RPR (MONITOR) W/REFL TITER Routine 03/08/2025 10:23 AM EST Screening examination for STI HEPATITIS PANEL, GENERAL Routine 03/08/2025 10:23 AM EST Screening examination for STI HIV 1/2 ANTIGEN/ANTIBODY, FOURTH GENERATION W/RFL Routine 03/08/2025 10:23 AM EST Screening examination for STI CHLAMYDIA/TRICHOMON /NEISSERIA GONORRHOEAE, PCR, URINE Routine 03/08/2025 10:23 AM EST Screening examination for STI PAP SMEAR Routine 07/02/2024 12:00 AM EDT Encounter for Papanicolaou smear of cervix from Last 3 Months or Most Recently Relevant to Health Maintenance Results * XR Chest 2 Views (04/13/2025 9:51 AM EST) Anatomical Region Laterality Modality Chest Radiographic Judith ging 04/13/2025 9:51 AM EST Narrative 04/13/2025 10:01 AM EST [place] [address] XRay Report Signed Patient: Mel Millan MR#: [id number] 091 : 2000 Acct:[id number] Age/Sex: 24 / F ADM Date: 04/13/25 Loc: .ED Attending Dr: Ordering Physician: Thelma Riley Date of Service: 04/13/25 Procedure(s): XR chest 2V Accession Number(s): [id number] cc: Fátima Curtis MD; Thelma Riley Reason for Exam: cough EXAMINATION: XR CHEST CLINICAL INFORMATION: cough COMPARISON: 12/07/2023. TECHNIQUE: 2 views of the chest were obtained. FINDINGS: The cardiac, hilar, and mediastinal contours are normal. The lungs are clear bilaterally. There is no pneumothorax or pleural effusion. There is no acute osseous or soft tissue abnormality. There are cholecystectomy clips present. XR/XR chest 2V IMPRESSION: No active pulmonary disease. Electronically signed by: Jaime Pickett MD 04/13/2025 09:58 AM EST Dictated By: Jaime Pickett MD Signed By: <Electronically signed by Jaime Pickett MD in OV> 04/13/25957 DD/ 0 TD/TT: 04/13/25950 Roller Picker: Procedure Note Donotuseinterpreter, Image - 04/13/[address] [address] XRay Report Signed Patient: Mel MillanMR#: [id number] 091 : 2000Acct:[id number] Age/Sex: 24 / FADM Date: 04/13/25 Loc: .ED Attending Dr: Ordering Physician: Thelma Riley Date of Service: 04/13/25 Procedure(s): XR chest 2V Accession Number(s): [id number] cc: Fátima Curtis MD; Thelma Riley Reason for Exam: cough EXAMINATION: XR CHEST CLINICAL INFORMATION: cough COMPARISON: 12/07/2023. TECHNIQUE: 2 views of the chest were obtained. FINDINGS: The cardiac, hilar, and mediastinal contours are normal. The lungs are clear bilaterally. There is no pneumothorax or pleural effusion. There is no acute osseous or soft tissue abnormality. There are cholecystectomy clips present. XR/XR chest 2V IMPRESSION: No active pulmonary disease. Electronically signed by: Jaime Pickett MD 04/13/2025 09:58 AM EST Dictated By: Jaime Pickett MD Signed By: <Electronically signed by Jaime Pickett MD in OV> 04/13/2558 DD/ 0 TD/TT: 04/13/25950 Roller Picker: [facility] External Provider IMG XR PROCEDURES Final Result * (ABNORMAL) SARS-CoV-2 RNA, Influenza A/B, and RSV RNA, Ql NAAT (04/13/2025 9:37 AM EST) Influenza A PCR POSITIVE(A) Negative [facility] Influenza B PCR NEGATIVE Negative [facility] Resp Syncy Virus RNA Qual PCR NEGATIVE Negative [facility] SARS COV2 PCR NEGATIVE Negative [facility] Comment:All test results mus t be correlated with clinical findings.Negative results do not preclude SARS-CoV2, influenza Avirus, influenza B virus and/or RSV infectionand should not be used as the sole basis for treatment orother patient management decisions. Negative results must becombined with clinical observations, patient history, andepidemiological information.This test has not been evaluated for monitoring treatment ofinfection.This test has been authorized by the FDA under an EmergencyUse Authorization (EUA) for use by authorized laboratories.Testing performed on the [employer] GeneXpert utilizingreal-time RT-PCR.All SARS CoV2 and positive influenza A/B results arereported to [facility]. 04/13/2025 9:37 AM EST 04/13/2025 9:40 AM EST us Generic External Data Provider LAB MICROBIOLOGY - GENERAL ORDERABLES Final Result [facility] [address] [place] [phone] * Chlamydia/N. Gonorrhoeae, PCR, Urine (03/08/2025 10:23 AM EST) CT PCR, Urine NOT DETECTED Not Detect. [facility] Comment:A not detected test result does not exclude the possibilityof infection because test results can be affected byimproper specimen collection, concurrent antibiotic therapy,or the number of organisms in the specimen which may bebelow the sensitivity of the test. As with many diagnostictests, results from the Xpert CT/NG assay should beinterpreted in conjunction with other laboratory andclinical data available to the clinician.The Xpert CT/NG assay should not be used for the evaluationof suspected sexual abuse or for other medico-legalindications. Additional testing is recommended in anycircumstance when false positive or false negative resultscould lead to adverse medical, social or psychologicalconsequences. NG PCR, Urine NOT DETECTED Not Detect. [facility] Comment:A not detected test result does not exclude the possibilityof infection because test results can be affected byimproper specimen collection, concurrent antibiotic therapy,or the number of organisms in the specimen which may bebelow the sensitivity of the test. As with many diagnostictests, results from the Xpert CT/NG assay should beinterpreted in conjunction with other laboratory andclinical data available to the clinician.The Xpert CT/NG assay should not be used for the evaluationof suspected sexual abuse or for other medico-legalindications. Additional testing is recommended in anycircumstance when false positive or false negative resultscould lead to adverse medical, social or psychologicalconsequences. Urine (Urine, Random) 03/08/2025 10:23 AM EST 03/08/2025 11:12 AM EST Fátima Weaver MD LAB URINE ORDERABLES Final Result Performing Organization Address [facility] Co de Phone Number [facility] [address] [place] [phone] * Hepatitis A,B,C Profile (03/08/2025 10:23 AM EST) [facility] Hepatitis A IgM Nonreactive Nonreactive [facility] Comment:IgM antibodies to DEL RIO V not detected; does not exclude earlyacute or recovered HAV infection. ~Hepatitis B Surface Antibody NONREACTIVE Nonreactive [facility] Comment:Nonreactive: < 8.00 mIU/mL Hepatitis B Core Antibody Nonreactive Nonreactive [facility] Hepatitis C Antibody Nonreactive Nonreactive [facility] Comment:Antibodies to HCV no t detected; does not exclude early acuteHCV infection. Hepatitis B Surface Ag Negative Negative [facility] Blood Venous blood specimen / Unknown 03/08/2025 10:23 AM EST 03/08/2025 1:04 PM EST us Fátima Weaver MD LAB BLOOD ORDERABLES Final Result Performing Organization Address [facility] Co de Phone Number [facility] [address] [place] [phone] * RPR (Monitor) with Reflex to??Titer (03/08/2025 10:23 AM EST) RPR (Monitor) w/Refl Titer NON-REACTI VE NON-REACT JUAN ALBERTO [facility] Comment:THIS TEST WAS PERFOR MED AT:[facility] [place] [phone] MCDONALD MD Rapid Plasma Reagin Ab Titer TNP [facility] Blood Venous blood specimen / Unknown 03/08/2025 10:23 AM EST 03/08/2025 11:01 AM EST us Fátima Weaver MD LAB BLOOD ORDERABLES Final Result [facility] [address] [place] [phone] * HIV-1/2 Antigen and Antibodies, Fourth Generation, with Reflexes (03/08/2025 10:23 AM EST) Pathologist [facility] HIV AB/AG Nonreactive Nonreactive [facility] Comment:HIV-1 p24 Ag and/or HIV-1/HIV-2 Ab not detected.A test result that is nonreactive does not exclude thepossibility of exposure to or infection with HIV-1 and/orHIV-2. Nonreactive results in this assay for individualswith prior exposure to HIV-1 and/or HIV-2 may be due toantigen and antibody levels that are below the limit ofdetection of this assay.The [employer] HIV Ag/Ab Combo assay result andsupplemental assay results should be interpreted inconjunction with the patient's clinical presentation,history and other laboratory results. If the results areinconsistent with clinical evidence, additional testing issuggested to confirm the result. Blood Venous blood specimen / Unknown 03/08/2025 10:23 AM EST 03/08/2025 1:04 PM EST us Fátima Weaver MD LAB BLOOD ORDERABLES Final Result [facility] [address] [place] [phone] * Pap Smear (07/02/2024 12:00 AM EDT) Swab 07/02/2024 07/03/2024 8:0 5 AM EDT Narrative [facility] - 07/08/2024 10:22 AM EDT ----- ------- Name: Mel Millan Age/Sex: 23/F : 2000 Unit#: [id number] Attend Dr: Re07/02/24 Status: PRE REF Location: HO.LNP Disch: ----- ------- SPEC : [id number] RECD: 07/03/24 STATUS: TYREL CASTELLANOS NUM: [id number] HENRI: 07/02/24-[address] [facility] [address]: Fátima Curtis MD ENTERED: 07/03/24 SP TYPE: Pap Smr YAHIR DR: ORDERED: Pap Smear Interpretation Satisfactory for evaluation. Negative for intraepithelial lesion or malignancy. Clinical Information LMP:06/10/24 Previous PAP test:Normal Other surgery: Other history: Material Received ThinPrep-Cervical ----- ------- Signed (signature on file) KRYSTYNA Smith ([facility]) 07/08/24 1022 ----- ------- END OF REPORT us Fátima Weaver MD LAB CYTOLOGY ORDERABL ES Final Result [facility] [address] [place] [phone] from Last 3 Months or Most Recently Relevant to Health Maintenance [place] [address] [place] [address] STANDARD Care Teams Locomotive Electrician Relationship Specialty Start Date End Date Fátima Curtis MD [address] [place] [address] PCP - General Family Medicine 01/21/19
--- OUTSIDE RECORDS SUMMARY | 2025-04-13 14:57 | XMS_ITS | Encounter Summary ---
Author Organization [employer] Address [address] [place] [address] Care Team Providers Care Crm Consultant Name Role Phone Fátima Curtis MD Primary Care Provide r Reason for Visit * Reason Comments Med Change Request Encounter Details Date Type Department Care Team ([facility] st Contact Info) Description 04/16/[address] [facility] [address] [place] [address] Fátima Curtis MD [address] [place] [address] PTSD (post-traumatic stress disorder) Social History Tobacco [...] the past 12 months, has t he [employer] oil or water company threatened to shut [...] disorder documented in this encounter Care Teams Crm Consultant Relationship Specialty Start Date End Date Fátima Curtis MD [address] [place] [address] PCP - General Family Medicine 01/21/19 documented as of this encounter
--- OUTSIDE RECORDS SUMMARY | 2025-04-13 14:58 | XMS_ITS | Encounter Summary ---
Author Organization [employer] Address [address] [facility] [address] [place] [address] Care Team Providers Care Spectrographic Analyst Name Role Phone Fátima Curtis MD Primary Care Provide r Encounter Details Date Type Department Care Team ([facility] st Contact Info) Description 04/13/2025 Orders Only [facility] External Provider, [facility] Social History Tobacco Use Types Packs/Day Years [...] on file documented as of this encounter Procedures Procedure Name Priority Date/Time Associated Diagnosis Comments XR CHEST 2 VIEWS Routine 04/13/2025 9:51 AM EST SARS COV2/INFLUENZA A/B AND RSV RNA QL NAAT Routine 04/13/2025 9:37 AM EST documented in this encounter Results * XR Chest 2 Views (04/13/2025 9:51 AM EST) Anatomical Region Laterality Modality Chest Radiographic Judith ging 04/13/2025 9:51 AM EST Narrative 04/13/2025 10:01 AM EST [place] [address] XRay Report Signed Patient: Mel Millan MR#: [id number] 091 : 2000 Acct:[id number] Age/Sex: 24 / F ADM Date: 04/13/25 Loc: HO.ED Attending Dr: Ordering Physician: Thelma Riley Date of Service: 04/13/25 Procedure(s): XR chest 2V Accession Number(s): [id number] cc: Fátima Curtis MD; Thelma Riley Reason [...] Jaime Pickett MD 04/13/2025 09:58 AM EST RP Dictated By: Jaime Pickett MD Signed By: <Electronically signed by Jaime Pickett MD in OV> 04/13/25957 DD/ 0 TD/TT: 04/13/25950 Heart Coordinator: Procedure Note Donotuseinterpreter, Image - 04/13/2025 [place] [address] XRay Report Signed Patient: Federico Millan#: [id number] 091 : 2000Acct:[id number] Age/Sex: 24 FADM Date: 04/13/25 Loc: .ED Attending Dr: Ordering Physician: Thelma Riley Date of Service: 04/13/25 Procedure(s): XR chest 2V Accession Number(s): [id number] cc: Fátima Curtis MD; Thelma Riley Reason [...] Jaime Pickett MD 04/13/2025 09:58 AM EST RP Dictated By: Jaime Pickett MD Signed By: <Electronically signed by Jaime Pickett MD in OV> 04/13/25957 DD/ 0 TD/TT: 04/13/25950 Heart Coordinator: [facility] External Provider IMG XR PROCEDURES Final Result * (ABNORMAL) SARS-CoV-2 RNA, Influenza A/B, and RSV RNA, Ql NAAT (04/13/2025 9:37 AM EST) Influenza A PCR POSITIVE(A) Negative [facility] Influenza B PCR NEGATIVE Negative [facility] Resp Syncy Virus RNA Qual PCR NEGATIVE Negative [facility] SARS COV2 PCR NEGATIVE Negative [facility] Comment:All test results mus t be [...] use by authorized laboratories.Testing performed on the [employer] GeneXpert utilizingreal-time RT-PCR.All SARS CoV2 and positive influenza A/B results arereported to [facility]. 04/13/2025 9:37 AM EST 04/13/2025 9:40 AM EST us Generic External Data Provider LAB MICROBIOLOGY - GENERAL ORDERABLES Final Result [facility] [address] [place] [phone] documented in this encounter Visit Diagnoses Not on filedocumented in this encounter Additional Health Concerns Assessment Noted Time PHQ-9 Depression Total Score: 13 025 2:48 PM EDT documented as of this encounter Care Teams Spectrographic Analyst Relationship Specialty Start Date End Date Fátima Curtis MD [address] [place] [address] PCP - General Family Medicine 01/21/19 documented as of this encounter
== END 2025-04-13 13:19 | disposition home or self-care (01) ==
PROVIDERS: Physician Assistant Medical; Emergency Provider Emergency Medicine; PCP Internal Medicine
DX: J10.1 Influenza due to other identified influenza virus with other respiratory manifestations (principal); R05.9 Cough, unspecified; Z03.818 Encounter for observation for suspected exposure to other biological agents ruled out
CPT/HCPCS: 71046; 87637; 93005; 99283; 99285

== ENCOUNTER → 2025-04-13 09:09 | Outpatient (BNV) | payer MEDICAID, SELFPAY | PROVIDERS: Emergency Provider Emergency Medicine; PCP Internal Medicine; Visit Provider Internal Medicine | DX: R00.0 Tachycardia, unspecified (principal) | CPT/HCPCS: 93010 ==

== ENCOUNTER → 2025-04-13 09:31 | Outpatient (BNV) | payer MEDICAID, SELFPAY | PROVIDERS: Emergency Provider Emergency Medicine; PCP Internal Medicine; Visit Provider Radiology Diagnostic Radiology | DX: R05.9 Cough, unspecified (principal) | CPT/HCPCS: 71046 ==